=== PATIENT | male | born 1965 | race Caucasian/White ===

== ENCOUNTER 2021-03-12 08:06 | Outpatient (REF) | payer BC, SELFPAY ==
[2021-03-12 10:09] LABS: MANUAL DIFF FLAG NO
[2021-03-12 10:22] LABS: Basophils Absolute Auto 0.1 X10*3/uL (0.0-0.2); Basophils Percent Auto 0.8 % (0-2); Eosinophils Absolute Auto 0.3 X10*3/uL (0.0-0.4); Eosinophils Percent Auto 4.5 % (0-4); Hematocrit 40.7 % (42.0-52.0); Hemoglobin 13.6 g/dl (14.0-18.0); Imm Gran Abs Auto 0.01 X10*3/uL (0.00-0.03); Imm Gran Pct Auto 0.1 % (0.0-0.4); Lymphocytes Absolute Auto 4.1 X10*3/uL (1.2-4.9); Lymphocytes Percent Auto 54.8 % (20-40); Mean Corpuscular HGB Conc 33.4 g/dl (31.0-36.0); Mean Corpuscular Hemoglobin 30.8 pg (27.0-33.0); Mean Corpuscular Volume 92.1 fL (80.0-98.0); Mean Platelet Volume 11.1 fL (9.4-12.4); Monocytes Absolute Auto 0.7 X10*3/uL (0.1-1.2); Monocytes Percent Auto 9.4 % (2-11); Neutrophils Absolute Auto 2.3 x10*3/uL (2.0-8.3); Neutrophils Percent Auto 30.4 % (45-73); Platelet Count 174 X10*3/uL (160-400); Red Blood Count 4.42 X10*6/uL (4.60-5.80); Red Cell Distribution Width 12.8 % (11.0-16.0); White Blood Count 7.5 X10*3/uL (4.8-10.8)
[2021-03-12 10:44] LABS: Alanine Aminotransferase 42 U/L (0-40); Alkaline Phosphatase 50 U/L (39-117); Anion Gap 9 (12-20); Aspartate Amino Transferase 40 U/L (5-37); Bilirubin Total 0.5 mg/dL (0.0-1.0); Blood Urea Nitrogen 14 mg/dL (9-16); Calcium 8.7 mg/dL (8.4-10.2); Carbon Dioxide 29 mmol/L (22-29); Chloride 105 mmol/L (96-108); Cholesterol 206 mg/dL; Estimated Glomerular Filt Rate > 60; Glucose Fasting 95 mg/dL (60-99); HDL Cholesterol 30 mg/dL; LDL Cholesterol Calculated 115 mg/dl; Potassium 4.1 mmol/L (3.3-5.1); Sodium 139 mmol/L (135-145); Total Protein 7.7 g/dL (6.5-8.0); Triglycerides 309 mg/dL
[2021-03-12 11:06] LABS: Ferritin 134 ng/mL (20-250); PSA,Total (Free>4and<10) 1.11 ng/mL (0.00-4.00); Vitamin D 25-OH Total 40.8 ng/mL (>30)
[2021-03-12 11:14] LABS: Estimated Average Glucose 114 mg/dL; Hemoglobin A1c % 5.6 %
== END 2021-03-12 08:07 | disposition home or self-care (01) ==
LOC: HO.10HDL 08:06
PROVIDERS: Visit Provider Internal Medicine Medical Oncology
DX: Z12.5 Encounter for screening for malignant neoplasm of prostate (principal); R10.11 Right upper quadrant pain; K62.89 Other specified diseases of anus and rectum; C44.311 Basal cell carcinoma of skin of nose; K80.20 Calculus of gallbladder without cholecystitis without obstruction
CPT/HCPCS: 36415; 80053; 80061; 82306; 82378; 82728; 83036; 84153; 85025

== ENCOUNTER 2021-03-22 09:01 | Outpatient (REF) | payer BC, SELFPAY ==
--- NOTE | ~2021-03-22 | US_ITS ---
EXAMINATION: US ABDOMEN COMPLETE CLINICAL INFORMATION: Right upper quadrant pain. Calculus of gallbladder without cholecystitis. COMPARISON: None TECHNIQUE: Real-time imaging of the abdominal viscera. FINDINGS: PANCREAS: Normal. ABDOMINAL AORTA: The proximal, mid, and distal segments are normal in caliber. INFERIOR VENA CAVA: Visualized portions are normal. LIVER: The liver is normal in size. The liver contour is normal. There is diffuse liver echogenicity. No focal hepatic lesion. There is no intrahepatic biliary duct dilatation seen. GALLBLADDER: Normal. The gallbladder is physiologically distended without evidence of stones, sludge, polyps, wall thickening or pericholecystic fluid. COMMON BILE DUCT: Normal in caliber measuring 0.7 cm in diameter. RIGHT KIDNEY: Normal. No hydronephrosis. No renal calculi or focal parenchymal lesions. The kidney measures 10.4 cm in maximum dimension. LEFT KIDNEY: Normal. No hydronephrosis. No renal calculi or focal parenchymal lesions. The kidney measures 11.1 cm in maximum dimension. SPLEEN: Normal. The spleen measures 9.7 cm in maximum dimension. FREE FLUID: None. US/US abdomen complete IMPRESSION: Diffuse hepatic steatosis. No focal lesion seen. The gallbladder is unremarkable. Rest of the abdominal ultrasound is unremarkable.
== END 2021-03-22 09:02 | disposition home or self-care (01) ==
LOC: HO.HMGCX 09:01
PROVIDERS: PCP Internal Medicine Medical Oncology; Visit Provider Internal Medicine Medical Oncology
DX: R10.11 Right upper quadrant pain (principal); K80.20 Calculus of gallbladder without cholecystitis without obstruction
CPT/HCPCS: 76700

== ENCOUNTER 2021-04-05 11:32 | Outpatient (REF) | payer BC, SELFPAY ==
[2021-04-05 14:04] LABS: C Reactive Protein 0.12 mg/dL (< or = 0.50)
[2021-04-05 14:27] LABS: TSH reflex Free T4 1.34 uIU/mL (0.32-4.0)
[2021-04-08 16:06] LABS: Gliadin Deamidated IgA Ab 2.7 U/mL; Gliadin Deamidated IgG Ab <1.0 U/mL; Transglutaminase Ab IgG <1.0 U/mL; Transglutaminase IgA <1.0 U/mL
== END 2021-04-05 11:33 | disposition home or self-care (01) ==
LOC: HO.LAB 11:32
PROVIDERS: PCP Internal Medicine Medical Oncology; Visit Provider Nurse Practitioner
DX: R22.9 Localized swelling, mass and lump, unspecified (principal); R10.11 Right upper quadrant pain; K58.0 Irritable bowel syndrome with diarrhea; E66.9 Obesity, unspecified; K64.9 Unspecified hemorrhoids; Z12.11 Encounter for screening for malignant neoplasm of colon
CPT/HCPCS: 36415; 83516; 84443; 86140

== ENCOUNTER 2021-04-06 14:00 | Outpatient (REF) | payer BC, SELFPAY | END 2021-04-06 14:01 | disposition home or self-care (01) | LOC: HO.LNP 14:00 | PROVIDERS: Visit Provider Nurse Practitioner | DX: K58.0 Irritable bowel syndrome with diarrhea (principal); Z12.11 Encounter for screening for malignant neoplasm of colon; Z11.0 Encounter for screening for intestinal infectious diseases | CPT/HCPCS: 87338 ==

== ENCOUNTER → 2021-05-06 11:57 | Outpatient (BNVA) | payer BC, SELFPAY | PROVIDERS: PCP Internal Medicine Medical Oncology; Visit Provider Nurse Practitioner ==

== ENCOUNTER 2021-05-18 07:52 | Day surgery (SDC) | payer BC, SELFPAY ==
[2021-05-12 09:49] VITALS: BMI 30.4
--- NOTE | 2021-05-17 10:34 | P.CONAN_ITS ---
Documented by User: Anny Michael NP 05/17/21 10:35 HPI - Anesthesia Eval Consult details Narrative: 56yo M for Upper Endoscopy and Colonoscopy FOR[facility] Active Problems Active Problems: All Active Problems (Updated 04/13/21 @ 09:04 by TEE Malone) GERD (gastroesophageal reflux disease) (Acute) H. pylori infection (Acute) Irritable bowel syndrome with diarrhea (Acute) Hemorrhoids (Acute) High cholesterol (Acute) Chronic low back pain (Acute) Obesity (Acute) Colon cancer screening (Acute) Past Medical History Medical History History of basal cell carcinoma Social History Social History Are you a primary long term care phlebotomist to a significant other at home: Yes Do you presently have visiting nurse or other home services: No Patient Tobacco Use Status: Former Tobacco user Quit Date: 2018 Patient Interested in Nicotine Replacement: Yes (has nicotine replacement presently) Use of substances other than those prescribed or required for medical reasons: No Are you DNR?: No Advance Directives: No Advance Directives Information Provided: Yes Recently lost weight without trying: No Nutrition Risks: No Nutritional Risk Poor oral hygiene: No Meds Allergies Allergy/AdvReac Type Severity Reaction Status Date / Time No Known Allergies Allergy Verified 05/06/21 12:13 Home Medications Medication Instructions Recorded Confirmed Last Taken Type nicotine (polacrilex) 2 mg buccal 2 mg BUCCAL Q8H PRN 04/05/21 Unknown History lozenge Exam Exam Date and Time: May 17, 2021 1034 Height,Weight and Vital Signs: Height 5 ft 7 in Weight 87.997 kg Pertinent Lab Results Pertinent Lab Results: Laboratory Tests 03/12/21 03/12/21 08:14 08:14 WBC 7.5 Hgb 13.6 L Hct 40.7 L Plt Count 174 Sodium 139 Potassium 4.1 Chloride 105 Carbon Dioxide 29 BUN 14 Creatinine 0.94 Assessment and Plan Assessment Anesthesia Assessment: Chart Reviewed Documented by User: Almas Garcia MD 05/18/21 09:27 [facility] Past Medical History Medical History History of basal cell carcinoma Family History Family history of problems with anesthesia: No Surgical History History of Problems with Anesthesia: No Social History Social History Are you a primary long term care phlebotomist to a significant other at home: Yes Do you presently have visiting nurse or other home services: No Patient Tobacco Use Status: Former Tobacco user Quit Date: 2018 Patient Interested in Nicotine Replacement: Yes (has nicotine replacement prese ntly) Use of substances other than those prescribed or required for medical reasons: No Are you DNR?: No Advance Directives: No Advance Directives Information Provided: Yes Recently lost weight without trying: No Nutrition Risks: No Nutritional Risk Poor oral hygiene: No Meds Allergies Allergy/AdvReac Type Severity Reaction Status Date / Time No Known Allergies Allergy Verified 05/06/21 12:13 Home Medications Medication Instructions Recorded Confirmed Last Taken Type nicotine (polacrilex) 2 mg buccal 2 mg BUCCAL Q8H PRN 04/05/21 Unknown History lozenge Exam Airway Mallampati Class: II TM Dist: >3cm Denture: Upper and Lower Loose/Missing/Broken Teeth: Yes Heart: [id number] Lungs: cta b/l Assessment and Plan Assessment Anesthesia Assessment: Anesthesia Plan Discussed Final Anesthetic Review Family History of Problems with Anesthesia: No History of Problems with Anesthesia: No NPO: Yes ASA Class: II Final Preanesthetic Review: No Changes in Pt Med Stat, Meds/Allgs Chart Reviewed, Consent Obtained/Reviewed and Anes Risks/Benef Reviewed Patient Risk: Intermediate Procedure Risk: Low Assessment/Block/Sedation in SS: Assess/Block/Sedation-SS Anesthetic Plan Anesthetic Plan: MAC: and Agree w/ Assess. and Plan Disposition: Standard PACU
--- NOTE | 2021-05-18 08:21 | P.BOP_ITS ---
Brief Operative Note Date of Service: 05/18/21 Pre-op diagnosis: Colon cancer screening, chronic diarrhea, rectal bleeding, nausea, persistent H pylori infection Post-op diagnosis: other (Gastritis, diverticulosis, hemorrhoids, rectal polyp/mass) Procedure: FLEXIBLE TRANSORAL UPPER GASTROINTESTINAL ENDOSCOPY WITH BIOPSIES AND COLONOSCOPY TILL CECUM WITH BIOPSIES AND SNARE POLYPECTOMY UPPER ENDOSCOPY Consent: Indications for the procedure and potential complications of bleeding, perforation, reaction to medications and missed diagnosis were discussed with the patient and informed consent was obtained. Instrument: Olympus GIF H 190 mid size upper endoscope Monitoring: Vital signs and clinical assessment, continuous EKG monitoring, Pulse oximetry, Carbon Dioxide monitoring and blood pressure monitoring were done throughout the procedure. Procedure: The patient was placed in the left lateral decubitis position and pre-procedure medications were administered and a bite block was placed. The endoscope was inserted into the mouth and advanced under direct vision to the third part of duodenum. A careful inspection was made as the upper endoscope was withdrawn including a retroflexed examination of the proximal stomach; Findings and interventions are described below. Findings: Larynx: Normal Esophagus: GE junction at 40 cms. No esophagitis or Null's. Stomach: Moderate diffuse gastric erythema. Biopsies were obtained from the antrum and body of the stomach. Antral biopsies were sent for H Pylori culture & sensitivities. Grade 2 flap valve on retroflexed examination of the cardia. Duodenum: Normal bulb and descending duodenum. Biopsies were obtained from 3rd part of duodenum to check for celiac sprue. Intervention: Biopsies as noted above COLONOSCOPY PROCEDURE NOTE Consent: Indications for the procedure and potential complications of bleeding, perforation, reaction to medications and missed diagnosis were discussed with the patient and informed consent was obtained. Instrument: Olympus PCF H 190 L variable stiffness pediatric colonoscope Monitoring: Vital signs and clinical assessment, intermittent blood pressure monitoring, continuous EKG monitoring, Pulse oximetry and Carbon Dioxide monitoring were done throughout the procedure. Colon withdrawl time was 21 minutes. Procedure: The patient was placed in the left lateral decubitis position and pre-procedure medications were administered. After a digital rectal examination of the ano-rectum, the video colonoscope was inserted into the rectum and advanced through the colon to the cecum. The colonoscope was slowly withdrawn in a retrograde panoramic fashion and the colon mucosa was carefully examined including a retroflexed view of the rectum. Findings and interventions are described below. Procedure Difficulty: : Without difficulty Findings: Terminal Ileum: Not evaluated Cecum: Normal Ascending Colon: Moderate scattered diverticulosis throughout the colon. Transverse Colon: Moderate scattered diverticulosis throughout the colon. Descending Colon: Moderate scattered diverticulosis throughout the colon. Sigmoid Colon: Moderate diverticulosis Rectum: A 4-5 cms friable and ulcerated mass in the distal rectum - 1-2 cms inside the anal verge. Polypoidal component was removed with a snare (came off before cautery could be applied) and multiple biopsies obtained from the ucerated component Ano-rectum: Moderate non-bleeding internal hemorrhoids Colon preparation: Good Impression and Post Procedure Diagnosis: Endoscopy Findings: STOMACH: Moderate diffuse gastric erythema. Biopsies were obtained from the antrum and body of the stomach. Antral biopsies were sent for H Pylori culture & sensitivities. DUODENUM: Normal - biopsied to check for celiac sprue Colonoscopy Findings: A 4-5 cms friable and ulcerated mass in the distal rectum - 1-2 cms inside the anal verge. Polypoidal component was removed with a snare (came off before cautery could be applied) and multiple biopsies obtained from the ucerated component Moderate diverticulosis seen in the entire colon Moderate hemorrhoids on retroflexed exam. Plan: Await pathology results Patient has an appointment on 06/03/21 in the GI Clinic with Lashae Kohler NP. Repeat Colonoscopy interval based on path results - in 6 to 12 months if rectal mass is malignant. Above findings were reviewed with the patient and Helicobacter Pylori, colon polyps and diverticulosis handouts were given in the discharge area ADDENDUM: Pt called and colon bx results reviewed: D.? Colon, random, biopsy:? Colonic mucosa within normal limits; negative for microscopic colitis. E.? 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 Pt advised to have labs, Chest and Abd CT scan and Pelvic MRI for staging. Urgent referral sent to Oncology. Surgeon: Yogi Guzmán MD Anesthesia: MAC (Dr Prasad) Was an Associate Professor Of Automation used for this Procedure?: Yes Associate Professor Of Automation: Ayah Vieira Estimated blood loss (mL): 0 Pathology: other (a: small bowel bx's b: bx's gastric antrum c: bx's gastric body d: random colon bx's r/o microscopic colitis e: rectal mass) Condition: stable Disposition: PACU
--- NOTE | 2021-05-18 08:21 | MHC.SHP ---
Pre-Procedural Eval Section A Date of Service: 05/18/21 The patient is an INPATIENT: No Changes since office visit: Yes Patient answered all questions; No Cold of Flu in the past 2 weeks, No New Medical Problems and No Changes in Medication The History & Physical has been completed within 30 days and I have reviewed it.: Yes Section B Chief Complaint: GERD, Screening Allergies: Allergies Allergy/AdvReac Type Severity Reaction Status Date / Time No Known Allergies Allergy Verified 05/06/21 12:13 Plan I have reviewed the history and physical and performed a pertinent physical examination on my patient. No changes have occurred unless specified.
--- NOTE | 2021-05-18 08:21 | W.PM.OPN ---
Operative Note Operative Note Date of Service: 05/18/21 Narrative: Pre-op diagnosis:?Colon cancer screening, chronic diarrhea, rectal bleeding, nausea, persistent H pylori infection Post-op diagnosis:?other (Gastritis, diverticulosis, hemorrhoids, rectal polyp/mass) Procedure: FLEXIBLE TRANSORAL UPPER GASTROINTESTINAL ENDOSCOPY WITH BIOPSIES AND COLONOSCOPY TILL CECUM WITH BIOPSIES AND SNARE POLYPECTOMY UPPER ENDOSCOPY Consent:?Indications for the procedure and potential complications of bleeding, perforation, reaction to medications and missed diagnosis were discussed with the patient and informed consent was obtained. Instrument:?Olympus GIF H 190 mid size upper endoscope Monitoring: Vital signs and clinical assessment, continuous EKG monitoring, Pulse oximetry, Carbon Dioxide monitoring and blood pressure monitoring were done throughout the procedure. Procedure:?The patient was placed in the left lateral decubitis position and pre-procedure medications were administered and a bite block was placed. The endoscope was inserted into the mouth and advanced under direct vision to the third part of duodenum. A careful inspection was made as the upper endoscope was withdrawn including a retroflexed examination of the proximal stomach; Findings and interventions are described below. Findings: Larynx:? Normal Esophagus:?GE junction at 40 cms.? No esophagitis or Null's. Stomach:?Moderate diffuse gastric erythema. Biopsies were obtained from the antrum and body of the stomach. Antral biopsies were sent for H Pylori culture & sensitivities. Grade 2 flap valve on retroflexed examination of the cardia. Duodenum:?Normal bulb and descending duodenum.? Biopsies were obtained from 3rd part of duodenum to check for celiac sprue. Intervention:?Biopsies as noted above COLONOSCOPY PROCEDURE NOTE Consent:?Indications for the procedure and potential complications of bleeding, perforation, reaction to medications and missed diagnosis were discussed with the patient and informed consent was obtained. Instrument:?Olympus PCF H 190 L variable stiffness pediatric colonoscope Monitoring:?Vital signs and clinical assessment, intermittent blood pressure monitoring, continuous EKG monitoring, Pulse oximetry and Carbon Dioxide monitoring were done throughout the procedure. Colon withdrawl time was 21 minutes. Procedure:?The patient was placed in the left lateral decubitis position and pre-procedure medications were administered. After a digital rectal examination of the ano-rectum, the video colonoscope was inserted into the rectum and advanced through the colon to the cecum. The colonoscope was slowly withdrawn in a retrograde panoramic fashion and the colon mucosa was carefully examined including a retroflexed view of the rectum. Findings and interventions are described below. Procedure Difficulty:?: Without difficulty Findings: Terminal Ileum: Not evaluated Cecum:? Normal Ascending Colon:??Moderate scattered diverticulosis throughout the colon. Transverse Colon:??Moderate scattered diverticulosis throughout the colon. Descending Colon:? Moderate scattered diverticulosis throughout the colon. Sigmoid Colon:??Moderate diverticulosis Rectum:??A 4-5 cms friable and ulcerated mass in the distal rectum - 1-2 cms inside the anal verge. Polypoidal component was removed with a snare (came off before cautery could be applied) and multiple biopsies obtained from the ucerated component Ano-rectum:??Moderate non-bleeding internal hemorrhoids Colon preparation: Good? Impression and Post Procedure Diagnosis: Endoscopy Findings: STOMACH: Moderate diffuse gastric erythema. Biopsies were obtained from the antrum and body of the stomach. Antral biopsies were sent for H Pylori culture & sensitivities. DUODENUM: Normal - biopsied to check for celiac sprue Colonoscopy Findings: A 4-5 cms friable and ulcerated mass in the distal rectum - 1-2 cms inside the anal verge. Polypoidal component was removed with a snare (came off before cautery could be applied) and multiple biopsies obtained from the ucerated component Moderate diverticulosis seen in the entire colon Moderate hemorrhoids on retroflexed exam. Plan: Await pathology results Patient has an appointment on 06/03/21 in the GI Clinic with? Lashae Kohler NP. Repeat Colonoscopy interval based on path results - in 6 to 12 months if rectal mass is malignant. Above findings were reviewed with the patient and Helicobacter Pylori, colon polyps and diverticulosis handouts were given in the discharge area ADDENDUM: Pt called and colon bx results reviewed: D.? Colon, random, biopsy:? Colonic mucosa within normal limits; negative for microscopic colitis. E.? 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 Pt advised to have labs, Chest and Abd CT scan and Pelvic MRI for staging. Urgent referral sent to Oncology (Dr Pineda who is also patient's PCP). Surgeon:?Yogi Guzmán MD Anesthesia:?MAC (Dr Prasad) Was an Cleaning Validation Consultant used for this Procedure?:?Yes Cleaning Validation Consultant:?Ayah Vieira Estimated blood loss (mL):?0 Pathology:?other (a: small bowel bx's? b: bx's gastric antrum? c: bx's gastric body? d: random colon bx's r/o microscopic colitis? e: rectal mass) Condition:?stable Disposition:?PACU
[2021-05-18 08:50] VITALS: BP 129/81; PULSE 72; RESP 18; TEMP 36.8; O2SAT 97; BMI 30.4
[2021-05-18 10:31] VITALS: BP 98/58; PULSE 78; RESP 15; TEMP 36.6; O2SAT 97
[2021-05-18 10:46] VITALS: BP 136/86; PULSE 64; RESP 18; TEMP 36.6; O2SAT 98
== END 2021-05-18 11:20 ==
LOC: HO.SSS 07:52
PROVIDERS: PCP Internal Medicine Medical Oncology; Visit Provider Internal Medicine Gastroenterology
PROC: (CPT 45385; principal; 2021-05-18 09:20)
DX: Z12.11 Encounter for screening for malignant neoplasm of colon (principal); C20 Malignant neoplasm of rectum; K52.9 Noninfective gastroenteritis and colitis, unspecified; K57.30 Diverticulosis of large intestine without perforation or abscess without bleeding; K64.8 Other hemorrhoids; K21.9 Gastro-esophageal reflux disease without esophagitis; K29.50 Unspecified chronic gastritis without bleeding; A04.8 Other specified bacterial intestinal infections; Z85.828 Personal history of other malignant neoplasm of skin; Z87.891 Personal history of nicotine dependence; Z79.899 Other long term (current) drug therapy
CPT/HCPCS: 45385; 45380; 43239; 36415; 87081; 88305; 88341; 88342

== ENCOUNTER → 2021-06-03 07:08 | Outpatient (BNVA) | payer BC, SELFPAY | PROVIDERS: PCP Internal Medicine Medical Oncology; Visit Provider Nurse Practitioner | DX: C20 Malignant neoplasm of rectum (principal); A04.8 Other specified bacterial intestinal infections; K21.9 Gastro-esophageal reflux disease without esophagitis; K58.0 Irritable bowel syndrome with diarrhea | CPT/HCPCS: 46600 ==

== ENCOUNTER 2021-12-14 11:45 | Outpatient (REF) | payer BC, SELFPAY | END 2021-12-14 11:46 | disposition home or self-care (01) | LOC: HO.LNP 11:45 | PROVIDERS: Visit Provider Nurse Practitioner | DX: A04.8 Other specified bacterial intestinal infections (principal) | CPT/HCPCS: 87338 ==

== ENCOUNTER 2022-02-14 10:44 | Outpatient (REF) | payer BC, SELFPAY ==
[2022-02-14 13:46] LABS: MANUAL DIFF FLAG NO
[2022-02-14 13:52] LABS: Basophils Absolute Auto 0.1 X10*3/uL (0.0-0.2); Basophils Percent Auto 1.6 % (0-2); Eosinophils Absolute Auto 0.2 X10*3/uL (0.0-0.4); Eosinophils Percent Auto 4.5 % (0-4); Hematocrit 38.3 % (42.0-52.0); Hemoglobin 12.3 g/dl (14.0-18.0); Lymphocytes Absolute Auto 2.7 X10*3/uL (1.2-4.9); Lymphocytes Percent Auto 52.8 % (20-40); Mean Corpuscular HGB Conc 32.1 g/dl (31.0-36.0); Mean Corpuscular Hemoglobin 27.3 pg (27.0-33.0); Mean Corpuscular Volume 85.1 fL (80.0-98.0); Mean Platelet Volume 10.6 fL (9.4-12.4); Monocytes Absolute Auto 0.6 X10*3/uL (0.1-1.2); Monocytes Percent Auto 11.4 % (2-11); Neutrophils Absolute Auto 1.5 x10*3/uL (2.0-8.3); Neutrophils Percent Auto 29.7 % (45-73); Platelet Count 161 X10*3/uL (160-400); Red Cell Distribution Width 18.1 % (11.0-16.0); White Blood Count 5.1 X10*3/uL (4.8-10.8)
[2022-02-14 14:04] LABS: Alanine Aminotransferase 32 U/L (0-40); Albumin Level 3.9 g/dL (3.5-5.0); Alkaline Phosphatase 60 U/L (39-117); Anion Gap 13 (12-20); Aspartate Amino Transferase 34 U/L (5-37); Bilirubin Total 0.2 mg/dL (0.0-1.0); Blood Urea Nitrogen 15 mg/dL (9-16); Calcium 8.8 mg/dL (8.4-10.2); Carbon Dioxide 27 mmol/L (22-29); Chloride 104 mmol/L (96-108); Cholesterol 209 mg/dL; Estimated Glomerular Filt Rate > 60; Glucose Fasting 97 mg/dL (60-99); HDL Cholesterol 28 mg/dL; Potassium 4.2 mmol/L (3.3-5.1); Sodium 140 mmol/L (135-145); Total Protein 7.8 g/dL (6.5-8.0); Triglycerides 441 mg/dL
[2022-02-14 15:58] LABS: Prostate Specific Antigen 5.42 ng/mL (<0.05-4.0)
== END 2022-02-14 10:45 | disposition home or self-care (01) ==
LOC: HO.10HDL 10:44
PROVIDERS: Internal Medicine; Visit Provider Internal Medicine Medical Oncology
DX: Z12.5 Encounter for screening for malignant neoplasm of prostate (principal); E66.3 Overweight; C20 Malignant neoplasm of rectum; N40.0 Benign prostatic hyperplasia without lower urinary tract symptoms
CPT/HCPCS: 36415; 80053; 80061; 84153; 85025

== ENCOUNTER → 2022-05-31 09:04 | Outpatient (BNVA) | payer BC, SELFPAY | PROVIDERS: PCP Internal Medicine Medical Oncology; Visit Provider Nurse Practitioner | DX: Z13.89 Encounter for screening for other disorder (principal) ==

== ENCOUNTER → 2022-06-21 12:18 | Outpatient (BNVA) | payer BC, SELFPAY | PROVIDERS: PCP Internal Medicine Medical Oncology; Visit Provider Nurse Practitioner | DX: Z13.89 Encounter for screening for other disorder (principal) ==

== ENCOUNTER 2022-08-16 11:45 | Outpatient (REF) | payer BC, SELFPAY ==
[2022-08-16 13:19] LABS: MANUAL DIFF FLAG NO
[2022-08-16 13:24] LABS: Basophils Absolute Auto 0.1 X10*3/uL (0.0-0.2); Basophils Percent Auto 1.1 % (0-2); Eosinophils Absolute Auto 0.2 X10*3/uL (0.0-0.4); Eosinophils Percent Auto 3.4 % (0-4); Hematocrit 41.6 % (42.0-52.0); Hemoglobin 13.7 g/dl (14.0-18.0); Imm Gran Abs Auto 0.02 X10*3/uL (0.00-0.03); Imm Gran Pct Auto 0.3 % (0.0-0.4); Lymphocytes Absolute Auto 3.6 X10*3/uL (1.2-4.9); Lymphocytes Percent Auto 57.8 % (20-40); Mean Corpuscular HGB Conc 32.9 g/dl (31.0-36.0); Mean Corpuscular Hemoglobin 29.8 pg (27.0-33.0); Mean Corpuscular Volume 90.6 fL (80.0-98.0); Mean Platelet Volume 10.7 fL (9.4-12.4); Monocytes Absolute Auto 0.5 X10*3/uL (0.1-1.2); Monocytes Percent Auto 8.4 % (2-11); Neutrophils Absolute Auto 1.8 x10*3/uL (2.0-8.3); Platelet Count 158 X10*3/uL (160-400); Red Blood Count 4.59 X10*6/uL (4.60-5.80); Red Cell Distribution Width 13.7 % (11.0-16.0); White Blood Count 6.2 X10*3/uL (4.8-10.8)
[2022-08-16 13:40] LABS: Alanine Aminotransferase 33 U/L (0-40); Albumin Level 3.9 g/dL (3.5-5.0); Alkaline Phosphatase 69 U/L (39-117); Anion Gap 10 (12-20); Aspartate Amino Transferase 31 U/L (5-37); Bilirubin Total 0.3 mg/dL (0.0-1.0); Blood Urea Nitrogen 13 mg/dL (9-16); Calcium 8.8 mg/dL (8.4-10.2); Carbon Dioxide 26 mmol/L (22-29); Chloride 109 mmol/L (96-108); Estimated Glomerular Filt Rate > 60; Glucose Random 120 mg/dL (60-115); Potassium 4.2 mmol/L (3.3-5.1); Sodium 141 mmol/L (135-145); Total Protein 7.4 g/dL (6.5-8.0)
[2022-08-17 10:19] LABS: Free Prostate Spec Ag 0.9 ng/mL; Percent Free Prostate Spec Ag 32 % (calc) (>25); Prostate Specific Ag Total 2.8 ng/mL (< OR = 4.0)
== END 2022-08-16 11:46 | disposition home or self-care (01) ==
LOC: HO.10HDL 11:45
PROVIDERS: Visit Provider Internal Medicine Medical Oncology
DX: Z12.5 Encounter for screening for malignant neoplasm of prostate (principal); E66.3 Overweight; C20 Malignant neoplasm of rectum; N40.0 Benign prostatic hyperplasia without lower urinary tract symptoms
CPT/HCPCS: 36415; 80053; 84154; 85025

== ENCOUNTER 2023-02-14 11:35 | Outpatient (REF) | payer BC, SELFPAY ==
[2023-02-14 13:28] LABS: MANUAL DIFF FLAG NO
[2023-02-14 13:57] LABS: Basophils Absolute Auto 0.1 X10*3/uL (0.0-0.2); Basophils Percent Auto 1.3 % (0-2); Eosinophils Absolute Auto 0.3 X10*3/uL (0.0-0.4); Eosinophils Percent Auto 4.2 % (0-4); Hematocrit 43.4 % (42.0-52.0); Hemoglobin 14.5 g/dl (14.0-18.0); Imm Gran Abs Auto 0.01 X10*3/uL (0.00-0.03); Imm Gran Pct Auto 0.2 % (0.0-0.4); Lymphocytes Absolute Auto 3.2 X10*3/uL (1.2-4.9); Lymphocytes Percent Auto 51.5 % (20-40); Mean Corpuscular HGB Conc 33.4 g/dl (31.0-36.0); Mean Corpuscular Hemoglobin 30.9 pg (27.0-33.0); Mean Corpuscular Volume 92.3 fL (80.0-98.0); Mean Platelet Volume 10.8 fL (9.4-12.4); Monocytes Absolute Auto 0.6 X10*3/uL (0.1-1.2); Monocytes Percent Auto 9.2 % (2-11); Neutrophils Absolute Auto 2.1 x10*3/uL (2.0-8.3); Neutrophils Percent Auto 33.6 % (45-73); Platelet Count 166 X10*3/uL (160-400); Red Cell Distribution Width 13.3 % (11.0-16.0); White Blood Count 6.2 X10*3/uL (4.8-10.8)
[2023-02-14 14:36] LABS: Anion Gap 14 (12-20)
[2023-02-14 14:42] LABS: Alanine Aminotransferase 39 U/L (0-40); Albumin Level 4.1 g/dL (3.5-5.0); Alkaline Phosphatase 54 U/L (39-117); Aspartate Amino Transferase 35 U/L (5-37); Bilirubin Total 0.5 mg/dL (0.0-1.0); Blood Urea Nitrogen 16 mg/dL (9-16); Calcium 9.8 mg/dL (8.4-10.2); Carbon Dioxide 25 mmol/L (22-29); Chloride 107 mmol/L (96-108); Cholesterol 226 mg/dL (<200); Estimated Glomerular Filt Rate > 60; Glucose Fasting 104 mg/dL (60-99); HDL Cholesterol 34 mg/dL (>40); LDL Cholesterol Calculated 155 mg/dL (<100); Potassium 4.7 mmol/L (3.3-5.1); Sodium 141 mmol/L (135-145); Total Protein 8.3 g/dL (6.5-8.0); Triglycerides 189 mg/dL (<150)
== END 2023-02-14 11:36 | disposition home or self-care (01) ==
LOC: HO.10HDL 11:35
PROVIDERS: Visit Provider Internal Medicine Medical Oncology
DX: Z12.5 Encounter for screening for malignant neoplasm of prostate (principal); C44.311 Basal cell carcinoma of skin of nose; E66.3 Overweight; N40.0 Benign prostatic hyperplasia without lower urinary tract symptoms
CPT/HCPCS: 36415; 80053; 80061; 84153; 85025

== ENCOUNTER 2023-06-26 09:18 | Outpatient (REF) | payer BC, SELFPAY ==
[2023-06-26 09:35] LABS: MANUAL DIFF FLAG NO
[2023-06-26 09:51] LABS: Basophils Absolute Auto 0.1 X10*3/uL (0.0-0.2); Basophils Percent Auto 1.4 % (0-2); Eosinophils Absolute Auto 0.3 X10*3/uL (0.0-0.4); Eosinophils Percent Auto 5.3 % (0-4); Hematocrit 41.2 % (42.0-52.0); Hemoglobin 14.1 g/dl (14.0-18.0); Lymphocytes Absolute Auto 3.2 X10*3/uL (1.2-4.9); Lymphocytes Percent Auto 54.7 % (20-40); Mean Corpuscular HGB Conc 34.2 g/dl (31.0-36.0); Mean Corpuscular Volume 90.5 fL (80.0-98.0); Monocytes Absolute Auto 0.6 X10*3/uL (0.1-1.2); Monocytes Percent Auto 9.6 % (2-11); Neutrophils Absolute Auto 1.7 x10*3/uL (2.0-8.3); Platelet Count 159 X10*3/uL (160-400); Red Blood Count 4.55 X10*6/uL (4.60-5.80); Red Cell Distribution Width 13.4 % (11.0-16.0); White Blood Count 5.9 X10*3/uL (4.8-10.8)
[2023-06-26 10:47] LABS: Alanine Aminotransferase 244 U/L (0-40); Albumin Level 3.7 g/dL (3.5-5.0); Alkaline Phosphatase 91 U/L (39-117); Anion Gap 11 (12-20); Aspartate Amino Transferase 131 U/L (5-37); Bilirubin Total 0.4 mg/dL (0.0-1.0); Blood Urea Nitrogen 17 mg/dL (9-16); Calcium 9.1 mg/dL (8.4-10.2); Carbon Dioxide 26 mmol/L (22-29); Chloride 106 mmol/L (96-108); Estimated Glomerular Filt Rate > 60; Gamma Glutamyl Transpeptidase 135 U/L (11-51); Glucose Random 119 mg/dL (60-115); Potassium 4.1 mmol/L (3.3-5.1); Sodium 139 mmol/L (135-145)
[2023-06-26 11:28] LABS: HBS Num1 0.54 mIU/mL (0-7.99); HBc Num1 0.08 S/CO (0.00-0.79); HBsAGNum1 0.72 S/CO (0.00-0.99); Hepatitis A Antibody IgM 0.22 Index (0-0.79); Hepatitis B Core Antibody Nonreactive (Nonreactive); Hepatitis B Surface Antigen Negative (Negative); ~HepC Num1 13.68 S/CO (0.00-0.79); ~Hepatitis A Antibody IgM Nonreactive (Nonreactive); ~Hepatitis B Surface Antibody NONREACTIVE (Nonreactive); ~Hepatitis C Antibody Reactive (Nonreactive)
== END 2023-06-26 09:19 | disposition home or self-care (01) ==
LOC: HO.LAB 09:18
PROVIDERS: PCP Internal Medicine Medical Oncology; Visit Provider Internal Medicine Medical Oncology
DX: C20 Malignant neoplasm of rectum (principal); R79.89 Other specified abnormal findings of blood chemistry; K75.9 Inflammatory liver disease, unspecified
CPT/HCPCS: 36415; 80053; 82977; 85025; 86704; 86706; 86709; 86803; 87340

== ENCOUNTER 2023-08-15 12:24 | Outpatient (AMB) | payer BC, SELFPAY ==
--- NOTE | 2023-08-15 12:29 | MHC.OFFVIS ---
Intake Vital Signs 08/15/23 12:32 Height 5 ft 7 in Weight 183 lb BMI 28.7 BP 150/73 H Blood Pressure Location Lt brachial Position Sitting Pulse 69 Intake Visit Reasons: Acute hepatitis C Intake Note: Patient follow up for Acute HCV. Patient denies any GI issues. Firebreak Cutter Required: No Accompanied by: Self / Same As Patient Allergies No Known Allergies Allergy (Verified 08/15/23 12:29) HPI Acute hepatitis C HPI Details Assessment & Plan (1) Irritable bowel syndrome with diarrhea: Code(s): K58.0 - Irritable bowel syndrome with diarrhea Plan: He found that his head really cleared up with stopping the bentyl, he finds that he has a grumbly stomach at times, but isn't doing too badly with diarrhea and his bowels. I suggest he can use 1/2 a pill prn to avoid foggy headedness. He also is using Benefiber is also very helpful. Dr. Mock at [facility] the rectal surgeon is now taking over his colonoscopies and he has one upcoming in June. He continues to do well on his omeprazole bid, but now he can probably follow with his PCP for this. He is satisfied with this plan. ROV PRN. (2) GERD (gastroesophageal reflux disease): Code(s): K21.9 - Gastro-esophageal reflux disease without esophagitis (3) Adenocarcinoma of rectum: Code(s): C20 - Malignant neoplasm of rectum DTT LABS: Laboratory Tests 06/26/23 09:33 WBC 5.9 RBC 4.55 L Hgb 14.1 Hct 41.2 L Plt Count 159 L Estimated GFR > 60 Total Bilirubin 0.4 GGT 135 H AST 131 H ALT 244 H Alkaline Phosphata se 91 Hepatitis A IgM Ab Nonreactive Hep Bs Antigen Negative Hep Bs Antibody NONREACTIVE Hep B Core Total A b Nonreactive Hepatitis C Ab (EI A) Reactive H TODAY'S VISIT He has a here today for an apparent new onset hepatitis C infection. This was uncovered in June when his primary care provider did some basic lab work and he had triple digit transaminases. He feels he has been having mild subjective fevers at night, but no other liver sx except his gi issues. He did have substance abuse issues 17 years ago but has been completely clean since then, has had no sexual relationships, and no known blood exposures. This leads him to wonder if he could have ?had it all along and it just came to the front. ? Viruses can do ulcerative tricky things but usually hepatitis C does not like dormant but I have heard of strangers things. At any rate it really does not matter how he got it except that he tries not to repeat any risky behaviors as I educate him about the different genotype and how when we [facility] you still can be susceptible to lorrie a different genotype. ROV 2 weeks [facility] Medical History GERD (gastroesophageal reflux disease) High cholesterol History of basal cell carcinoma Hx of malignant neoplasm of colon Irritable bowel syndrome with diarrhea Surgical History History of esophagogastroduodenoscopy (EGD) Hx of colonoscopy No pertinent past surgical history Family History Mother Lung cancer Social History Household Members: Spouse Housing: House Are you a primary healthcare applications analyst to a significant other at home: Yes Do you presently have visiting nurse or other home services: No Patient Tobacco Use Status: Former Tobacco user Quit Date: 2018 service: No Current occupational status: employed 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 [employer] Const Denies fatigue, Denies fever(s), Denies night sweats, Denies poor appetite and Denies weight loss ENT Reports Normal hearing present, Denies dental pain, Denies dysphagia, Denies hearing loss, Denies mouth pain, Denies odynophagia, Denies throat swelling, Denies tongue swelling and Reports other (Dentition adequate) Card Reports no additional complaints Resp Reports no additional complaints GI Details: Denies abdominal pain, Denies melena, Reports bloating, Denies hematochezia, Denies constipation, Denies GI cramping, Denies dysphagia, Denies excessive flatus, Denies early satiety, Reports dyspepsia, Reports heartburn, Denies diarrhea, Denies nausea, Denies odynophagia, Denies vomiting and Denies hematemesis Skin/Breast Denies pruritus, Denies lesions, Denies rash and Denies jaundice Neuro Reports Normal hearing present and Denies Abnormal speech present Endo Denies fatigue Aller/Immun Denies throat swelling and Denies tongue swelling Physical Exam Vital Signs: Last Vital Signs Pulse 69 08/15/23 12:32 BP 150/73 H 08/15/23 12:32 BMI result Body Mass Index 28.7 Const General: cooperative, no acute distress, well developed and well groomed Nutritional Appearance: average body habitus and well nourished Orientation/consciousness: oriented to person, oriented to place and oriented to time Limitations: No language barrier HEENT Head: Yes normocephalic and Yes atraumatic Eyes General: appearance normal, both eyes and all related structures Pupils: Equal, round and reactive pupils present Neck Neck: Yes normal visual inspection and Yes no lymphadenopathy Thyroid: Thyroid normal Resp Effort & Inspection: normal respiratory effort and able to speak in complete sentences Auscultation: clear to auscultation bilaterally Cardio Rate: regular rate Rhythm: regular rhythm Heart sounds: Normal, physiologic split S2 sound present Peripheral pulses: radial pulses present and posterior tibial pulses present GI Inspection: No distended and No Abdominal panniculus present Palpation (GI): Soft to palpation, nontender, no guarding, not rigid and No hepatosplenomegaly present Percussion: Yes normal to percussion Auscultation: normal bowel sounds Rectal Exam - Male: Yes deferred Skin General skin exam: no rashes or lesions noted, turgor normal, skin not dry, no jaundice, No spider nevi and no striae Rashes: no rashes Nails: normal Neuro General: oriented to person, oriented to place and oriented to time Cranial nerves: Yes Equal, round and reactive pupils present and Yes Normal hearing present Speech: No Abnormal speech present Extrem General: Yes normal to inspection, No clubbing, No cyanosis and No edema Psych Appearance: grossly normal and well kempt Mental Status: mental status grossly normal Speech and movement: Normal speech and movement present Affect: normal affect Attitude: cooperative Thought process: Normal thought process present and not confabulating Thought content: Normal thought content present Insight: Fair insight present (Psych) and Limited insight present (Psych) Judgement: Fair judgement present (Psych) and Limited judgement present (Psych) Results Reviewed Results Reviewed: Laboratory Tests 06/26/23 09:33 WBC 5.9 RBC 4.55 L Hgb 14.1 Hct 41.2 L Plt Count 159 L Estimated GFR > 60 Total Bilirubin 0.4 GGT 135 H AST 131 H ALT 244 H Alkaline Phosphatase 91 Hepatitis A IgM Ab Nonreactive Hep Bs Antigen Negative Hep Bs Antibody NONREACTIVE Hep B Core Total Ab Nonreactive Hepatitis C Ab (EIA) Reactive H Assessment & Plan Assessment & Plan (1) Hepatitis C infection: Code(s): B19.20 - Unspecified viral hepatitis C without hepatic coma Plan He has a here today for an apparent new onset hepatitis C infection. This was uncovered in June when his primary care provider did some basic lab work and he had triple digit transaminases. He feels he has been having mild subjective fevers at night, but no other liver sx except his gi issues. He did have substance abuse issues 17 years ago but has been completely clean since then, has had no sexual relationships, and no known blood exposures. This leads him to wonder if he could have ?had it all along and it just came to the front. ? Viruses can do ulcerative tricky things but usually hepatitis C does not like dormant but I have heard of strangers things. At any rate it really does not matter how he got it except that he tries not to repeat any risky behaviors as I educate him about the different genotype and how when we [facility] you still can be susceptible to lorrie a different genotype. ROV 2 weeks Orders: Orders Liver Fibrosis Pnl 08/15/23 B19.20 - Unspecified viral hepatitis C without hepatic coma HIV Ab/Ag 08/15/23 B19.20 - Unspecified viral hepatitis C without hepatic coma Comprehensive Met. Panel 08/15/23 B19.20 - Unspecified viral hepatitis C without hepatic coma US abdomen comp w elastography 08/15/23 B19.20 - Unspecified viral hepatitis C without hepatic coma Hepatitis C Genotype 08/15/23 B19.20 - Unspecified viral hepatitis C without hepatic coma Hepatitis C Viral Load 08/15/23 B19.20 - Unspecified viral hepatitis C without hepatic coma Medications: New omeprazole 40 mg PO DAILY 30 caps 6RF 30 days Discontinued omeprazole Discontinued Reason: Doctor's Order 20 mg PO BID 180 caps 1RF A04.8 - Other specified bacterial intestinal infections, K21.9 - Gastro-esophageal reflux disease without esophagitis Resumed dicyclomine 20 mg PO QID 120 tabs 1RF K58.0 - Irritable bowel syndrome with diarrhea, Z12.11 - Encounter for screening for malignant neoplasm of colon dicyclomine 20 mg PO QID 120 tabs 1RF K58.0 - Irritable bowel syndrome with diarrhea, Z12.11 - Encounter for screening for malignant neoplasm of colon Coding Level of Care Code Est Pt Level 4 (31364) Diagnoses Hepatitis C infection B19.20
[2023-08-15 12:32] VITALS: BP 150/73; PULSE 69; BMI 28.7
== END 2023-08-15 13:03 | disposition home or self-care (01) ==
PROVIDERS: PCP Internal Medicine Medical Oncology; Visit Provider Nurse Practitioner
DX: B19.20 Unspecified viral hepatitis C without hepatic coma (principal)
CPT/HCPCS: 99214

== ENCOUNTER 2023-08-15 12:24 | Outpatient (REF) | payer BC, SELFPAY ==
[2023-08-15 15:30] LABS: Alanine Aminotransferase 79 U/L (0-40); Albumin Level 3.9 g/dL (3.5-5.0); Alkaline Phosphatase 54 U/L (39-117); Anion Gap 11 (12-20); Aspartate Amino Transferase 65 U/L (5-37); Bilirubin Total 0.5 mg/dL (0.0-1.0); Blood Urea Nitrogen 10 mg/dL (9-16); Calcium 9.5 mg/dL (8.4-10.2); Carbon Dioxide 26 mmol/L (22-29); Chloride 107 mmol/L (96-108); Estimated Glomerular Filt Rate > 60; Glucose Random 101 mg/dL (60-115); Potassium 4.8 mmol/L (3.3-5.1); Sodium 139 mmol/L (135-145); Total Protein 8.2 g/dL (6.5-8.0)
[2023-08-16 08:27] LABS: HIV AB/AG Nonreactive (Nonreactive); HIV Num 1 0.04 S/CO (0.00-0.99)
[2023-08-17 14:18] LABS: HCV Log PCR 6.06 Log IU/mL (NOT DETECTED); HepC Viral Load 1140000 IU/mL (NOT DETECTED)
[2023-08-20 13:23] LABS: Hepatitis C Genotype 2
[2023-08-24 17:58] LABS: FIB-ALT 70 U/L (9-46); FIB-Alpha-2-Macroglobulin 296 mg/dL (106-279); FIB-Apolipoprotein A1 158 mg/dL (94-176); FIB-GGT 43 U/L (3-85); FIB-Haptoglobin 92 mg/dL (43-212); FIB-Total Bilirubin 0.4 mg/dL (0.2-1.2); Liver Fibrosis Score 0.45; Liver Fibrosis Stage F1-F2; Nec Inflam Act Grade A1-A2; Nec Inflam Act Score 0.47
== END 2023-08-15 12:25 | disposition home or self-care (01) ==
LOC: HO.LAB 12:24
PROVIDERS: PCP Internal Medicine Medical Oncology; Visit Provider Nurse Practitioner
DX: Z11.4 Encounter for screening for human immunodeficiency virus [HIV] (principal); B19.20 Unspecified viral hepatitis C without hepatic coma
CPT/HCPCS: 36415; 80053; 81596; 87389; 87522; 87902

== ENCOUNTER 2023-09-04 08:08 | Outpatient (REF) | payer BC, SELFPAY ==
--- NOTE | ~2023-09-04 | US_ITS ---
EXAMINATION: US COMPLETE ABDOMEN WITH LIVER ELASTOGRAPHY CLINICAL INFORMATION: Hepatitis C. COMPARISON: Abdominal ultrasound dated 03/22/2021. TECHNIQUE: Real-time imaging of the abdominal viscera. Noninvasive ultrasound liver fibrosis assessment is performed using Divina ElastPQ point quantification shear wave elastography (2D-SWE) with a C5-2 MHz transducer. Multiple elastography samples are obtained. FINDINGS: PANCREAS: Normal. The visualized pancreatic head and body are normal in appearance. The remainder of the pancreas is obscured from visualization by the overlying bowel gas. ABDOMINAL AORTA: The proximal, middle, and distal aortic segments are normal in caliber. INFERIOR VENA CAVA: Visualized portions are normal. LIVER: The liver demonstrates normal size, contour and increased echogenicity. No focal lesion or intrahepatic biliary duct dilatation. The right lobe measures 16.0 cm in length. The left lobe measures 9.3 cm in length. Portal flow is towards the liver (hepatopetal). Shear wave liver elastography median stiffness is 1.47 m/s (reference: normal median stiffness is 1.3 m/s or less). IQR/median stiffness to assess sampling precision is 0.26 (reference: good quality data set is IQR/median stiffness of 0.15 or less). GALLBLADDER: Normal. The gallbladder is physiologically distended without evidence of stones, sludge, polyps, wall thickening or pericholecystic fluid. COMMON BILE DUCT: Normal in caliber measuring 0.4 cm in diameter. RIGHT KIDNEY: Normal. No hydronephrosis. No renal calculi or focal parenchymal lesions. The kidney measures 11.1 cm in maximum dimension. LEFT KIDNEY: Normal. No hydronephrosis. No renal calculi or focal parenchymal lesions. The kidney measures 11.3 cm in maximum dimension. SPLEEN: Normal. The spleen measures 10.2 cm in maximum dimension. FREE FLUID: None. US/US abdomen comp w elastography IMPRESSION: 1. There is generalized increase in hepatic echotexture, consistent with fatty infiltration or hepatocellular disease. Please correlate clinically. No focal hepatic mass or intrahepatic biliary dilatation is seen. 2. Liver elastography: Although measurements appear to rule out compensated advanced chronic liver disease, there is statistical variability of the sampling which decreases accuracy. REFERENCE: Society of Radiologists in Ultrasound Liver Stiffness Thresholds (2020): LIVER STIFFNESS THRESHOLDS: *Liver Stiffness equal or less than 1.3 m/s: High probability of being normal. *Liver Stiffness less than 1.7 m/s: In the absence of other known clinical signs, rules out compensated advanced chronic liver disease. *Liver Stiffness 1.7-2.1 m/s: Suggestive of compensated advanced chronic liver disease but need further test for confirmation. *Liver Stiffness over 2.1 m/s: Rules in compensated advanced chronic liver disease. *Liver Stiffness over 2.4 m/s: Suggestive of clinically significant portal hypertension. QUALITY OF DATA SET: *IQR/Median value equal or less than 0.15 implies a quality data set. *IQR/Median value over 0.15 implies a poor quality data set. SIGNIFICANT CHANGE FROM PRIOR EXAM: Significant change if liver stiffness measurement is 10% or greater from prior exam. OTHER CONSIDERATIONS: The stage of liver fibrosis may be overestimated in the setting of acute hepatitis, liver inflammation, elevated liver function tests, hepatic vascular congestion, obstructive cholestasis, non-fasting state, and infiltrative diseases such as amyloidosis and lymphoma. In some patients with NAFLD, the liver stiffness thresholds for compensated advanced chronic liver disease may be lower. In causes other than viral hepatitis and NAFLD, liver stiffness thresholds are not well established.
== END 2023-09-04 08:09 | disposition home or self-care (01) ==
LOC: HO.US 08:08
PROVIDERS: PCP Internal Medicine Medical Oncology; Visit Provider Nurse Practitioner
DX: B19.20 Unspecified viral hepatitis C without hepatic coma (principal)
CPT/HCPCS: 76700; 76981

== ENCOUNTER 2023-09-12 08:36 | Outpatient (AMB) | payer BC, SELFPAY ==
--- NOTE | 2023-09-12 08:41 | MHC.OFFVIS ---
Vital Signs 09/12/23 08:42 Height 5 ft 7 in Weight 175 lb 14.862 oz BMI 27.6 BP 137/59 L Blood Pressure Location Rt brachial Position Sitting Pulse 65 Intake Visit Reasons: 2 week follow up Intake Note: Sukhjinder returns to in office visit today in follow up Hep C. CC: Patient returns to discuss US and lab results today. He denies having any GI symptoms or concerns. 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 This was uncovered in June when his primary care provider did some basic lab work and he had triple digit transaminases. He feels he has been having mild subjective fevers at night, but no other liver sx except his gi issues. He did have substance abuse issues 17 years ago but has been completely clean since then, has had no sexual relationships, and no known blood exposures. This leads him to wonder if he could have ?had it all along and it just came to the front. ? Viruses can do ulcerative tricky things but usually hepatitis C does not like dormant but I have heard of strangers things. At any rate it really does not matter how he got it except that he tries not to repeat any risky behaviors as I educate him about the different genotype and how when we [facility] you still can be susceptible to lorrie a different genotype. ROV 2 weeks Orders: Orders Liver Fibrosis Pnl 08/15/23 B19.20 - Unspecified viral hepatitis C without hepatic coma HIV Ab/Ag 08/15/23 B19.20 - Unspecified viral hepatitis C without hepatic coma Comprehensive Met. Panel 08/15/23 B19.20 - Unspecified viral hepatitis C without hepatic coma US abdomen comp w elastography 08/15/23 B19.20 - Unspecified viral hepatitis C without hepatic coma Hepatitis C Genotype 08/15/23 B19.20 - Unspecified viral hepatitis C without hepatic coma Hepatitis C Viral Load 08/15/23 B19.20 - Unspecified viral hepatitis C without hepatic coma Medications: New omeprazole 40 mg PO DAILY 30 caps 6RF 30 days Discontinued omeprazole Discontinued Reason: Doctor's Order 20 mg PO BID 180 caps 1RF A04.8 - Other specified bacterial intestinal infections, K21.9 - Gastro-esophageal reflux disease without esophagitis Resumed dicyclomine 20 mg PO QID 120 tabs 1RF K58.0 - Irritable bowel syndrome with diarrhea, Z12.11 - Encounter for screening for malignant neoplasm of colon dicyclomine 20 mg PO QID 120 tabs 1RF K58.0 - Irritable bowel syndrome with diarrhea, Z12.11 - Encounter for screening for malignant neoplasm of colon LABS Laboratory Tests 06/26/23 08/15/23 09:33 13:34 Estimated GFR > 60 Total Bilirubin 0.5 AST 131 H 65 H ALT 244 H 79 H Alkaline Phosphatase 54 Liver GGT 43 Liver Fibrosis Stage F1-F2 Hepatitis C Ab (EIA) Reactive H Hep C Viral Load 9067843 H Hep C Viral Load Log 6.06 H Hepatitis C Genotype 2 HIV 1&2 Ab/P24 Ag 4thGn Nonreactive US ABD WITH ELASTOGRAPHY 09/07/23 (F-1) FINDINGS: PANCREAS: Normal. The visualized pancreatic head and body are normal in appearance. The remainder of the pancreas is obscured from visualization by the overlying bowel gas. ABDOMINAL AORTA: The proximal, middle, and distal aortic segments are normal in caliber. INFERIOR VENA CAVA: Visualized portions are normal. LIVER: The liver demonstrates normal size, contour and increased echogenicity. No focal lesion or intrahepatic biliary duct dilatation. The right lobe measures 16.0 cm in length. The left lobe measures 9.3 cm in length. Portal flow is towards the liver (hepatopetal). Shear wave liver elastography median stiffness is 1.47 m/s (reference: normal median stiffness is 1.3 m/s or less). IQR/median stiffness to assess sampling precision is 0.26 (reference: good quality data set is IQR/median stiffness of 0.15 or less). GALLBLADDER: Normal. The gallbladder is physiologically distended without evidence of stones, sludge, polyps, wall thickening or pericholecystic fluid. COMMON BILE DUCT: Normal in caliber measuring 0.4 cm in diameter. RIGHT KIDNEY: Normal. No hydronephrosis. No renal calculi or focal parenchymal lesions. The kidney measures 11.1 cm in maximum dimension. LEFT KIDNEY: Normal. No hydronephrosis. No renal calculi or focal parenchymal lesions. The kidney measures 11.3 cm in maximum dimension. SPLEEN: Normal. The spleen measures 10.2 cm in maximum dimension. FREE FLUID: None. US/US abdomen comp w elastography IMPRESSION: 1. There is generalized increase in hepatic echotexture, consistent with fatty infiltration or hepatocellular disease. Please correlate clinically. No focal hepatic mass or intrahepatic biliary dilatation is seen. 2. Liver elastography: Although measurements appear to rule out compensated advanced chronic liver disease, there is statistical variability of the sampling which decreases accuracy. CORRESPONDENCE He has a here today for an apparent new onset hepatitis C infection. This was uncovered in June when his primary care provider did some basic lab work and he had triple digit transaminases. On 09/06/23 @ 09:16 Cassia Koehler Wrote To Kohler,July Epclusa received. I confirmed with patient and we went over Hep C education. I advised patient to take Epclusa 4 hours before his Omeprazole. just , patient states he als ocompleted his labs On 09/06/23 @ 00:00 System Wrote To Cassia Koehler Reminder sent to recipient On 08/30/23 @ 08:09 Cassia Koehler Wrote To Cassia Koehler check on status of Epclusa x1 week - script sent on 08/30/23 TODAY'S VISIT He already started the epclusa on 09/05 as a start date. So far he is tolerating it without any side effects. We review dosing, what to do if he misses doses, and most common side effects so that he can be prepared. If he has any problems should contact our office. At this point will do a return office visit the week of 10/15 and go over his lab work at that point. [facility] Medical History Hx of malignant neoplasm of colon GERD (gastroesophageal reflux disease) Irritable bowel syndrome with diarrhea History of basal cell carcinoma High cholesterol Surgical History History of esophagogastroduodenoscopy (EGD) Hx of colonoscopy No pertinent past surgical history Family History Mother Lung cancer Social History Household Members: Spouse Housing: House Are you a primary resident care technician to a significant other at home: Yes Do you presently have visiting nurse or other home services: No Patient Tobacco Use Status: Former Tobacco user service: No Current occupational status: employed 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 Review of Systems Const Reports fatigue, Denies fever(s), Denies night sweats, Denies poor appetite and Denies weight loss Eyes Details: glasses ENT Reports Normal hearing present, Denies dental pain, Denies dysphagia, Denies hearing loss, Denies mouth pain, Denies odynophagia, Denies throat swelling, Denies tongue swelling and Reports other (Dentition adequate) Card Reports no additional complaints Resp Reports no additional complaints GI Details: Denies abdominal pain, Denies melena, Denies bloating, Denies hematochezia, Denies constipation, Denies GI cramping, Denies dysphagia, Denies excessive flatus, Denies early satiety, Denies heartburn, Denies diarrhea, Denies nausea, Denies odynophagia, Denies vomiting and Denies hematemesis Skin/Breast Denies pruritus, Denies lesions, Denies rash and Denies jaundice Neuro Reports Normal hearing present and Denies Abnormal speech present Endo Reports fatigue Aller/Immun Denies throat swelling and Denies tongue swelling Physical Exam Vital Signs: Last Vital Signs Pulse 65 09/12/23 08:42 BP 137/59 L 09/12/23 08:42 BMI result Body Mass Index 27.6 Const General: cooperative, no acute distress, well developed and well groomed Nutritional Appearance: average body habitus and well nourished Orientation/consciousness: oriented to person, oriented to place and oriented to time Limitations: No language barrier HEENT Head: Yes normocephalic and Yes atraumatic Eyes General: appearance normal, both eyes and all related structures Pupils: Equal, round and reactive pupils present Neck Neck: Yes normal visual inspection and Yes no lymphadenopathy Thyroid: Thyroid normal Resp Effort & Inspection: normal respiratory effort and able to speak in complete sentences Auscultation: clear to auscultation bilaterally Cardio Rate: regular rate Rhythm: regular rhythm Heart sounds: Normal, physiologic split S2 sound present Peripheral pulses: radial pulses present and posterior tibial pulses present GI Inspection: No distended and No Abdominal panniculus present Palpation (GI): Soft to palpation, nontender, no guarding, not rigid and No hepatosplenomegaly present Percussion: Yes normal to percussion Auscultation: normal bowel sounds Rectal Exam - Male: Yes deferred Skin General skin exam: no rashes or lesions noted, turgor normal, skin not dry, no jaundice, No spider nevi and no striae Rashes: no rashes Nails: normal Neuro General: oriented to person, oriented to place and oriented to time Cranial nerves: Yes Equal, round and reactive pupils present and Yes Normal hearing present Speech: No Abnormal speech present Extrem General: Yes normal to inspection, No clubbing, No cyanosis and No edema Psych Appearance: grossly normal and well kempt Mental Status: mental status grossly normal Speech and movement: Normal speech and movement present Affect: normal affect Attitude: cooperative Thought process: Normal thought process present and not confabulating Thought content: Normal thought content present Insight: Limited insight present (Psych) Judgement: Limited judgement present (Psych) Results Reviewed Results Reviewed: Laboratory Tests 06/26/23 08/15/23 09:33 13:34 Estimated GFR > 60 Total Bilirubin 0.5 AST 131 H 65 H ALT 244 H 79 H Alkaline Phosphatase 54 Liver GGT 43 Liver Fibrosis Stage F1-F2 Hepatitis C Ab (EIA) Reactive H Hep C Viral Load [id number] H Hep C Viral Load Log 6.06 H Hepatitis C Genotype 2 HIV 1&2 Ab/P24 Ag 4thGn Nonreactive US ABD WITH ELASTOGRAPHY 09/07/23 (F-1) FINDINGS: PANCREAS: Normal. The visualized pancreatic head and body are normal in appearance. The remainder of the pancreas is obscured from visualization by the overlying bowel gas. ABDOMINAL AORTA: The proximal, middle, and distal aortic segments are normal in caliber. INFERIOR VENA CAVA: Visualized portions are normal. LIVER: The liver demonstrates normal size, contour and increased echogenicity. No focal lesion or intrahepatic biliary duct dilatation. The right lobe measures 16.0 cm in length. The left lobe measures 9.3 cm in length. Portal flow is towards the liver (hepatopetal). Shear wave liver elastography median stiffness is 1.47 m/s (reference: normal median stiffness is 1.3 m/s or less). IQR/median stiffness to assess sampling precision is 0.26 (reference: good quality data set is IQR/median stiffness of 0.15 or less). GALLBLADDER: Normal. The gallbladder is physiologically distended without evidence of stones, sludge, polyps, wall thickening or pericholecystic fluid. COMMON BILE DUCT: Normal in caliber measuring 0.4 cm in diameter. RIGHT KIDNEY: Normal. No hydronephrosis. No renal calculi or focal parenchymal lesions. The kidney measures 11.1 cm in maximum dimension. LEFT KIDNEY: Normal. No hydronephrosis. No renal calculi or focal parenchymal lesions. The kidney measures 11.3 cm in maximum dimension. SPLEEN: Normal. The spleen measures 10.2 cm in maximum dimension. FREE FLUID: None. US/US abdomen comp w elastography IMPRESSION: 1. There is generalized increase in hepatic echotexture, consistent with fatty infiltration or hepatocellular disease. Please correlate clinically. No focal hepatic mass or intrahepatic biliary dilatation is seen. 2. Liver elastography: Although measurements appear to rule out compensated advanced chronic liver disease, there is statistical variability of the sampling which decreases accuracy. Assessment & Plan Assessment & Plan (1) Hepatitis C infection: Comment: Laboratory Tests 06/26/2403/16/24 09:3313:34 Estimated GFR > 60 Total Bilirubin 0.5 AST 131 H 65 H ALT 244 H 79 H Alkaline Phosphatase 54 Liver GGT 43 Liver Fibrosis Stage F1-F2 Hepatitis C Ab (EIA) Reactive H Hep C Viral Load [id number] H Hep C Viral Load Log 6.06 H Hepatitis C Genotype 2 HIV 1&2 Ab/P24 Ag 4thGn Nonreactive US ABD WITH ELASTOGRAPHY 09/07/23 (F-1) FINDINGS: PANCREAS: Normal. The visualized pancreatic head and body are normal in appearance. The remainder of the pancreas is obscured from visualization by the overlying bowel gas. ABDOMINAL AORTA: The proximal, middle, and distal aortic segments are normal in caliber. INFERIOR VENA CAVA: Visualized portions are normal. LIVER: The liver demonstrates normal size, contour and increased echogenicity. No focal lesion or intrahepatic biliary duct dilatation. The right lobe measures 16.0 cm in length. The left lobe measures 9.3 cm in length. Portal flow is towards the liver (hepatopetal). Shear wave liver elastography median stiffness is 1.47 m/s (reference: normal median stiffness is 1.3 m/s or less). IQR/median stiffness to assess sampling precision is 0.26 (reference: good quality data set is IQR/median stiffness of 0.15 or less). GALLBLADDER: Normal. The gallbladder is physiologically distended without evidence of stones, sludge, polyps, wall thickening or pericholecystic fluid. COMMON BILE DUCT: Normal in caliber measuring 0.4 cm in diameter. RIGHT KIDNEY: Normal. No hydronephrosis. No renal calculi or focal parenchymal lesions. The kidney measures 11.1 cm in maximum dimension. LEFT KIDNEY: Normal. No hydronephrosis. No renal calculi or focal parenchymal lesions. The kidney measures 11.3 cm in maximum dimension. SPLEEN: Normal. The spleen measures 10.2 cm in maximum dimension. FREE FLUID: None. US/US abdomen comp w elastography IMPRESSION: 1. There is generalized increase in hepatic echotexture, consistent with fatty infiltration or hepatocellular disease. Please correlate clinically. No focal hepatic mass or intrahepatic biliary dilatation is seen. 2. Liver elastography: Although measurements appear to rule out compensated advanced chronic liver disease, there is statistical variability of the sampling which decreases accuracy. Code(s): B19.20 - Unspecified viral hepatitis C without hepatic coma Category: Medical Plan He already started the epclusa on 09/05 as a start date. So far he is tolerating it without any side effects. We review dosing, what to do if he misses doses, and most common side effects so that he can be prepared. If he has any problems should contact our office. He is aware that he needs to isolate the omeprazole away from the Epclusa to promote maximum efficacy of the medication. At this point will do a return office visit the week of 10/15 and go over his lab work at that point Orders: Orders Liver Panel 10/07/23 B19.20 - Unspecified viral hepatitis C without hepatic coma Coding Level of Care Code Est Pt Level 3 (03548) Diagnoses Hepatitis C infection B19.20
[2023-09-12 08:42] VITALS: BP 137/59; PULSE 65; BMI 27.6
== END 2023-09-12 09:13 | disposition home or self-care (01) ==
PROVIDERS: PCP Internal Medicine Medical Oncology; Visit Provider Nurse Practitioner
DX: B19.20 Unspecified viral hepatitis C without hepatic coma (principal)
CPT/HCPCS: 99213

== ENCOUNTER → 2023-09-12 08:36 | Outpatient (BNVA) | payer BC, SELFPAY | PROVIDERS: PCP Internal Medicine Medical Oncology; Visit Provider Nurse Practitioner ==

== ENCOUNTER 2023-10-07 09:42 | Outpatient (REF) | payer BC, SELFPAY ==
[2023-10-07 10:47] LABS: Alanine Aminotransferase 22 U/L (0-40); Albumin Level 4.1 g/dL (3.5-5.0); Alkaline Phosphatase 42 U/L (39-117); Aspartate Amino Transferase 29 U/L (5-37); Bilirubin Direct 0.2 mg/dL (0.0-0.5); Bilirubin Total 0.6 mg/dL (0.0-1.0); Total Protein 7.6 g/dL (6.5-8.0)
== END 2023-10-07 09:43 | disposition home or self-care (01) ==
LOC: HO.LAB 09:42
PROVIDERS: PCP Internal Medicine Medical Oncology; Visit Provider Nurse Practitioner
DX: B19.20 Unspecified viral hepatitis C without hepatic coma (principal)
CPT/HCPCS: 36415; 80076

== ENCOUNTER 2023-10-17 12:17 | Outpatient (REF) | payer BC, SELFPAY ==
[2023-10-18 17:03] LABS: HCV Log PCR <1.18 NOT DETECTED Log IU/mL (NOT DETECTED); HepC Viral Load <15 NOT DETECTED IU/mL (NOT DETECTED)
== END 2023-10-17 12:18 | disposition home or self-care (01) ==
LOC: HO.LAB 12:17
PROVIDERS: PCP Internal Medicine Medical Oncology; Visit Provider Nurse Practitioner
DX: B19.20 Unspecified viral hepatitis C without hepatic coma (principal)
CPT/HCPCS: 36415; 87522

== ENCOUNTER 2023-10-17 12:17 | Outpatient (AMB) | payer BC, SELFPAY ==
--- NOTE | 2023-10-17 12:23 | A.OFFVIS_ITS ---
Vital Signs 10/17/23 12:30 Height 5 ft 7 in Weight 164 lb 0.383 oz BMI 25.7 BP 132/72 Blood Pressure Location Lt brachial Position Sitting Pulse 64 Intake Visit Reasons: 6 week f/u Hep C Intake Note: Sukhjinder returns to in office 6 weeks follow up of Hep C and labs. CC: Patient states that he is doing well and denies having any GI concerns today. Level Vial Setter Required: No Accompanied by: Self / Same As Patient Allergies No Known Allergies Allergy (Verified 10/17/23 12:33) HPI HPI 6 week f/u Hep C: Details: Assessment & Plan (1) Hepatitis C infection: Comment: Laboratory Tests 06/26/2403/16/24 09:3313:34 Estimated GFR > 60 Total Bilirubin 0.5 AST 131 H 65 H ALT 244 H 79 H Alkaline Phosphatase 54 Liver GGT 43 Liver Fibrosis Stage F1-F2 Hepatitis C Ab (EIA) Reactive H Hep C Viral Load 8599849 H Hep C Viral Load Log 6.06 H Hepatitis C Genotype 2 HIV 1&2 Ab/P24 Ag 4thGn Nonreactive US ABD WITH ELASTOGRAPHY 09/07/23 (F-1) FINDINGS: PANCREAS: Normal. The visualized pancreatic head and body are normal in appearance. The remainder of the pancreas is obscured from visualization by the overlying bowel gas. ABDOMINAL AORTA: The proximal, middle, and distal aortic segments are normal in caliber. INFERIOR VENA CAVA: Visualized portions are normal. LIVER: The liver demonstrates normal size, contour and increased echogenicity. No focal lesion or intrahepatic biliary duct dilatation. The right lobe measures 16.0 cm in length. The left lobe measures 9.3 cm in length. Portal flow is towards the liver (hepatopetal). Shear wave liver elastography median stiffness is 1.47 m/s (reference: normal median stiffness is 1.3 m/s or less). IQR/median stiffness to assess sampling precision is 0.26 (reference: good quality data set is IQR/median stiffness of 0.15 or less). GALLBLADDER: Normal. The gallbladder is physiologically distended without evidence of stones, sludge, polyps, wall thickening or pericholecystic fluid. COMMON BILE DUCT: Normal in caliber measuring 0.4 cm in diameter. RIGHT KIDNEY: Normal. No hydronephrosis. No renal calculi or focal parenchymal lesions. The kidney measures 11.1 cm in maximum dimension. LEFT KIDNEY: Normal. No hydronephrosis. No renal calculi or focal parenchymal lesions. The kidney measures 11.3 cm in maximum dimension. SPLEEN: Normal. The spleen measures 10.2 cm in maximum dimension. FREE FLUID: None. US/US abdomen comp w elastography IMPRESSION: 1. There is generalized increase in hepatic echotexture, consistent with fatty infiltration or hepatocellular disease. Please correlate clinically. No focal hepatic mass or intrahepatic biliary dilatation is seen. 2. Liver elastography: Although measurements appear to rule out compensated advanced chronic liver disease, there is statistical variability of the sampling which decreases accuracy. Code(s): B19.20 - Unspecified viral hepatitis C without hepatic coma Category: Medical Plan He already started the epclusa on 09/05 as a start date. So far he is tolerating it without any side effects. We review dosing, what to do if he misses doses, and most common side effects so that he can be prepared. If he has any problems should contact our office. He is aware that he needs to isolate the omeprazole away from the Epclusa to promote maximum efficacy of the medication. At this point will do a return office visit the week of 10/15 and go over his lab work at that point Orders: Orders Liver Panel 10/07/23 B19.20 - Unspecified viral hepatitis C without hepatic coma Laboratory Tests 06/26/23 08/15/23 10/07/23 09:33 13:34 09:51 Total Bilirubin 0.6 Direct Bilirubin 0.2 AST 131 H 65 H 29 ALT 244 H 79 H 22 Alkaline Phosphatase 42 TODAY'S VISIT He is 1/2 way through his Hep C tx. He feels well w/o s/e. Discuss drop of liver enzymes which is encouraging. He also has lost a lot of weight r/t intentional dieting which was recommended by his PCP, he is eating more fruits and veggies and less meat. He is willing to go for Hep C viral load. ROV 7 weeks. [facility] Medical History Hx of malignant neoplasm of colon GERD (gastroesophageal reflux disease) Irritable bowel syndrome with diarrhea History of basal cell carcinoma High cholesterol Surgical History History of esophagogastroduodenoscopy (EGD) Hx of colonoscopy No pertinent past surgical history Family History Mother Lung cancer Social History Household Members: Spouse Housing: House Are you a primary career services officer to a significant other at home: Yes Do you presently have visiting nurse or other home services: No Patient Tobacco Use Status: Former Tobacco user service: No Current occupational status: employed 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 Review of Systems Const Denies fatigue, Denies fever(s), Denies night sweats, Denies poor appetite and Reports weight loss Eyes Details: Glasses Reports requires corrective lenses ENT Reports Normal hearing present, Denies dental pain, Denies dysphagia, Denies hearing loss, Denies mouth pain, Denies odynophagia, Denies throat swelling, Denies tongue swelling and Reports other (Dentition adequate) Card Reports no additional complaints Resp Reports no additional complaints GI Details: Denies abdominal pain, Denies melena, Denies bloating, Denies hematochezia, Denies constipation, Denies GI cramping, Denies dysphagia, Denies excessive flatus, Denies early satiety, Reports heartburn, Denies diarrhea, Denies nausea, Denies odynophagia, Denies vomiting and Denies hematemesis Skin/Breast Denies pruritus, Denies lesions, Denies rash and Denies jaundice Neuro Reports Normal hearing present and Denies Abnormal speech present Endo Denies fatigue Aller/Immun Denies throat swelling and Denies tongue swelling Physical Exam Vital Signs: Last Vital Signs Pulse 64 10/17/23 12:30 BP 132/72 10/17/23 12:30 BMI result Body Mass Index 25.7 Const General: cooperative, no acute distress, well developed and well groomed Nutritional Appearance: average body habitus and well nourished Orientation/consciousness: oriented to person, oriented to place and oriented to time Limitations: No language barrier HEENT Head: Yes normocephalic and Yes atraumatic Eyes General: appearance normal, both eyes and all related structures Pupils: Equal, round and reactive pupils present Neck Neck: Yes normal visual inspection and Yes no lymphadenopathy Thyroid: Thyroid normal Resp Effort & Inspection: normal respiratory effort and able to speak in complete sentences Auscultation: clear to auscultation bilaterally Cardio Rate: regular rate Rhythm: regular rhythm Heart sounds: Normal, physiologic split S2 sound present Peripheral pulses: radial pulses present and posterior tibial pulses present GI Inspection: No distended and No Abdominal panniculus present Palpation (GI): Soft to palpation, nontender, no guarding, not rigid and No hepatosplenomegaly present Percussion: Yes normal to percussion Auscultation: normal bowel sounds Rectal Exam - Male: Yes deferred Skin General skin exam: no rashes or lesions noted, turgor normal, skin not dry, no jaundice, No spider nevi and no striae Rashes: no rashes Nails: normal Neuro General: oriented to person, oriented to place and oriented to time Cranial nerves: Yes Equal, round and reactive pupils present and Yes Normal hearing present Speech: No Abnormal speech present Extrem General: Yes normal to inspection, No clubbing, No cyanosis and No edema Psych Appearance: grossly normal and well kempt Mental Status: mental status grossly normal Speech and movement: Normal speech and movement present Affect: normal affect Attitude: cooperative Thought process: Normal thought process present and not confabulating Thought content: Normal thought content present Insight: Fair insight present (Psych) Judgement: Fair judgement present (Psych) Assessment & Plan Assessment & Plan (1) Hepatitis C infection: Comment: Laboratory Tests 06/26/2403/16/24 09:3313:34 Estimated GFR > 60 Total Bilirubin 0.5 AST 131 H 65 H ALT 244 H 79 H Alkaline Phosphatase 54 Liver GGT 43 Liver Fibrosis Stage F1-F2 Hepatitis C Ab (EIA) Reactive H Hep C Viral Load 4499382 H Hep C Viral Load Log 6.06 H Hepatitis C Genotype 2 HIV 1&2 Ab/P24 Ag 4thGn Nonreactive US ABD WITH ELASTOGRAPHY 09/07/23 (F-1) FINDINGS: PANCREAS: Normal. The visualized pancreatic head and body are normal in appearance. The remainder of the pancreas is obscured from visualization by the overlying bowel gas. ABDOMINAL AORTA: The proximal, middle, and distal aortic segments are normal in caliber. INFERIOR VENA CAVA: Visualized portions are normal. LIVER: The liver demonstrates normal size, contour and increased echogenicity. No focal lesion or intrahepatic biliary duct dilatation. The right lobe measures 16.0 cm in length. The left lobe measures 9.3 cm in length. Portal flow is towards the liver (hepatopetal). Shear wave liver elastography median stiffness is 1.47 m/s (reference: normal median stiffness is 1.3 m/s or less). IQR/median stiffness to assess sampling precision is 0.26 (reference: good quality data set is IQR/median stiffness of 0.15 or less). GALLBLADDER: Normal. The gallbladder is physiologically distended without evidence of stones, sludge, polyps, wall thickening or pericholecystic fluid. COMMON BILE DUCT: Normal in caliber measuring 0.4 cm in diameter. RIGHT KIDNEY: Normal. No hydronephrosis. No renal calculi or focal parenchymal lesions. The kidney measures 11.1 cm in maximum dimension. LEFT KIDNEY: Normal. No hydronephrosis. No renal calculi or focal parenchymal lesions. The kidney measures 11.3 cm in maximum dimension. SPLEEN: Normal. The spleen measures 10.2 cm in maximum dimension. FREE FLUID: None. US/US abdomen comp w elastography IMPRESSION: 1. There is generalized increase in hepatic echotexture, consistent with fatty infiltration or hepatocellular disease. Please correlate clinically. No focal hepatic mass or intrahepatic biliary dilatation is seen. 2. Liver elastography: Although measurements appear to rule out compensated advanced chronic liver disease, there is statistical variability of the sampling which decreases accuracy. Code(s): B19.20 - Unspecified viral hepatitis C without hepatic coma Category: Medical Plan He is 1/[address] through his Hep C tx. He feels well w/o s/e. Discuss drop of liver enzymes which is encouraging. He also has lost a lot of weight r/t intentional dieting which was recommended by his PCP, he is eating more fruits and veggies and less meat. He is willing to go for Hep C viral load. ROV 7 weeks. His beginning treatment date was 09/06/2023. Orders: Orders Liver Panel 11/28/23 B19.20 - Unspecified viral hepatitis C without hepatic coma Hepatitis C Viral Load 11/28/23 B19.20 - Unspecified viral hepatitis C without hepatic coma Hepatitis C Viral Load Today B19.20 - Unspecified viral hepatitis C without hepatic coma Coding Level of Care Code Est Pt Level 3 (37049) Diagnoses Hepatitis C infection B19.20
[2023-10-17 12:30] VITALS: BP 132/72; PULSE 64; BMI 25.7
== END 2023-10-17 12:59 | disposition home or self-care (01) ==
PROVIDERS: PCP Internal Medicine Medical Oncology; Visit Provider Nurse Practitioner
DX: B19.20 Unspecified viral hepatitis C without hepatic coma (principal)
CPT/HCPCS: 99213

== ENCOUNTER 2023-11-28 09:12 | Outpatient (REF) | payer BC, SELFPAY ==
[2023-11-28 10:43] LABS: Alanine Aminotransferase 18 U/L (0-40); Albumin Level 4.1 g/dL (3.5-5.0); Alkaline Phosphatase 55 U/L (39-117); Aspartate Amino Transferase 24 U/L (5-37); Bilirubin Direct 0.1 mg/dL (0.0-0.5); Bilirubin Total 0.3 mg/dL (0.0-1.0); Total Protein 7.6 g/dL (6.5-8.0)
[2023-11-30 15:18] LABS: HCV Log PCR <1.18 NOT DETECTED Log IU/mL (NOT DETECTED); HepC Viral Load <15 NOT DETECTED IU/mL (NOT DETECTED)
== END 2023-11-28 09:13 | disposition home or self-care (01) ==
LOC: HO.LAB 09:12
PROVIDERS: PCP Internal Medicine Medical Oncology; Visit Provider Nurse Practitioner
DX: B19.20 Unspecified viral hepatitis C without hepatic coma (principal)
CPT/HCPCS: 36415; 80076; 87522

== ENCOUNTER 2023-12-05 13:20 | Outpatient (AMB) | payer BC, SELFPAY ==
[2023-12-05 13:32] VITALS: BP 128/71; PULSE 54; BMI 24.9
--- NOTE | 2023-12-05 13:32 | A.OFFVIS_ITS ---
Vital Signs 12/05/23 13:32 Height 5 ft 7 in Weight 159 lb 2.78 oz BMI 24.9 BP 128/71 Blood Pressure Location Lt brachial Position Sitting Pulse 54 Intake Visit Reasons: 7 week f/u Intake Note: Sukhjinder returns to in office follow up of Hep C and labs. CC: Patient reports doing well and denies having any new GI symptoms or concerns. Pedicab Driver Required: No Accompanied by: Self / Same As Patient Allergies No Known Allergies Allergy (Verified 12/05/23 13:37) HPI HPI 7 week f/u: Details: Assessment & Plan (1) Hepatitis C infection: Comment: Laboratory Tests 06/26/2403/16/24 09:3313:34 Estimated GFR > 60 Total Bilirubin 0.5 AST 131 H 65 H ALT 244 H 79 H Alkaline Phosphatase 54 Liver GGT 43 Liver Fibrosis Stage F1-F2 Hepatitis C Ab (EIA) Reactive H Hep C Viral Load 2947445 H Hep C Viral Load Log 6.06 H Hepatitis C Genotype 2 HIV 1&2 Ab/P24 Ag 4thGn Nonreactive US ABD WITH ELASTOGRAPHY 09/07/23 (F-1) FINDINGS: PANCREAS: Normal. The visualized pancreatic head and body are normal in appearance. The remainder of the pancreas is obscured from visualization by the overlying bowel gas. ABDOMINAL AORTA: The proximal, middle, and distal aortic segments are normal in caliber. INFERIOR VENA CAVA: Visualized portions are normal. LIVER: The liver demonstrates normal size, contour and increased echogenicity. No focal lesion or intrahepatic biliary duct dilatation. The right lobe measures 16.0 cm in length. The left lobe measures 9.3 cm in length. Portal flow is towards the liver (hepatopetal). Shear wave liver elastography median stiffness is 1.47 m/s (reference: normal median stiffness is 1.3 m/s or less). IQR/median stiffness to assess sampling precision is 0.26 (reference: good quality data set is IQR/median stiffness of 0.15 or less). GALLBLADDER: Normal. The gallbladder is physiologically distended without evidence of stones, sludge, polyps, wall thickening or pericholecystic fluid. COMMON BILE DUCT: Normal in caliber measuring 0.4 cm in diameter. RIGHT KIDNEY: Normal. No hydronephrosis. No renal calculi or focal parenchymal lesions. The kidney measures 11.1 cm in maximum dimension. LEFT KIDNEY: Normal. No hydronephrosis. No renal calculi or focal parenchymal lesions. The kidney measures 11.3 cm in maximum dimension. SPLEEN: Normal. The spleen measures 10.2 cm in maximum dimension. FREE FLUID: None. US/US abdomen comp w elastography IMPRESSION: 1. There is generalized increase in hepatic echotexture, consistent with fatty infiltration or hepatocellular disease. Please correlate clinically. No focal hepatic mass or intrahepatic biliary dilatation is seen. 2. Liver elastography: Although measurements appear to rule out compensated advanced chronic liver disease, there is statistical variability of the sampling which decreases accuracy. Code(s): B19.20 - Unspecified viral hepatitis C without hepatic coma Category: Medical Plan He is 1/2 way through his Hep C tx. He feels well w/o s/e. Discuss drop of liver enzymes which is encouraging. He also has lost a lot of weight r/t intentional dieting which was recommended by his PCP, he is eating more fruits and veggies and less meat. He is willing to go for Hep C viral load. ROV 7 weeks. His beginning treatment date was 09/06/2023. Orders: Orders Liver Panel 11/28/23 B19.20 - Unspecified viral hepatitis C without hepatic coma Hepatitis C Viral Load 11/28/23 B19.20 - Unspecified viral hepatitis C without hepatic coma Hepatitis C Viral Load Today B19.20 - Unspecified viral hepatitis C without hepatic coma LABS: Laboratory Tests 11/28/23 09:19 Total Bilirubin 0.3 Direct Bilirubin 0.1 AST 24 ALT 18 Alkaline Phosphatase 55 Hep C Viral Load <15 NOT DETECTED Hep C Viral Load Log <1.18 NOT DETECTED TODAY'S VISIT HE is at [facility] and has so far sustained his viral remission. Will re check in 6 mos. [facility] Medical History Hx of malignant neoplasm of colon GERD (gastroesophageal reflux disease) Irritable bowel syndrome with diarrhea History of basal cell carcinoma High cholesterol Surgical History History of esophagogastroduodenoscopy (EGD) Hx of colonoscopy No pertinent past surgical history Family History Mother Lung cancer Social History Household Members: Spouse Housing: House Are you a primary pediatric critical care nurse to a significant other at home: Yes Do you presently have visiting nurse or other home services: No Patient Tobacco Use Status: Former Tobacco user service: No Current occupational status: employed 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 Review of Systems Const Denies fatigue, Denies fever(s), Denies night sweats, Denies poor appetite and D enies weight loss ENT Reports Normal hearing present, Denies dental pain, Denies dysphagia, Denies hearing loss, Denies mouth pain, Denies odynophagia, Denies throat swelling, Denies tongue swelling and Reports other (Dentition adequate) Card Reports no additional complaints Resp Reports no additional complaints GI Details: Denies abdominal pain, Denies melena, Denies bloating, Denies hematochezia, Denies constipation, Denies GI cramping, Denies dysphagia, Denies excessive flatus, Denies early satiety, Denies heartburn, Denies diarrhea, Denies nausea, Denies odynophagia, Denies vomiting and Denies hematemesis Skin/Breast Denies pruritus, Denies lesions, Denies rash and Denies jaundice Neuro Reports Normal hearing present and Denies Abnormal speech present Endo Denies fatigue Aller/Immun Denies throat swelling and Denies tongue swelling Physical Exam Vital Signs: Last Vital Signs Pulse 54 12/05/23 13:32 BP 128/71 12/05/23 13:32 BMI result Body Mass Index 24.9 Const General: cooperative, no acute distress, well developed and well groomed Nutritional Appearance: well nourished and thin Orientation/consciousness: oriented to person, oriented to place and oriented to time Limitations: No language barrier HEENT Head: Yes normocephalic and Yes atraumatic Eyes General: appearance normal, both eyes and all related structures Pupils: Equal, round and reactive pupils present Neck Neck: Yes normal visual inspection and Yes no lymphadenopathy Thyroid: Thyroid normal Resp Effort & Inspection: normal respiratory effort and able to speak in complete sentences Auscultation: clear to auscultation bilaterally Cardio Rate: regular rate Rhythm: regular rhythm Heart sounds: Normal, physiologic split S2 sound present Peripheral pulses: radial pulses present and posterior tibial pulses present GI Inspection: No distended and No Abdominal panniculus present Palpation (GI): Soft to palpation, nontender, no guarding, not rigid and No hepatosplenomegaly present Percussion: Yes normal to percussion Auscultation: normal bowel sounds Rectal Exam - Male: Yes deferred Skin General skin exam: no rashes or lesions noted, turgor normal, skin not dry, no jaundice, No spider nevi and no striae Rashes: no rashes Nails: normal Neuro General: oriented to person, oriented to place and oriented to time Cranial nerves: Yes Equal, round and reactive pupils present and Yes Normal hearing present Speech: No Abnormal speech present Extrem General: Yes normal to inspection, No clubbing, No cyanosis and No edema Psych Appearance: grossly normal and well kempt Mental Status: mental status grossly normal Speech and movement: Normal speech and movement present Affect: normal affect Attitude: cooperative Thought process: Normal thought process present and not confabulating Thought content: Normal thought content present Insight: Limited insight present (Psych) Judgement: Limited judgement present (Psych) Results Reviewed Results Reviewed: Laboratory Tests 11/28/23 09:19 Total Bilirubin 0.3 Direct Bilirubin 0.1 AST 24 ALT 18 Alkaline Phosphatase 55 Hep C Viral Load <15 NOT DETECTED Hep C Viral Load Log <1.18 NOT DETECTED Assessment & Plan Assessment & Plan (1) Hepatitis C infection: Comment: Laboratory Tests 06/26/2403/16/24 09:3313:34 Estimated GFR > 60 Total Bilirubin 0.5 AST 131 H 65 H ALT 244 H 79 H Alkaline Phosphatase 54 Liver GGT 43 Liver Fibrosis Stage F1-F2 Hepatitis C Ab (EIA) Reactive H Hep C Viral Load [id number] H Hep C Viral Load Log 6.06 H Hepatitis C Genotype 2 HIV 1&2 Ab/P24 Ag 4thGn Nonreactive US ABD WITH ELASTOGRAPHY 09/07/23 (F-1) FINDINGS: PANCREAS: Normal. The visualized pancreatic head and body are normal in appearance. The remainder of the pancreas is obscured from visualization by the overlying bowel gas. ABDOMINAL AORTA: The proximal, middle, and distal aortic segments are normal in caliber. INFERIOR VENA CAVA: Visualized portions are normal. LIVER: The liver demonstrates normal size, contour and increased echogenicity. No focal lesion or intrahepatic biliary duct dilatation. The right lobe measures 16.0 cm in length. The left lobe measures 9.3 cm in length. Portal flow is towards the liver (hepatopetal). Shear wave liver elastography median stiffness is 1.47 m/s (reference: normal median stiffness is 1.3 m/s or less). IQR/median stiffness to assess sampling precision is 0.26 (reference: good quality data set is IQR/median stiffness of 0.15 or less). GALLBLADDER: Normal. The gallbladder is physiologically distended without evidence of stones, sludge, polyps, wall thickening or pericholecystic fluid. COMMON BILE DUCT: Normal in caliber measuring 0.4 cm in diameter. RIGHT KIDNEY: Normal. No hydronephrosis. No renal calculi or focal parenchymal lesions. The kidney measures 11.1 cm in maximum dimension. LEFT KIDNEY: Normal. No hydronephrosis. No renal calculi or focal parenchymal lesions. The kidney measures 11.3 cm in maximum dimension. SPLEEN: Normal. The spleen measures 10.2 cm in maximum dimension. FREE FLUID: None. US/US abdomen comp w elastography IMPRESSION: 1. There is generalized increase in hepatic echotexture, consistent with fatty infiltration or hepatocellular disease. Please correlate clinically. No focal hepatic mass or intrahepatic biliary dilatation is seen. 2. Liver elastography: Although measurements appear to rule out compensated advanced chronic liver disease, there is statistical variability of the sampling which decreases accuracy. Code(s): B19.20 - Unspecified viral hepatitis C without hepatic coma Category: Medical Plan HE is at [facility] and has so far sustained his viral remission. Will re check in 6 mos. Orders: Orders Hepatitis C Viral Load 06/03/24 B19.20 - Unspecified viral hepatitis C without hepatic coma Liver Panel 06/03/24 B19.20 - Unspecified viral hepatitis C without hepatic coma Coding Level of Care Code Est Pt Level 3 (02752) Diagnoses Hepatitis C infection B19.20
== END 2023-12-05 14:09 | disposition home or self-care (01) ==
PROVIDERS: PCP Internal Medicine Medical Oncology; Visit Provider Nurse Practitioner
DX: B19.20 Unspecified viral hepatitis C without hepatic coma (principal)
CPT/HCPCS: 99213

== ENCOUNTER → 2023-12-05 13:20 | Outpatient (BNVA) | payer BC, SELFPAY | PROVIDERS: PCP Internal Medicine Medical Oncology; Visit Provider Nurse Practitioner ==

== ENCOUNTER 2024-02-19 08:44 | Outpatient (REF) | payer BC, SELFPAY ==
[2024-02-19 10:42] LABS: MANUAL DIFF FLAG NO
[2024-02-19 10:51] LABS: Basophils Absolute Auto 0.1 X10*3/uL (0.0-0.2); Eosinophils Absolute Auto 0.3 X10*3/uL (0.0-0.4); Eosinophils Percent Auto 4.3 % (0-4); Hematocrit 41.3 % (42.0-52.0); Imm Gran Abs Auto 0.01 X10*3/uL (0.00-0.03); Imm Gran Pct Auto 0.2 % (0.0-0.4); Lymphocytes Absolute Auto 3.2 X10*3/uL (1.2-4.9); Lymphocytes Percent Auto 53.4 % (20-40); Mean Corpuscular HGB Conc 33.9 g/dl (31.0-36.0); Mean Corpuscular Hemoglobin 31.4 pg (27.0-33.0); Mean Corpuscular Volume 92.6 fL (80.0-98.0); Mean Platelet Volume 10.4 fL (9.4-12.4); Monocytes Absolute Auto 0.6 X10*3/uL (0.1-1.2); Monocytes Percent Auto 9.8 % (2-11); Neutrophils Absolute Auto 1.9 x10*3/uL (2.0-8.3); Neutrophils Percent Auto 31.3 % (45-73); Platelet Count 153 X10*3/uL (160-400); Red Blood Count 4.46 X10*6/uL (4.60-5.80); Red Cell Distribution Width 12.7 % (11.0-16.0)
[2024-02-19 11:22] LABS: Alanine Aminotransferase 23 U/L (0-40); Albumin Level 4.2 g/dL (3.5-5.0); Alkaline Phosphatase 54 U/L (39-117); Anion Gap 11 (12-20); Aspartate Amino Transferase 34 U/L (5-37); Bilirubin Total 0.7 mg/dL (0.0-1.0); Blood Urea Nitrogen 17 mg/dL (9-16); Carbon Dioxide 30 mmol/L (22-29); Chloride 104 mmol/L (96-108); Cholesterol 184 mg/dL (<200); Estimated Glomerular Filt Rate > 60; Glucose Fasting 95 mg/dL (60-99); HDL Cholesterol 43 mg/dL (>40); LDL Cholesterol Calculated 124 mg/dL (<100); Potassium 4.2 mmol/L (3.3-5.1); Sodium 141 mmol/L (135-145); Total Protein 7.6 g/dL (6.5-8.0); Triglycerides 87 mg/dL (<150)
[2024-02-19 11:39] LABS: Prostate Specific Antigen 1.87 ng/mL (<0.05-4.0)
== END 2024-02-19 08:45 | disposition home or self-care (01) ==
LOC: HO.10HDL 08:44
PROVIDERS: Visit Provider Internal Medicine Medical Oncology
DX: Z12.5 Encounter for screening for malignant neoplasm of prostate (principal); E66.3 Overweight; N40.0 Benign prostatic hyperplasia without lower urinary tract symptoms; K75.9 Inflammatory liver disease, unspecified
CPT/HCPCS: 36415; 80053; 80061; 84153; 85025

== ENCOUNTER 2024-08-24 08:59 | Outpatient (REF) | payer BC, SELFPAY ==
[2024-08-24 09:10] LABS: MANUAL DIFF FLAG NO
[2024-08-24 10:21] LABS: Basophils Absolute Auto 0.1 X10*3/uL (0.0-0.2); Eosinophils Absolute Auto 0.4 X10*3/uL (0.0-0.4); Hematocrit 43.4 % (42.0-52.0); Hemoglobin 14.7 g/dl (14.0-18.0); Imm Gran Abs Auto 0.01 X10*3/uL (0.00-0.03); Imm Gran Pct Auto 0.2 % (0.0-0.4); Lymphocytes Absolute Auto 3.1 X10*3/uL (1.2-4.9); Lymphocytes Percent Auto 51.5 % (20-40); Mean Corpuscular HGB Conc 33.9 g/dl (31.0-36.0); Mean Corpuscular Hemoglobin 31.5 pg (27.0-33.0); Mean Corpuscular Volume 92.9 fL (80.0-98.0); Mean Platelet Volume 10.1 fL (9.4-12.4); Monocytes Absolute Auto 0.5 X10*3/uL (0.1-1.2); Monocytes Percent Auto 8.5 % (2-11); Neutrophils Percent Auto 32.8 % (45-73); Platelet Count 172 X10*3/uL (160-400); Red Blood Count 4.67 X10*6/uL (4.60-5.80); Red Cell Distribution Width 12.6 % (11.0-16.0)
[2024-08-24 11:03] LABS: Alanine Aminotransferase 22 U/L (0-40); Albumin Level 4.2 g/dL (3.5-5.0); Alkaline Phosphatase 44 U/L (39-117); Anion Gap 8 (12-20); Aspartate Amino Transferase 30 U/L (5-37); Bilirubin Total 0.6 mg/dL (0.0-1.0); Blood Urea Nitrogen 14 mg/dL (9-16); Calcium 9.6 mg/dL (8.4-10.2); Carbon Dioxide 31 mmol/L (22-29); Chloride 104 mmol/L (96-108); Cholesterol 200 mg/dL (<200); Estimated Glomerular Filt Rate > 60; Glucose Fasting 81 mg/dL (60-99); HDL Cholesterol 44 mg/dL (>40); LDL Cholesterol Calculated 135 mg/dL (<100); Potassium 4.4 mmol/L (3.3-5.1); Sodium 139 mmol/L (135-145); Total Protein 7.6 g/dL (6.5-8.0); Triglycerides 105 mg/dL (<150)
== END 2024-08-24 09:00 | disposition home or self-care (01) ==
LOC: HO.LAB 08:59
PROVIDERS: PCP Internal Medicine Medical Oncology; Visit Provider Internal Medicine Medical Oncology
DX: Z13.220 Encounter for screening for lipoid disorders (principal); Z13.0 Encounter for screening for diseases of the blood and blood-forming organs and certain disorders involving the immune mechanism; Z13.9 Encounter for screening, unspecified
CPT/HCPCS: 36415; 80053; 80061; 85025

== ENCOUNTER 2024-08-31 09:18 | Outpatient (REF) | payer BC, SELFPAY ==
--- OUTSIDE RECORDS SUMMARY | 2024-08-31 09:21 | XMS_ITS | Patient Health Record ---
Author Organization Jeovany Pineda III, MD Address [address] [place] [address] Care Team Providers Care Neurology Tech Name Role Phone Jeovany Pineda Primary Care Provider Allergies Allergen (clinical drug [...] 0.2 - 1.3 BLD Negative Negative - US abdomen comp w elastograp hy Reviewed date:09/10/2023 07:25:40 AM Interpretation: Performing Lab: Notes/Report: [address] [address] Ultrasound Report Signed Patient: Sukhjinder Rodríguez MR#: [id number] 1 : 1965 Acct:[id number] Age/Sex: 58 / M ADM Date: 09/04/23 Loc: HO.US Attending Dr: Lashae OLIVEIRA Ordering Physician: Lashae Kohler Date of Service: 09/04/23 Procedure(s): US abdomen comp w elastography Accession Number(s): [id number] cc: Lashae Kohler; Jeovany Pineda MD EXAMINATION: US COMPLETE ABDOMEN WITH LIVER ELASTOGRAPHY CLINICAL INFORMATION: Hepatitis C. COMPARISON: Abdominal ultrasound dated 03/22/2021. TECHNIQUE: Real-time imaging of the abdominal viscera. Noninvasive ultrasound liver fibrosis assessment is performed using Divina ElastPQ point quantification shear wave elastography (2D-SWE) with a C5-2 MHz transducer. Multiple elastography samples are obtained. FINDINGS: PANCREAS: Normal. The visualized pancreatic head and body are normal in appearance. The remainder of the pancreas is obscured from visualization by the overlying bowel gas. ABDOMINAL AORTA: The proximal, middle, and distal aortic segments are normal in caliber. INFERIOR VENA CAVA: Visualized portions are normal. LIVER: The liver demonstrates normal size, contour and increased echogenicity. No focal lesion or intrahepatic biliary duct dilatation. The right lobe measures 16.0 cm in length. The left lobe measures 9.3 cm in length. Portal flow is towards the liver (hepatopetal). Shear wave liver elastography median stiffness is 1.47 m/s (reference: normal median stiffness is 1.3 m/s or less). IQR/median stiffness to assess sampling precision is 0.26 (reference: good quality data set is IQR/median stiffness of 0.15 or less). GALLBLADDER: Normal. The gallbladder is physiologically distended without evidence of stones, sludge, polyps, wall thickening or pericholecystic fluid. COMMON BILE DUCT: Normal in caliber measuring 0.4 cm in diameter. RIGHT KIDNEY: Normal. No hydronephrosis. No renal calculi or focal parenchymal lesions. The kidney measures 11.1 cm in maximum dimension. LEFT KIDNEY: Normal. No hydronephrosis. No renal calculi or focal parenchymal lesions. The kidney measures 11.3 cm in maximum dimension. SPLEEN: Normal. The spleen measures 10.2 cm in maximum dimension. FREE FLUID: None. US/US abdomen comp w elastography IMPRESSION: 1. There is generalized increase in hepatic echotexture, consistent with fatty infiltration or hepatocellular disease. Please correlate clinically. No focal hepatic mass or intrahepatic biliary dilatation is seen. 2. Liver elastography: Although measurements appear to rule out compensated advanced chronic liver disease, there is statistical variability of the sampling which decreases accuracy. REFERENCE: Society of Radiologists in Ultrasound Liver Stiffness Thresholds (2020): LIVER STIFFNESS THRESHOLDS: *Liver Stiffness equal or less than 1.3 m/s: High probability of being normal. *Liver Stiffness less than 1.7 m/s: In the absence of other known clinical signs, rules out compensated advanced chronic liver disease. *Liver Stiffness 1.7-2.1 m/s: Suggestive of compensated advanced chronic liver disease but need further test for confirmation. *Liver Stiffness over 2.1 m/s: Rules in compensated advanced chronic liver disease. *Liver Stiffness over 2.4 m/s: Suggestive of clinically significant portal hypertension. QUALITY OF DATA SET: *IQR/Median value equal or less than 0.15 implies a quality data set. *IQR/Median value over 0.15 implies a poor quality data set. SIGNIFICANT CHANGE FROM PRIOR EXAM: Significant change if liver stiffness measurement is 10% or greater from prior exam. OTHER CONSIDERATIONS: The stage of liver fibrosis may be overestimated in the setting of acute hepatitis, liver inflammation, elevated liver function tests, hepatic vascular congestion, obstructive cholestasis, non-fasting state, and infiltrative diseases such as amyloidosis and lymphoma. In some patients with NAFLD, the liver stiffness thresholds for compensated advanced chronic liver disease may be lower. In causes other than viral hepatitis and NAFLD, liver stiffness thresholds are not well established. Dictated By: Owen Sorto MD Signed By: <Electronically signed by Owen Sorto MD in [place]> 09/07/23 1814 DD/ 0851 TD/TT: Balance Wheel Facer: [place] [address] Ultrasound Report Signed Patient: Sukhjinder Rodríguez MR#: [id number] 1 : 1965 Acct:[id number] Age/Sex: 58 / M ADM Date: 09/04/23 Loc: HO.US Attending Dr: Lashae OLIVEIRA Ordering Physician: Lashae Kohler Date of Service: 09/04/23 Procedure(s): US abdomen comp w elastography Accession Number(s): [id number] cc: Lashae Kohler; Jeovany Pineda MD EXAMINATION: US COMPLETE ABDOMEN WITH LIVER ELASTOGRAPHY CLINICAL INFORMATION: Hepatitis C. COMPARISON: Abdominal ultrasound dated 03/22/2021. TECHNIQUE: Real-time imaging of the abdominal viscera. Noninvasive ultrasound liver fibrosis assessment is performed using Divina ElastPQ point quantification shear wave elastography (2D-SWE) with a C5-2 MHz transducer. Multiple elastography samples are obtained. FINDINGS: PANCREAS: Normal. Th e visualized pancreatic head and body are normal in appearance. The remainder of the pancreas is obscured from visualization by the overlying bowel gas. ABDOMINAL AORTA: The proximal, middle, and distal aortic segments are normal in caliber. INFERIOR VENA CAVA: Visualized portions are normal. LIVER: The liver demonstrates normal size, contour and increased echogenicity. No foc al lesion or intrahepatic biliary duct dilatation. The right lobe measu res 16.0 cm in length. The left lobe measures 9.3 cm in length. Portal flow is towar ds the liver (hepatopetal). Shear wave liver elastography median stiffness is 1.47 m/s (reference: normal median stiffn ess is 1.3 m/s or less). IQR/median stiffness to assess sampling precision is 0.26 (reference: good quality data se t is IQR/median stiffness of 0.15 or less). GALLBLADDER: Normal. The gallbladder is physiologically distended without evidence of stones, sludge, polyps, wall thickening or pericholecystic fluid. COMMON BILE DUCT: Normal in caliber measuring 0.4 cm in diameter. RIGHT KIDNEY: Normal . No hydronephrosis. No renal calculi or focal parenchymal lesions. The kidney measures 11.1 cm in maximum dimension. LEFT KIDNEY: Normal. No hydronephrosis. No renal calculi or focal parenchymal lesions. The kidney measures 11.3 cm in maximum dimension. SPLEEN: Normal. The spleen measures 10.2 cm in maximum dimension. FREE FLUID: None. US/US abdomen comp w elastography IMPRESSION: 1. There is generali zed increase in hepatic echotexture, consistent with fatty infiltrat ion or hepatocellular disease. Please correlate clinically. No focal hepatic mass or intrahepatic biliary dilatation is seen. 2. Liver elastograph y: Although measurements appear to rule out compensated advanced chronic liver disease, there is statistical variability of the sampling which decreases accuracy. REFERENCE: Society of Radiologi sts in Ultrasound Liver Stiffness Thresholds (2019): LIVER STIFFNESS THRESHOLDS: *Liver Stiffness equ al or less than 1.3 m/s: High probability of being normal. *Liver Stiffness les s than 1.7 m/s: In the absence of other known clinical signs, rule s out compensated advanced chronic liver disease. *Liver Stiffness 1.7-2.1 m/s: Suggestive of compensated advanced chronic liver diseas e but need further test for confirmation. *Liver Stiffness ove r 2.1 m/s: Rules in compensated advanced chronic liver disease. *Liver Stiffness ove r 2.4 m/s: Suggestive of clinically significant portal hypertension. QUALITY OF DATA SET: *IQR/Median value eq ual or less than 0.15 implies a quality data set. *IQR/Median value ov er 0.15 implies a poor quality data set. SIGNIFICANT CHANGE F ROM PRIOR EXAM: Significant change i f liver stiffness measurement is 10% or greater from prior exam. OTHER CONSIDERATIONS: The stage of liver fibrosis may be overestimated in the setting of acute hepatitis, silvana er inflammation, elevated liver function tests, hepatic vascular congestion, obstructive cholestasis, non-fasting state, and infiltrat danica diseases such as amyloidosis and lymphoma. In some patients with NAFLD, the liver stiffness thresholds for compensated advanced chronic liver disease may be lower. In causes other than viral hepatitis and NAFLD, liver stiffness thresholds are not well established. Dictated By: Christi Sorto MD Signed By: <Electronically signed by Owen Sorto MD in OV> 09/07/234 DD/ 0851 TD/TT: Balance Wheel Facer: [facility] Liver Panel Reviewed date:10/08/2023 07:13:21 PM Interpretation: Performing Lab:[address] [address] Notes/Report: Bilirubin Total 0.6 0.0-1.0 mg/dL Bilirubin Direct 0.2 0.0-0.5 mg/dL Aspartate Amino Transferase 29 5-37 U/L Alanine Aminotransferase 22 0-40 U/L Total Protein 7.6 6.5-8.0 g/dL Albumin Level 4.1 3.5-5.0 g/dL Alkaline Phosphatase 42 39-117 U/L Hep C Viral Load Reviewed date:10/21/2023 05:54:09 PM Interpretation: Performing Lab:[address] [address] Notes/Report: HepC Viral Load <15 NOT DETECTED NOT DETECTED IU/mL HCV Log PCR <1.18 NOT DETECTED NOT DETECTED Log IU/mL For additional information, please refer to http://education.51hejia.com.IntheGlo/fa q/JQL34h7 (This link is being provided for informational/ educational purposes only.) THIS TEST WAS PERFORMED AT: [facility] [address] [place] [phone] RJ PALACIOS MD Liver Panel Reviewed date:12/03/2023 06:05:50 AM Interpretation: Performing Lab:[address] [address] Notes/Report: Bilirubin Total 0.3 0.0-1.0 mg/dL Bilirubin Direct 0.1 0.0-0.5 mg/dL Aspartate Amino Transferase 24 5-37 U/L Alanine Aminotransferase 18 0-40 U/L Total Protein 7.6 6.5-8.0 g/dL Albumin Level 4.1 3.5-5.0 g/dL Alkaline Phosphatase 55 39-117 U/L Hep C Viral Load Reviewed date:12/03/2023 06:05:50 AM Interpretation: Performing Lab:[address] [address] Notes/Report: HepC Viral Load <15 NOT DETECTED NOT DETECTED IU/mL HCV Log PCR <1.18 NOT DETECTED NOT DETECTED Log IU/mL For additional information, please refer to http://education.51hejia.com.IntheGlo/fa q/MXA68k1 (This link is being provided for informational/ educational purposes only.) THIS TEST WAS PERFORMED AT: [facility] [address] [place] [phone] RJ PALACIOS MD Complete Blood Count Auto Di ff Reviewed date:02/25/2024 06:34:28 AM Interpretation: Performing Lab:[address] [address] Notes/Report: White Blood Count 6.0 4.8-10.8 X10*3/uL Red Blood Count 4.46 4.60-5.80 X10*6/uL Hemoglobin 14.0 14.0-18.0 g/dl Hematocrit 41.3 42.0-52.0 % Mean Corpuscular Volume 92.6 80.0-98.0 fL Mean Corpuscular Hemoglobin 31.4 27.0-33.0 pg Mean Corpuscular HGB Conc 33.9 31.0-36.0 g/dl Red Cell Distribution Width 12.7 11.0-16.0 % Platelet Count 153 160-400 X10*3/uL Mean Platelet Volume 10.4 9.4-12.4 fL Neutrophils Percent Auto 31.3 45-73 % Imm Gran Pct Auto 0.2 0.0-0.4 % Lymphocytes Percent Auto 53.4 20-40 % Monocytes Percent Auto 9.8 2-11 % Eosinophils Percent Auto 4.3 0-4 % Basophils Percent Auto 1.0 0-2 % NRBC Pct Auto 0.0 0.0-0.2 /100WBC Neutrophils Absolute Auto 1.9 2.0-8.3 x10*3/u L Imm Gran Abs Auto 0.01 0.00-0.03 X10*3/uL Lymphocytes Absolute Auto 3.2 1.2-4.9 X10*3/u L Monocytes Absolute Auto 0.6 0.1-1.2 X10*3/uL Eosinophils Absolute Auto 0.3 0.0-0.4 X10*3/u L Basophils Absolute Auto 0.1 0.0-0.2 X10*3/uL NRBC Abs Auto 0.000 0.0-0.012 X10*3/uL Comprehensive [place]. Panel Fa st Reviewed date:02/25/2024 06:34:28 AM Interpretation: Performing Lab:[facility], [address] [place] [phone] Notes/Report: Sodium 141 135-145 mmol/L Potassium 4.2 3.3-5.1 mmol/L Chloride 104 96-108 mmol/L Carbon Dioxide 30 22-29 mmol/L Anion Gap 11 12-20 Blood Urea Nitrogen 17 9-16 mg/dL Creatinine 0.87 0.5-1.4 mg/dL Estimated Glomerular Filt Rate > 60 NOTE: For -[place]ij[place] individuals, multiply the result by 1.210. Chronic Kidney Disease: Estimated GFR < 60 mL/min/1.73m2 Severe Kidney Disease: Estimated GFR < 15 mL/min/1.73m2 Glucose Fasting 95 60-99 mg/dL Calcium 10.0 8.4-10.2 mg/dL Bilirubin Total 0.7 0.0-1.0 mg/dL Aspartate Amino Transferase 34 5-37 U/L Alanine Aminotransferase 23 0-40 U/L Total Protein 7.6 6.5-8.0 g/dL Albumin Level 4.2 3.5-5.0 g/dL Alkaline Phosphatase 54 39-117 U/L Lipid Panel Reviewed date:02/25/2024 06:34:28 AM Interpretation: Performing Lab:[address] [address] Notes/Report: Triglycerides 87 <150 mg/dL Desirable Triglyceride: less than 150 mg/dL Borderline High Triglyceride 150-199 mg/dL High Triglyceride: 200-499 mg/dL Very High Triglyceride: greater than or equal to 5OO mg/dL Cholesterol 184 <200 mg/dL Desirable Cholesterol: less than 200 mg/dL Borderline High Cholesterol: 200-239 mg/dL High Cholesterol: greater than 239 mg/dL LDL Cholesterol Calculated 124 <100 mg/dL Desirable LDL: less than 100 mg/dL Near Optimal/Above Optimal LDL: 110-129 mg/dL Borderline High LDL: 130-159 mg/dL High LDL: 160-189 mg/dL Very High LDL: greater than or equal to 190 mg/dL HDL Cholesterol 43 >40 mg/dL Desirable HDL: greater than 40 mg/dL Note: This HDL assay may give artificially low results in patients with liver disease. Prostate Specific Antigen Reviewed date:02/25/2024 06:34:28 AM Interpretation: Performing Lab:[address] [address] Notes/Report: Prostate Specific Antigen 1.87 <0.05-4.0 ng/mL PSA methodology: [place] Al[employer] i Chemiluminescent Microparticle Immunoassay (CMIA) Complete Blood Count Auto Di ff Reviewed date:08/26/2024 10:09:04 AM Interpretation: Performing Lab:[address] [address] Notes/Report: White Blood Count 6.0 4.8-10.8 X10*3/uL Red Blood Count 4.67 4.60-5.80 X10*6/uL Hemoglobin 14.7 14.0-18.0 g/dl Hematocrit 43.4 42.0-52.0 % Mean Corpuscular Volume 92.9 80.0-98.0 fL Mean Corpuscular Hemoglobin 31.5 27.0-33.0 pg Mean Corpuscular HGB Conc 33.9 31.0-36.0 g/dl Red Cell Distribution Width 12.6 11.0-16.0 % Platelet Count 172 160-400 X10*3/uL Mean Platelet Volume 10.1 9.4-12.4 fL Neutrophils Percent Auto 32.8 45-73 % Imm Gran Pct Auto 0.2 0.0-0.4 % Lymphocytes Percent Auto 51.5 20-40 % Monocytes Percent Auto 8.5 2-11 % Eosinophils Percent Auto 6.0 0-4 % Basophils Percent Auto 1.0 0-2 % NRBC Pct Auto 0.0 0.0-0.2 /100WBC Neutrophils Absolute Auto 2.0 2.0-8.3 x10*3/u L Imm Gran Abs Auto 0.01 0.00-0.03 X10*3/uL Lymphocytes Absolute Auto 3.1 1.2-4.9 X10*3/u L Monocytes Absolute Auto 0.5 0.1-1.2 X10*3/uL Eosinophils Absolute Auto 0.4 0.0-0.4 X10*3/u L Basophils Absolute Auto 0.1 0.0-0.2 X10*3/uL NRBC Abs Auto 0.000 0.0-0.012 X10*3/uL Comprehensive [place]. Panel Fa st Reviewed date:08/26/2024 10:09:04 AM Interpretation: Performing Lab:[facility], [address] [place] [address] Notes/Report: Sodium 139 135-145 mmol/L Potassium 4.4 3.3-5.1 mmol/L Chloride 104 96-108 mmol/L Carbon Dioxide 31 22-29 mmol/L Anion Gap 8 12-20 Blood Urea Nitrogen 14 9-16 mg/dL Creatinine 0.82 0.5-1.4 mg/dL Estimated Glomerular Filt Rate > 60 Chronic Kidney Disease: Estimated GFR < 60 mL/min/1.73m2 Severe Kidney Disease: Estimated GFR < 15 mL/min/1.73m2 Glucose Fasting 81 60-99 mg/dL Calcium 9.6 8.4-10.2 mg/dL Bilirubin Total 0.6 0.0-1.0 mg/dL Aspartate Amino Transferase 30 5-37 U/L Alanine Aminotransferase 22 0-40 U/L Total Protein 7.6 6.5-8.0 g/dL Albumin Level 4.2 3.5-5.0 g/dL Alkaline Phosphatase 44 39-117 U/L Lipid Panel Reviewed date:08/26/2024 10:09:04 AM Interpretation: Performing Lab:[facility], [address] [place] [address] Notes/Report: Triglycerides 105 <150 mg/dL Desirable Triglyceride: less than 150 mg/dL Borderline High Triglyceride 150-199 mg/dL High Triglyceride: 200-499 mg/dL Very High Triglyceride: greater than or equal to 5OO mg/dL Cholesterol 200 <200 mg/dL Desirable Cholesterol: less than 200 mg/dL Borderline High Cholesterol: 200-239 mg/dL High Cholesterol: greater than 239 mg/dL LDL Cholesterol Calculated 135 <100 mg/dL Desirable LDL: less than 100 mg/dL Near Optimal/Above Optimal LDL: 110-129 mg/dL Borderline High LDL: 130-159 mg/dL High LDL: 160-189 mg/dL Very High LDL: greater than or equal to 190 mg/dL HDL Cholesterol 44 >40 mg/dL Desirable HDL: greater than 40 mg/dL Note: This HDL assay may give artificially low results in patients with liver disease. Reason For Referral Reason Consult and Treat New lesion on tip of nose Diagnosis 1 Lesion of nose (J34. 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 Patient was made aware he does have to call and schedule his appointment, D 08/27/2024 03:53:05 PM > Patient is scheduled for 09/16/24 @ 9am in the [place] office Referral Priority Routine Referral Appointment Date 09/16/2024 Medications Medication SIG (Take, Route, Fr equency, Duration) Notes Start Date End Date Status Omeprazole 20 MG 1 capsule Orally Once a day Active Nicotine Mini 2 MG as directed Mouth/Throat Active Dicyclomine HCl 20 MG 1 tablet Orally Th ree times a day Active Immunizations Vaccine Route Administration Date Status Comme nts SHINGRIX Unknown 06/11/2021 Administered SHINGRIX Unknown 01/27/2021 Administered COVID PFIZER Unknown 03/23/2021 Administered COVID PFIZER Unknown 09/16/2021 Administered COVID PFIZER Unknown 08/19/2020 Administered COVID PFIZER Unknown 09/09/2020 Administered Tdap Unknown 01/25/2022 Administered Influenza, quad Unknown 01/27/2021 Administered Influenza, quad Unknown 01/17/2020 Administered Influenza, quad Unknown 02/23/2018 Administered Influenza, quad Unknown 01/01/2024 Administered COVID-19 Comirnaty Pfizer-BioNTech Unknown 01/01/2024 A dministered Social History Tobacco Use: Social History Observation [...] Problem Status W/U Status Risk Notes Problem 7043328 Former smoker (Z87.891) Active confirmed He has a planned to prevent relapse and times of stress and illness. Problem Overweight (820017002) Overweight (E66.3) Active confirmed His body mass index is 25.06. We discussed his weight loss strategy. We set a target BMI for 22.5. Problem 001832292318735 Obesity (BMI 30.0-34.9) (E66.9) Active confirmed His body mass index is slightly over 30. We discussed diet and nutrition. We made a plan to lose weight at a rate of one half of a pound per week through a diet restricted in fat calories and sodium combined with regular physical activity. 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 He is not sure what the diagnosis is. Neither is the ophthalmologis ts. He apparently has some edema of the retinal vessels and is being treated with intraocular injections. Problem 39210552 Calculus of gallbladder without cholecystitis without obstruction (K80.20) Active confirmed He continues to be asymptomatic. Problem Benign prostatic hyperplasia (307386919) BPH (benign prostatic hyperplasia) (N40.0) Active confirmed He rises from sleep once a night on the average. We reviewed several lifestyle modifications he could make to reduce this. Problem 971642964 Rectal cancer (C20) Active confirmed There was no sign of recurrent disease on today's examination. He was recently restaged by surgical oncology and remains in remission from the rectal cancer. Problem 359340598 Elevated total protein (R77.8) Active confirmed His total protein has returned to normal.He has remained normal and this problem will be removed from his problem list. Problem 41194842369960 History of hepatitis C (Z86.19) Active confirmed He has been treated and his viral titers are now 0. Problem 982434450 Basal cell carcinoma of nose (C44.311) Active confirmed The lesion mar s been removed without recurrence. Scarring is minimal. He has had a very good cosmetic result.There is now a scab on the tip of his nose . He was referred back to dermatology for evaluation. Problem 658326172 Family history of prostate cancer (Z80.42) Active confirmed He has a strong family history of prostate cancer. His PSA is 4.4. This will be followed carefully. Vital Signs Heart Rate 58 /min 08/26/2024 Temperature 98.6 degrees Fahrenheit 08/26/2024 Blood pressure diastolic 87 mm Hg 08/26/2024 Height 67 in 08/26/2024 Blood pressure systolic 138 mm Hg 08/26/2024 Weight 164 lbs 08/26/2024 BMI 25.68 kg/m2 08/26/2024 Encounters Encounter Location Date Provider Diagnosis Jeovany Pineda III, MD [address] [place] [address] [place] [address] 12/05/2023 Jeovany Pineda Basal cell carcinoma of nose C44.311 ; Overweight E66.3 ; BPH (benign prostatic hyperplasia) N40.0 ; Hepatitis K75.9 ; Former smoker Z87.891 and Rectal cancer C20 Jeovany Pineda III, MD [address] [place] [address] [place] [address] 02/26/2024 Jeovany Pineda Basal cell carcinoma of nose C44.311 ; Rectal cancer C20 ; Overweight E66.3 ; BPH (benign prostatic hyperplasia) N40.0 ; Calculus of gallbladder without cholecystitis without obstruction K80.20 ; Elevated total protein R77.8 ; Former smoker Z87.891 and History of hepatitis C Z86.19 Jeovany Pineda III, MD [address] [place] [address] [place] [address] 08/26/2024 Jeovany Pineda Basal cell carcinoma of nose C44.311 ; Overweight E66.3 ; Calculus of gallbladder without cholecystitis without obstruction K80.20 ; Rectal cancer C20 ; History of hepatitis C Z86.19 ; Elevated total protein R77.8 ; Former smoker Z87.891 and Retinal edema H35.81 Jeovany Pineda III, MD [address] [place] [address] [place] [address] 10/09/2023 Jeovany Pineda III, MD [address] [place] [address] [place] [address] 02/12/2024 Jeovany Pineda Basal cell carcinoma of nose C44.311 Assessments Encounter Date Diagnosis (ICD Code) Assessment Notes Treat ment Notes Treatment Clinical Notes 12/05/2023 Overweight (ICD-10 - E66.3) His body mass index is 25.06. We discussed his weight loss strategy. We set a target BMI for 22.5. 12/05/2023 Basal cell carcinoma of nose (ICD-10 - C44.311) The lesion has been removed without recurrence. Scarring is minimal. He has had a very good cosmetic result. 02/26/2024 Rectal cancer (ICD-10 - C20) There was no sign of recurrent disease on today's examination. He was recently restaged by surgical oncology and remains in remission from the rectal cancer. 02/26/2024 Basal cell carcinoma of nose (ICD-10 - C44.311) The lesion has been removed without recurrence. Scarring is minimal. He has had a very good cosmetic result. 08/26/2024 Overweight (ICD-10 - E66.3) His body mass index is 25.06. We discussed his weight loss strategy. We set a target BMI for 22.5. 08/26/2024 Basal cell carcinoma of nose (ICD-10 - C44.311) The lesion has been removed without recurrence. Scarring is minimal. He has had a very good cosmetic result.There is now a scab on the tip of his nose . He was referred back to dermatology for evaluation. 02/12/2024 Basal cell carcinoma of nose (ICD-10 - C44.311) The lesion has been removed without recurrence. Scarring is minimal. He has had a very good cosmetic result. 12/05/2023 BPH (benign prostatic hyperplasia) (ICD-10 - N40.0) He rises from sleep once a night on the average. We reviewed several lifestyle modifications he could make to reduce this. 02/26/2024 Overweight (ICD-10 - E66.3) His body mass index is 25.06. We discussed his weight loss strategy. We set a target BMI for 22.5. 08/26/2024 Calculus of gallbladder without cholecystitis without obstruction (ICD-10 - K80.20) He continues to be asymptomatic. 12/05/2023 Hepatitis (ICD-10 - K75.9) The hepatitis C is now in remission with negative titers. 02/26/2024 BPH (benign prostatic hyperplasia) (ICD-10 - N40.0) He rises from sleep once a night on the average. We reviewed several lifestyle modifications he could make to reduce this. 08/26/2024 Rectal cancer (ICD-10 - C20) There was no sign of recurrent disease on today's examination. He was recently restaged by surgical oncology and remains in remission from the rectal cancer. 12/05/2023 Former smoker (ICD-10 - Z87.891) He has a planned to prevent relapse and times of stress and illness. 02/26/2024 Calculus of gallbladder without cholecystitis without obstruction (ICD-10 - K80.20) 08/26/2024 History of hepatitis C (ICD-10 - Z86.19) He has been treated and his viral titers are now 0. 12/05/2023 Rectal cancer (ICD-10 - C20) There was no sign of recurrent disease on today's examination. He was recently restaged by surgical oncology and remains in remission from the rectal cancer. 02/26/2024 Elevated total protein (ICD-10 - R77.8) His total protein has returned to normal. 08/26/2024 Elevated total protein (ICD-10 - R77.8) His total protein has returned to normal.He has remained normal and this problem will be removed from his problem list. 02/26/2024 Former smoker (ICD-10 - Z87.891) He has a planned to prevent relapse and times of stress and illness. 08/26/2024 Former smoker (ICD-10 - Z87.891) He has a planned to prevent relapse and times of stress and illness. 02/26/2024 History of hepatitis C (ICD-10 - Z86.19) He has been treated and his viral titers are now 0. 08/26/2024 Retinal edema (ICD-10 - H35.81) . He is not sure what the diagnosis is. Neither is the ophthalmologists. He apparently has some edema of the retinal vessels and is being treated with intraocular injections. Plan Of Treatment Pending Test Test Name Order Date PROFILE, FASTING (COMPREHENSIVE METABOLI C) 03/10/2021 PROFILE, FASTING (COMPREHENSIVE METABOLI C) 02/14/2022 PROFILE, FASTING (COMPREHENSIVE METABOLI C) 02/20/2023 PROFILE, FASTING (COMPREHENSIVE METABOLI C) 10/11/2021 PROFILE, FASTING (COMPREHENSIVE METABOLI C) 11/21/2022 PROFILE, FASTING (COMPREHENSIVE METABOLI C) 04/14/2021 PROFILE, RANDOM (COMPREHENSIVE METABOLIC ) 06/12/2023 PROFILE, RANDOM (COMPREHENSIVE METABOLIC ) 05/16/2022 HEMOGLOBIN A1C (GLYCOHEMOGLOBIN) 021 LIPID PANEL 02/14/2022 LIPID PANEL 03/10/2021 LIPID PANEL 11/21/2022 GGT 06/12/2023 FERRITIN 03/10/2021 PSA, TOTAL 02/14/2022 PSA, TOTAL 10/11/2021 PSA, TOTAL 11/21/2022 PSA, TOTAL 03/10/2021 PSA, TOTAL+FREE 05/16/2022 CEA 03/10/2021 CBC w DIFF 04/14/2021 CBC w DIFF 11/21/2022 CBC w DIFF 06/12/2023 CBC w DIFF 03/10/2021 CBC w DIFF 05/16/2022 CBC w DIFF 02/14/2022 CBC w DIFF 10/11/2021 HEPATITIS A,B,C PROFILE 06/12/2023 US ABD 03/10/2021 VITAMIN D 25-OH TOTAL 03/10/2021 CBC WITH AUTO DIFF 02/20/2023 Lipid Panel 10/11/2021 Lipid Panel 04/14/2021 Lipid Panel 02/20/2023 Next Appt Details Provider Name:Jeovany Pineda, 10/28/2024 11:15:00 AM, [address] [place] [address] [address], [place], [address], Provider Name:Jeovany Pineda, 03/03/2025 09:30:00 AM, [address] [place] [address] [address], [place], [address], Insurance Providers Payer Name Payer Address Payer Phone Subscriber Number Group Number Insured Name Patient Relationship to Insured Coverage Start Date Coverage End Date [facility] [address] [place], [place] [id number] Sukhjinder Rodríguez Self - patient is the insured Medical (General) History Medical History History ICD Code Cholelithiasis Basal cell carcinoma of the nose Obesity Benign prostatic hypertrophy Stage I adenocarcinoma of the rectum, tr ansanally removed Overweight Rectal cancer in remission Hepatitis C 2023 Former smoker Ocular injections Surgical History Surgery Date(Month/Year) No history rectal surgery 06/2021 [facility] Basal cell removal 07/31 022 colon surgery [facility] 06/2021 Hospitalization History Reason Date(Month/Year) No history Resection rectal cancer 06/2021
--- OUTSIDE RECORDS SUMMARY | 2024-08-31 09:21 | XMS_ITS ---
Author Organization Jeovany Pineda III, MD Address [address] [address] Care Team Providers Care Hand Packager Name Role Phone Jeovany Pineda Primary Care Provider [phone] Allergies Allergen (clinical drug ingredient) Drug/Non Drug [...] Problem Status W/U Status Risk Notes Problem [id number] History of hepatitis C (Z86.19) Active confirmed [...] Provider Diagnosis Jeovany Pineda III, MD [address] [place] [address] [place] [address] 02/26/2024 Jeovany Pineda Basal cell carcinoma of [...] months, Reason: OV, Routine checkup Provider Name:Jeovany Pineda, 10/28/2024 11:15:00 AM, [address] [place] [address] [address], [place], [address], Provider Name:Jeovany Pineda, 03/03/2025 09:30:00 AM, [address] [place] [address] [address], [place], [phone], Progress Notes * Sukhjinder RODRÍGUEZ KDOB:1965 (59 yo M)Acc No.[id number]:02/26/2024 Progress Notes Patient:?Sukhjinder RODRÍGUEZ Glenda Provider:?Jeovany Pineda MD :1965???Age:59 Y???Sex:Male Bebeto e:02/26/2024 Address:[address] [place] [address] [id number] Subjective: * Chief Complaints: * ?[facility] * HPI: ???Depression Screening:?PHQ-9?Little interest or pleasure in doing things?Not at all ?Feeling down, depressed, or hopeless?Not at all ?Trouble falling or staying asleep, or sleeping too much?Not at all ?Feeling tired or having little energy?Not at all ?Poor appetite or overeating?Not at all ?Feeling bad about yourself or that you are a failure, or have let yourself or your family down?Not at all ?Trouble concentrating on things, such as reading the newspaper or watching television?Not at all ?Moving or speaking so slowly that other people could have noticed; or the opposite, being so fidgety or restless that you have been moving around a lot more than usual?Not at all ?Thoughts that you would be better off or of hurting yourself in some way?Not at all ?Total Score?0 ???COVID-19 Screening:?Questions?Have you experienced fever, chills, cough, sore throat, shortness of breath, difficulty breathing, muscle aches, loss of taste or smell??No ?Have you been exposed to the virus within the last 10 days??No ?Have you travelled internationally in the last 10 days??No ?Have you been exposed to COVID-19 in the past??No ???SDOH Questions:?SDOH Questions?In the past year have you been worried about losing your housing??No ?In the past year have you or any family members you live with been unable to get any of the following when it was really needed? Check all that apply:?None ???:?The patient, a 59-year-old male, has been followed [...] not macular degeneration, from Dr. Lopez at [facility]. He received Hepatitis A&B and flu shots last month. * ROS:?General/Constitutional:?pain?only normal aches and pains.?Chills?denies.?Fatigue?admits.?Fever?denies.?ENT:?Decreased hearing?denies.?Respiratory:?Cough?denies.?Cardiovascular:?Chest pain with exertion?denies.?Dyspnea on exertion?denies.?Shortness of breath?denies.?Gastrointestinal:?Constipation?denies.?Decreased appetite?denies.?Diarrhea?denies.?Heartburn?denies.?Nausea?denies.?Rectal bleeding?denies.?Vomiting?denies.?Hematology:?bruising?denies.?petechiae?denies.?Swollen glands?none have been noted.?Genitourinary:?Frequent urination?once a night.?Musculoskeletal:?Muscle aches?denies.?Painful joints?denies.?Sciatica?denies.?Weakness?denies.?Skin:?Itching?denies.?Rash?denies.?Skin lesion(s)?denies.?Neurologic:?Difficulty speaking?denies.?Dizziness?denies.?Headache?denies.?Low back pain?denies.?Psychiatric:?Depressed mood?denies.? * Medical History:? * Surgical History:?colon [facility] 06/2021[facility] Basal cell removal 2rectal surgery 06/2021No history * Hospitalization/Major Diagno stic Procedure:?Resection rectal cancer 06/2021No history * Family History:?Father: dece ased 84 yrs, January 2021, coronary artery disease, congestive heart failure. Stage IV chronic kidney disease, diagnosed with CVD.?Mother: alive 81 yrs, Diabetes mellitus rheumatoid arthritis, COPD, no history of cancer, diagnosed with DM.?Son(s): alive.?Daughter(s): alive.?Siblings: alive.?Paternal Grand Father: , diagnosed with Cancer. 4 brother(s) , 1 sister(s) - healthy. 2 son(s) , 1 daughter(s) - healthy. .? His father of coronary artery disease, congestive [...] of addiction or substance abuse. * Social History:?Tobacco Use:?Tobacco Use/Smoking?Patient is a?former smoker ?How long has it been since you last smoked??5-10 years ?Additional Findings: Tobacco Non-User?Ex-cigarette smoker ?Tobacco Control (Standard)?Tobacco use:?Former smoker ?How long has it been since you last smoked??5-10 years ?Additional Findings: Tobacco non-user?Ex-cigarette smoker ???Drugs/Alcohol:?Drugs?Have you used drugs other than those for medical reasons in the past 12 months??No ???Drug/Alcohol:?AUDIT-C (Standard)?Did you have a drink containing alcohol in the past year??No ?Points?0 ?Interpretation?Negative ???He was born and [place], [place]. He has 3 children, 2 sons and one daughter. He has no grandchildren. He is . 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 He has had no exposures to toxic materials or asbestos. * Medications:?TakingNicotine Mini 2 MG Lozenge as directed Mouth/Throat [...] reviewed and reconciled with the patient * Allergies:?No Known Drug All ergyno[Allergies Verified] Objective: * Vitals:?Ht: 67, Wt: 161, BMI :25.21, BP: 134/74, HR: 53, Temp: 99.4, Wt-k.03. * ???Past Orders: Lab:Liver Panel * Collection Date 11/28/2023 [...] NOT DETECTED (Ref Range: NOT DETECTED IU/mL) 1769994?A (Ref Range: NOT DETECTED IU/mL) HCV Log PCR <1.18 NOT DETECTED (Ref Range: NOT DETECTED Log IU/mL) <1.18 NOT DETECTED (Ref Range: NOT DETECTED Log IU/mL) 6.06?A (Ref Range: NOT DETECTED Log IU/mL) * Lab:Prostate Specific Antige n * Collection Date 02/19/2024 02/14/2023 Collection Time 08:50 AM 11:40 AM Order Date 02/19/2024 02/14/2023 Prostate Specific Antigen 1.87 (Ref Range: <0.05-4.0 ng/mL) 4.40?H (Ref Range: <0.05-4.0 ng/mL) * Lab:Lipid Panel * Collection Date 02/19/2024 02/14/2023 03/12/2021 Collection Time 08:50 AM 11:40 AM 08:14 AM Order Date 02/19/2024 02/14/2023 03/12/2021 Triglycerides 87 (Ref Range: <150 mg/dL) 189?H (Ref Range: <150 mg/dL) 309 (Ref Range: mg/dL) Cholesterol 184 (Ref Range: <200 mg/dL) 226?H (Ref Range: <200 mg/dL) 206 (Ref Range: mg/dL) LDL Cholesterol Calculated 124?H (Ref Range: <100 mg/dL) 155?H (Ref Range: <100 mg/dL) 115 (Ref Range: mg/dl) HDL Cholesterol 43 (Ref Range: >40 mg/dL) 34?L (Ref Range: >40 mg/dL) 30 (Ref Range: mg/dL) * Lab:Lurdes Devlin l Fast * Collection Date 02/19/2024 02/14/2023 [...] 5-37 U/L) 35 (Ref Range: 5-37 U/L) 40?H (Ref Range: 5-37 U/L) Alanine Aminotransferase 23 (Ref Range: 0-40 U/L) 39 (Ref Range: 0-40 U/L) 42?H (Ref Range: 0-40 U/L) Total Protein 7.6 (Ref Range: 6.5-8.0 g/dL) 8.3?H (Ref Range: 6.5-8.0 g/dL) 7.7 (Ref Range: [...] 105 (Ref Range: 96-108 mmol/L) Carbon Dioxide 30?H (Ref Range: 22-29 mmol/L) 25 (Ref Range: 22-29 mmol/L) 29 (Ref Range: 22-29 mmol/L) Anion Gap 11?L (Ref Range: 12-20) 14 (Ref Range: 12-20) 9?L (Ref Range: 12-20) Blood Urea Nitrogen 17?H (Ref Range: 9-16 mg/dL) 16 (Ref Range: 9-16 mg/dL) 14 (Ref Range: 9-16 mg/dL) Creatinine 0.87 (Ref Range: 0.5-1.4 mg/dL) 0.96 (Ref Range: 0.5-1.4 mg/dL) 0.94 (Ref Range: 0.5-1.4 mg/dL) Estimated Glomerular Filt Rate > 60 > 60 > 60 Glucose Fasting 95 (Ref Range: 60-99 mg/dL) 104?H (Ref Range: 60-99 mg/dL) 95 (Ref Range: [...] (Ref Range: 4.8-10.8 X10*3/uL) Red Blood Count 4.46?L (Ref Range: 4.60-5.80 X10*6/uL) 4.55?L (Ref Range: 4.60-5.80 X10*6/uL) 4.70 (Ref Range: 4.60-5.80 X10*6/uL) Hemoglobin 14.0 (Ref Range: 14.0-18.0 g/dl) 14.1 (Ref Range: 14.0-18.0 g/dl) 14.5 (Ref Range: 14.0-18.0 g/dl) Hematocrit 41.3?L (Ref Range: 42.0-52.0 %) 41.2?L (Ref Range: 42.0-52.0 %) 43.4 (Ref Range: [...] 13.3 (Ref Range: 11.0-16.0 %) Platelet Count 153?L (Ref Range: 160-400 X10*3/uL) 159?L (Ref Range: 160-400 X10*3/uL) 166 (Ref Range: 160-400 X10*3/uL) Mean Platelet Volume 10.4 (Ref Range: 9.4-12.4 fL) 10.0 (Ref Range: 9.4-12.4 fL) 10.8 (Ref Range: 9.4-12.4 fL) Neutrophils Percent Auto 31.3?L (Ref Range: 45-73 %) 29.0?L (Ref Range: 45-73 %) 33.6?L (Ref Range: 45-73 %) Imm Gran Pct Auto 0.2 (Ref Range: 0.0-0.4 %) 0.0 (Ref Range: 0.0-0.4 %) 0.2 (Ref Range: 0.0-0.4 %) Lymphocytes Percent Auto 53.4?H (Ref Range: 20-40 %) 54.7?H (Ref Range: 20-40 %) 51.5?H (Ref Range: 20-40 %) Monocytes Percent Auto 9.8 (Ref Range: 2-11 %) 9.6 (Ref Range: 2-11 %) 9.2 (Ref Range: 2-11 %) Eosinophils Percent Auto 4.3?H (Ref Range: 0-4 %) 5.3?H (Ref Range: 0-4 %) 4.2?H (Ref Range: 0-4 %) Basophils Percent Auto 1.0 (Ref Range: 0-2 %) 1.4 (Ref Range: 0-2 %) 1.3 (Ref Range: 0-2 %) NRBC Pct Auto 0.0 (Ref Range: 0.0-0.2 /100WBC) 0.0 (Ref Range: 0.0-0.2 /100WBC) 0.0 (Ref Range: 0.0-0.2 /100WBC) Neutrophils Absolute Auto 1.9?L (Ref Range: 2.0-8.3 x10*3/uL) 1.7?L (Ref Range: 2.0-8.3 x10*3/uL) 2.1 (Ref Range: [...] 0.000 (Ref Range: 0.0-0.012 X10*3/uL) * Examination: ???General Examination: ?GENERAL APPEARANCE:?pleasant, well nourished, well developed, in no acute distress, calm and relaxed, overweight, man.?HEAD:?atraumatic, normocephalic.?EYES:?eomi, perrla, anicteric, conjugate.?EARS:?normal.?NOSE:?septum intact.?ORAL CAVITY:?normal, unremarkable.?NECK/THYROID:?no jugular venous distention, no carotid bruit, thyroid normal.?LYMPH NODES:?no enlarged lymph nodes,spleen normal.?SKIN:?no suspicious lesions, anicteric.?HEART:?no clicks, gallops, murmurs, or rubs, regular rhythm, S1, S2 normal, no s3, or vascular bruits.?LUNGS:?clear to auscultation .?BREASTS:??no masses palpable bilaterally.?ABDOMEN:?bowel sounds normal, no ascites, no organomegaly, no mass.?RECTAL EXAM:?not examined.?MUSCULOSKELETAL:?extremities unremarkable, no clubbing, cyanosis or edema.?PERIPHERAL PULSES:?normal.?NEUROLOGIC:?alert and oriented, cranial nerves 2-12 grossly intact, deep tendon reflexes 2+ symmetrical, motor strength normal upper and lower extremities, sensory exam intact.?PSYCH:?alert, oriented.? Assessment: * Assessment: 1.?Rectal cancer - C20 (Prim lillie)???Notes :There was no sign of recurrent disease on today's examination. He was recently restaged by surgical oncology and remains in remission from the rectal cancer.???2.?Basal cell carcinoma of nose - C44.311???Notes :The lesion has been removed without recurrence. Scarring is minimal. He has had a very good cosmetic result.???3.?Overweight - E66.3???Notes :His body mass index is 25.06. We discussed his weight loss strategy. We set a target BMI for 22.5.???4.?BPH (benign prostatic hyperplasia) - N40.0???Notes :He rises from sleep once a night on the average. We reviewed several lifestyle modifications he could make to reduce this.???5.?Calculus of gallbladder without cholecystitis without obstruction - K80.20???6.?Elevated total protein - R77.8???Notes :His total protein has returned to normal.???7.?Former smoker - Z87.891???Notes :He has a planned to prevent relapse and times of stress and illness.???8.?History of hepatitis C - Z86.19???Notes :He has been treated and his viral titers are now 0.??? Plan: * Treatment: * Labs:? * ?Lab: PROFILE, FASTING ( COMPREHENSIVE METABOLIC) ?Lab: CBC WITH AUTO DIFF ?Lab: Lipid Panel ?Lab: URINE DIP STICK (C ollection Date & Time - 02/26/2024) ? Value Reference Range ?SG 1.015 1.005 - 1.025 * ?pH 6.5 5.0 - 9.0 * ?TYLOR Negative Negative - * ?NIT Negative Negative - * ?PRO 15 Negative - Trac e * ?GLU Negative Negative - * ?KET 5 Negative - * ?UBG 0.2 0.1 - 1.8 * ?BLESSING 1 0.2 - 1.3 * ?BLD Negative Negative - * Procedure Codes:?04576 URINE -NO MICRO * Preventive Medicine:? ??Counseling:?Care goal follow-up plan:?Counseling for abnormal BMI given?Yes ?Above Normal BMI Follow-up?Dietary management education, guidance, and counseling, Dietary needs education, Exercise promotion: strength training, Exercise promotion: stretching, Feeding regime, Giving encouragement to exercise, Lifestyle education regarding diet, Nutrition / feeding management, Nutrition therapy, Prescribed activity/exercise education, Prescribed diet education, Prescribed dietary intake, Special diet education, Weight monitoring , Intervention, Order not done: Medical or Other reason not done ?Smoking/Tobacco Use?Patient counseled on the dangers of tobacco use and urged to quit.?02/26/2024 * Follow Up:?6 Months, In six months (Reason: OV, Routine checkup) * Images: * Sign off status: Completed true * Provider:?Jeovany Pineda MD Date:?01/30 Generated for Printi ng/Torrie/eTransmitting on:?08/31/2024 09:20 AM EDT History and Physical Notes * [...]
--- OUTSIDE RECORDS SUMMARY | 2024-08-31 09:21 | XMS_ITS ---
Author Organization Jeovany Pineda III, MD Address [address] [place] [address] Care Team Providers Care Drawing Hand Name Role Phone Jeovany Pineda Primary Care [...] Problem Status W/U Status Risk Notes Problem [id number] Retinal edema (H35.81) Active confirmed . He is not sure what the diagnosis is. Neither is the digital imager s. He apparently has some edema of [...] Date Provider Diagnosis Jeovany Pineda III, MD [address] [place] [address] DR JONES [place], [place] [id number] 08/26/2024 Jeovany Pineda Basal cell carcinoma of [...] Up: 2 Months, Reason: ov Provider Name:Jeovany Ruizrne, 10/28/2024 11:15:00 AM, [address] [place] [address] [address], [place], [phone], Provider Name:Jeovany Edwin, 03/03/2025 09:30:00 AM, [address] [place] [address] [place], [place], [phone], Progress Notes * Sukhjinder RODRÍGUEZ KDOB:1965 (59 yo M)Acc No.[id number]:08/26/2024 Progress Notes Patient:?Sukhjinder RODRÍGUEZ Provider:?Jeovany Pineda MD :1965???Age:59 Y???Sex:Male Bebeto e:08/26/2024 Address:[address] [place], [place] [id number] Subjective: * Chief Complaints: * ???OverweightBPHGallstonesRe tinal problem * HPI: ???COVID-19 Screening:?occ noct x 1,? fluids benefiber with water before bed, ak's, avril greenberg, retinoloogist, shots in eyes left only, $800 vs 175$.? ?He has been well since his last visit.? He complains of nocturia once a night but says he drinks.? His fiber with fluid before bed.? He has a history of skin cancer on the outside of his right nose and recently has had a skin that occasionally bleeds on the tip.? He is concerned this may be a new lesion or recurrence.? He was referred to dermatology.? He has developed a problem with his left thigh.? He did not describe it very clearly but his digital imager referred him to a retina specialist, Dr. Avril Greenberg, at [facility] on [facility] in [place]. She is giving him injections in the left eye.? They are very expensive any cannot afford it and his insurance does not cover it I recommended he is a second opinion or frequent visits to the eye doctor while he is not taking the medication.? He has had no rectal bleeding or abdominal pain. ?Questions?Have you had any new onset fever, chills, cough, congestion, sore throat, shortness of breath, muscle aches??No * ROS:?General/Constitutional:?pain?only normal aches and pains.?Chills?denies.?Fatigue?admits.?Fever?denies.?ENT:?Decreased hearing?denies.?Respiratory:?Cough?denies.?Cardiovascular:?Chest pain with exertion?denies.?Dyspnea on exertion?denies.?Shortness of breath?denies.?Gastrointestinal:?Constipation?occasional.?Decreased appetite?denies.?Diarrhea?denies.?Heartburn?denies.?Nausea?denies.?Rectal bleeding?denies.?Vomiting?denies.?Hematology:?bruising?denies.?petechiae?denies.?Swollen glands?none have been noted.?Genitourinary:?Frequent urination?once a night.?Musculoskeletal:?Muscle aches?denies.?Painful joints?denies.?Sciatica?denies.?Weakness?denies.?Skin:?Itching?denies.?Rash?denies.?Skin lesion(s)?Tip of nose.?Neurologic:?Difficulty speaking?denies.?Dizziness?denies.?Headache?denies.?Low back pain?denies.?Psychiatric:?Depressed mood?denies.? * Medical History:? * Surgical History:?colon surg [facility] 06/2021[facility] Basal cell removal 04/2022rectal surgery 06/2021No history * Hospitalization/Major Diagno stic [...] or substance abuse. * Social History:?Tobacco Use:?Tobacco Control (Standard)?Tobacco use:?Former smoker ?How long has it been since you last smoked??5-10 years ?Additional Findings: Tobacco non-user?Ex-cigarette smoker ???He was born and [place], [place]. He has 3 children, 2 sons and one daughter. He has no grandchildren. He is . 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 He has had no exposures to toxic materials or asbestos. * Medications:?TakingOmeprazol e 20 MG Capsule Delayed Release 1 capsule [...] ergyno[Allergies Verified] Objective: * Vitals:?Ht: 67, Wt: 164, BMI :25.68, BP: 138/87, HR: 58, Temp: 98.6, Wt-k.39. * ???Past Orders: Lab:Complete Blood Count Aut o Diff * Collection Date 08/24/2024 02/19/2024 06/26/2023 Collection Time 09:09 AM 08:50 AM 09:33 AM Order Date 08/24/2024 02/19/2024 06/26/2023 White Blood Count 6.0 (Ref Range: 4.8-10.8 X10*3/uL) 6.0 (Ref Range: 4.8-10.8 X10*3/uL) 5.9 (Ref Range: 4.8-10.8 X10*3/uL) Red Blood Count 4.67 (Ref Range: 4.60-5.80 X10*6/uL) 4.46?L (Ref Range: 4.60-5.80 X10*6/uL) 4.55?L (Ref Range: 4.60-5.80 X10*6/uL) Hemoglobin 14.7 (Ref Range: 14.0-18.0 g/dl) 14.0 (Ref Range: 14.0-18.0 g/dl) 14.1 (Ref Range: 14.0-18.0 g/dl) Hematocrit 43.4 (Ref Range: 42.0-52.0 %) 41.3?L (Ref Range: 42.0-52.0 %) 41.2?L (Ref Range: 42.0-52.0 %) Mean Corpuscular Volume [...] Platelet Count 172 (Ref Range: 160-400 X10*3/uL) 153?L (Ref Range: 160-400 X10*3/uL) 159?L (Ref Range: 160-400 X10*3/uL) Mean Platelet Volume 10.1 (Ref Range: 9.4-12.4 fL) 10.4 (Ref Range: 9.4-12.4 fL) 10.0 (Ref Range: 9.4-12.4 fL) Neutrophils Percent Auto 32.8?L (Ref Range: 45-73 %) 31.3?L (Ref Range: 45-73 %) 29.0?L (Ref Range: 45-73 %) Imm Gran Pct Auto 0.2 (Ref Range: 0.0-0.4 %) 0.2 (Ref Range: 0.0-0.4 %) 0.0 (Ref Range: 0.0-0.4 %) Lymphocytes Percent Auto 51.5?H (Ref Range: 20-40 %) 53.4?H (Ref Range: 20-40 %) 54.7?H (Ref Range: 20-40 %) Monocytes Percent Auto 8.5 (Ref Range: 2-11 %) 9.8 (Ref Range: 2-11 %) 9.6 (Ref Range: 2-11 %) Eosinophils Percent Auto 6.0?H (Ref Range: 0-4 %) 4.3?H (Ref Range: 0-4 %) 5.3?H (Ref Range: 0-4 %) Basophils Percent Auto 1.0 (Ref Range: 0-2 %) 1.0 (Ref Range: 0-2 %) 1.4 (Ref Range: 0-2 %) NRBC Pct Auto 0.0 (Ref Range: 0.0-0.2 /100WBC) 0.0 (Ref Range: 0.0-0.2 /100WBC) 0.0 (Ref Range: 0.0-0.2 /100WBC) Neutrophils Absolute Auto 2.0 (Ref Range: 2.0-8.3 x10*3/uL) 1.9?L (Ref Range: 2.0-8.3 x10*3/uL) 1.7?L (Ref Range: 2.0-8.3 x10*3/uL) Imm Gran Abs [...] 6.5-8.0 g/dL) 7.6 (Ref Range: 6.5-8.0 g/dL) 8.3?H (Ref Range: 6.5-8.0 g/dL) Albumin Level 4.2 [...] 107 (Ref Range: 96-108 mmol/L) Carbon Dioxide 31?H (Ref Range: 22-29 mmol/L) 30?H (Ref Range: 22-29 mmol/L) 25 (Ref Range: 22-29 mmol/L) Anion Gap 8?L (Ref Range: 12-20) 11?L (Ref Range: 12-20) 14 (Ref Range: 12-20) Blood Urea Nitrogen 14 (Ref Range: 9-16 mg/dL) 17?H (Ref Range: 9-16 mg/dL) 16 (Ref Range: 9-16 mg/dL) Creatinine 0.82 (Ref Range: 0.5-1.4 mg/dL) 0.87 (Ref Range: 0.5-1.4 mg/dL) 0.96 (Ref Range: 0.5-1.4 mg/dL) Estimated Glomerular Filt Rate > 60 > 60 > 60 Glucose Fasting 81 (Ref Range: 60-99 mg/dL) 95 (Ref Range: 60-99 mg/dL) 104?H (Ref Range: 60-99 mg/dL) Calcium 9.6 (Ref Range: 8.4-10.2 mg/dL) 10.0 (Ref Range: 8.4-10.2 mg/dL) 9.8 (Ref Range: 8.4-10.2 mg/dL) * Lab:Lipid Panel * Collection Date 08/24/2024 02/19/2024 02/14/2023 Collection Time 09:09 AM 08:50 AM 11:40 AM Order Date 08/24/2024 02/19/2024 02/14/2023 Triglycerides 105 (Ref Range: <150 mg/dL) 87 (Ref Range: <150 mg/dL) 189?H (Ref Range: <150 mg/dL) Cholesterol 200?H (Ref Range: <200 mg/dL) 184 (Ref Range: <200 mg/dL) 226?H (Ref Range: <200 mg/dL) LDL Cholesterol Calculated 135?H (Ref Range: <100 mg/dL) 124?H (Ref Range: <100 mg/dL) 155?H (Ref Range: <100 mg/dL) HDL Cholesterol 44 (Ref Range: >40 mg/dL) 43 (Ref Range: >40 mg/dL) 34?L (Ref Range: >40 mg/dL) * Examination: ???General Examination: ?GENERAL APPEARANCE:?pleasant, well [...] organomegaly, no mass, overweight, Old healed surgical scar.?RECTAL EXAM:?not examined.?MUSCULOSKELETAL:?extremities unremarkable, no clubbing, cyanosis or edema.?PERIPHERAL PULSES:?normal.?NEUROLOGIC:?alert and oriented, cranial nerves 2-12 grossly intact, deep tendon reflexes 2+ symmetrical, motor strength normal upper and lower extremities, sensory exam intact.?PSYCH:?alert, oriented.? Assessment: * Assessment: 1.?Basal cell carcinoma of n ose - C44.311 (Primary)???Notes :The lesion has been removed without recurrence. Scarring is minimal. He has had a very good cosmetic result.There is now a scab on? the tip of his nose .? He was referred back to dermatology for evaluation.???2.?Overweight - E66.3???Notes :His body mass index is 25.06. We discussed his weight loss strategy. We set a target BMI for 22.5.???3.?Calculus of gallbladder without cholecystitis without obstruction - K80.20???Notes :He continues to be asymptomatic.???4.?Rectal cancer - C20???Notes :There was no sign of recurrent disease on today's examination. He was recently restaged by surgical oncology and remains in remission from the rectal cancer.???5.?History of hepatitis C - Z86.19???Notes :He has been treated and his viral titers are now 0.???6.?Elevated total protein - R77.8???Notes :His total protein has returned to normal.He has remained normal and this problem will be removed from his problem list.???7.?Former smoker - Z87.891???Notes :He has a planned to prevent relapse and times of stress and illness.???8.?Retinal edema - H35.81???Notes :.? He is not sure what the diagnosis is.? Neither is the ophthalmologists.? He apparently has some edema of the retinal vessels and is being treated with intraocular injections.??? Plan: * Treatment: * Procedure Codes:? * Preventive Medicine:? ??Counseling:?Care goal follow-up plan:?Counseling [...] dangers of tobacco use and urged to quit.?08/26/2024 * Follow Up:?2 Months (Reason: ov) * Images: * Sign off status: Completed true * Provider:?Jeovany Pineda MD Date:?07/31 Generated for Carriei rachel/Torrie/eTransmitting on:?08/31/2024 09:20 AM EDT History and Physical [...]
[2024-08-31 11:40] LABS: Alanine Aminotransferase 22 U/L (0-40); Albumin Level 4.2 g/dL (3.5-5.0); Aspartate Amino Transferase 31 U/L (5-37); Bilirubin Direct 0.2 mg/dL (0.0-0.5); Bilirubin Total 0.4 mg/dL (0.0-1.0); Total Protein 7.4 g/dL (6.5-8.0)
[2024-08-31 13:12] LABS: Alkaline Phosphatase 44 U/L (39-117)
[2024-09-03 14:18] LABS: HCV Log PCR <1.18 NOT DETECTED Log IU/mL (NOT DETECTED); HepC Viral Load <15 NOT DETECTED IU/mL (NOT DETECTED)
== END 2024-08-31 09:19 | disposition home or self-care (01) ==
LOC: HO.LAB 09:18
PROVIDERS: PCP Internal Medicine Medical Oncology; Visit Provider Nurse Practitioner
DX: B19.20 Unspecified viral hepatitis C without hepatic coma (principal)
CPT/HCPCS: 36415; 80076; 87522

== ENCOUNTER 2024-09-06 08:55 | Outpatient (AMB) | payer BC, SELFPAY ==
--- NOTE | 2024-09-06 08:57 | A.OFFVIS_ITS ---
Vital Signs 09/06/24 08:58 Height 5 ft 7 in Weight 164 lb 0.383 oz BMI 25.7 BP 143/75 H Blood Pressure Location Lt brachial Position Sitting Pulse 60 Pulse Source Pulse Oximeter Pulse Oximetry (%) 96 Oxygen Delivery Method Room Air Intake Visit Reasons: Review lab results. Hep C. AB Approved Intake Note: Pt presents to the office today for a follow up to review lab results. Pt states he is overall feeling well. Allergies No Known Allergies Allergy (Verified 09/06/24 08:58) HPI HPI Review lab results. Hep C. AB Approved: Details: Assessment & Plan (1) Hepatitis C infection: Comment: Laboratory Tests 06/26/2403/16/24 09:3313:34 Estimated GFR > 60 Total Bilirubin 0.5 AST 131 H 65 H ALT 244 H 79 H Alkaline Phosphatase 54 Liver GGT 43 Liver Fibrosis Stage F1-F2 Hepatitis C Ab (EIA) Reactive H Hep C Viral Load [id number] H Hep C Viral Load Log 6.06 H Hepatitis C Genotype 2 HIV 1&2 Ab/P24 Ag 4thGn Nonreactive US ABD WITH ELASTOGRAPHY 09/07/23 (F-1) FINDINGS: PANCREAS: Normal. The visualized pancreatic head and body are normal in appearance. The remainder of the pancreas is obscured from visualization by the overlying bowel gas. ABDOMINAL AORTA: The proximal, middle, and distal aortic segments are normal in caliber. INFERIOR VENA CAVA: Visualized portions are normal. LIVER: The liver demonstrates normal size, contour and increased echogenicity. No focal lesion or intrahepatic biliary duct dilatation. The right lobe measures 16.0 cm in length. The left lobe measures 9.3 cm in length. Portal flow is towards the liver (hepatopetal). Shear wave liver elastography median stiffness is 1.47 m/s (reference: normal median stiffness is 1.3 m/s or less). IQR/median stiffness to assess sampling precision is 0.26 (reference: good quality data set is IQR/median stiffness of 0.15 or less). GALLBLADDER: Normal. The gallbladder is physiologically distended without evidence of stones, sludge, polyps, wall thickening or pericholecystic fluid. COMMON BILE DUCT: Normal in caliber measuring 0.4 cm in diameter. RIGHT KIDNEY: Normal. No hydronephrosis. No renal calculi or focal parenchymal lesions. The kidney measures 11.1 cm in maximum dimension. LEFT KIDNEY: Normal. No hydronephrosis. No renal calculi or focal parenchymal lesions. The kidney measures 11.3 cm in maximum dimension. SPLEEN: Normal. The spleen measures 10.2 cm in maximum dimension. FREE FLUID: None. US/US abdomen comp w elastography IMPRESSION: 1. There is generalized increase in hepatic echotexture, consistent with fatty infiltration or hepatocellular disease. Please correlate clinically. No focal hepatic mass or intrahepatic biliary dilatation is seen. 2. Liver elastography: Although measurements appear to rule out compensated advanced chronic liver disease, there is statistical variability of the sampling which decreases accuracy. Code(s): B19.20 - Unspecified viral hepatitis C without hepatic coma Category: Medical Plan HE is at [facility] and has so far sustained his viral remission. Will re check in 6 mos. Orders: Orders Hepatitis C Viral Load 06/03/24 B19.20 - Unspecified viral hepatitis C without hepatic coma Liver Panel 06/03/24 B19.20 - Unspecified viral hepatitis C without hepatic coma LABS: Laboratory Tests 08/24/24 08/31/24 09:09 09:46 Estimated GFR > 60 Total Bilirubin 0.4 Direct Bilirubin 0.2 AST 31 ALT 22 Alkaline Phosphatase 44 Hep C Viral Load <15 NOT DETECTED Hep C Viral Load Log <1.18 NOT DETECTED WE REVIEW THE FACT that although he is cured from his current hepatitis-C strain he is not immune from lorrie any of the other strains. Therefore a he needs to modify and avoid risky behavior. However, should he suspect that he has been reinfected he should be tested as the treatment would be essentially the same regimen. He tolerated the treatment well and he is happy with the end result. MARQUES starks [facility] Medical History Hx of malignant neoplasm of colon GERD (gastroesophageal reflux disease) Irritable bowel syndrome with diarrhea History of basal cell carcinoma High cholesterol Surgical History History of esophagogastroduodenoscopy (EGD) Hx of colonoscopy No pertinent past surgical history Family History Mother Lung cancer Social History Household Members: Spouse Housing: House Are you a primary customer care specialist to a significant other at home: Yes Do you presently have visiting nurse or other home services: No Patient Tobacco Use Status: Former Tobacco user service: No Current occupational status: employed Current occupation: [employer] Review of Systems Const Denies fatigue, Denies fever(s), Denies night sweats, Denies poor appetite and Denies weight loss ENT Reports Normal hearing present, Denies dental pain, Denies dysphagia, Denies hearing loss, Denies mouth pain, Denies odynophagia, Denies throat swelling, Denies tongue swelling and Reports other (Dentition adequate) Card Reports no additional complaints Resp Reports no additional complaints GI Details: Denies abdominal pain, Denies melena, Denies bloating, Denies hematochezia, Denies constipation, Denies GI cramping, Denies dysphagia, Denies excessive flatus, Denies early satiety, Denies heartburn, Denies diarrhea, Denies nausea, Denies odynophagia, Denies vomiting and Denies hematemesis Skin/Breast Denies pruritus, Denies lesions, Denies rash and Denies jaundice Neuro Reports Normal hearing present and Denies Abnormal speech present Endo Denies fatigue Aller/Immun Denies throat swelling and Denies tongue swelling Physical Exam Vital Signs: Last Vital Signs Pulse 60 09/06/24 08:58 BP 143/75 H 09/06/24 08:58 Pulse Ox 96 09/06/24 08:58 Oxygen Delivery Method Room Air 09/06/24 08:58 BMI result Body Mass Index 25.7 Const General: cooperative, no acute distress, well developed and well groomed Nutritional Appearance: average body habitus and well nourished Orientation/consciousness: oriented to person, oriented to place and oriented to time Limitations: No language barrier HEENT Head: Yes normocephalic and Yes atraumatic Eyes General: appearance normal, both eyes and all related structures Pupils: Equal, round and reactive pupils present Neck Neck: Yes normal visual inspection and Yes no lymphadenopathy Thyroid: Thyroid normal Resp Effort & Inspection: normal respiratory effort and able to speak in complete sentences Auscultation: clear to auscultation bilaterally Cardio Rate: regular rate Rhythm: regular rhythm Heart sounds: Normal, physiologic split S2 sound present Peripheral pulses: radial pulses present and posterior tibial pulses present GI Inspection: No distended and No Abdominal panniculus present Palpation (GI): Soft to palpation, nontender, no guarding, not rigid and No hepatosplenomegaly present Percussion: Yes normal to percussion Auscultation: normal bowel sounds Rectal Exam - Male: Yes deferred Skin General skin exam: no rashes or lesions noted, turgor normal, skin not dry, no jaundice, No spider nevi and no striae Rashes: no rashes Nails: normal Neuro General: oriented to person, oriented to place and oriented to time Cranial nerves: Yes Equal, round and reactive pupils present and Yes Normal hearing present Speech: No Abnormal speech present Extrem General: Yes normal to inspection, No clubbing, No cyanosis and No edema Psych Appearance: grossly normal and well kempt Mental Status: mental status grossly normal Speech and movement: Normal speech and movement present Affect: normal affect Thought process: Normal thought process present and not confabulating Thought content: Normal thought content present Insight: Fair insight present (Psych) Judgement: Fair judgement present (Psych) Assessment & Plan Assessment & Plan (1) Hepatitis C infection: Comment: Laboratory Tests 06/26/2403/16/24 09:3313:34 Estimated GFR > 60 Total Bilirubin 0.5 AST 131 H 65 H ALT 244 H 79 H Alkaline Phosphatase 54 Liver GGT 43 Liver Fibrosis Stage F1-F2 Hepatitis C Ab (EIA) Reactive H Hep C Viral Load [id number] H Hep C Viral Load Log 6.06 H Hepatitis C Genotype 2 HIV 1&2 Ab/P24 Ag 4thGn Nonreactive CURRENT LABS 08/24/2504/03/25 09:0909:46 Estimated GFR > 60 Total Bilirubin 0.4 Direct Bilirubin 0.2 AST 31 ALT 22 Alkaline Phosphatase 44 Hep C Viral Load <15 NOT DETECTED Hep C Viral Load Log <1.18 NOT DETECTED US ABD WITH ELASTOGRAPHY 09/07/23 (F-1) FINDINGS: PANCREAS: Normal. The visualized pancreatic head and body are normal in appearance. The remainder of the pancreas is obscured from visualization by the overlying bowel gas. ABDOMINAL AORTA: The proximal, middle, and distal aortic segments are normal in caliber. INFERIOR VENA CAVA: Visualized portions are normal. LIVER: The liver demonstrates normal size, contour and increased echogenicity. No focal lesion or intrahepatic biliary duct dilatation. The right lobe measures 16.0 cm in length. The left lobe measures 9.3 cm in length. Portal flow is towards the liver (hepatopetal). Shear wave liver elastography median stiffness is 1.47 m/s (reference: normal median stiffness is 1.3 m/s or less). IQR/median stiffness to assess sampling precision is 0.26 (reference: good quality data set is IQR/median stiffness of 0.15 or less). GALLBLADDER: Normal. The gallbladder is physiologically distended without evidence of stones, sludge, polyps, wall thickening or pericholecystic fluid. COMMON BILE DUCT: Normal in caliber measuring 0.4 cm in diameter. RIGHT KIDNEY: Normal. No hydronephrosis. No renal calculi or focal parenchymal lesions. The kidney measures 11.1 cm in maximum dimension. LEFT KIDNEY: Normal. No hydronephrosis. No renal calculi or focal parenchymal lesions. The kidney measures 11.3 cm in maximum dimension. SPLEEN: Normal. The spleen measures 10.2 cm in maximum dimension. FREE FLUID: None. US/US abdomen comp w elastography IMPRESSION: 1. There is generalized increase in hepatic echotexture, consistent with fatty infiltration or hepatocellular disease. Please correlate clinically. No focal hepatic mass or intrahepatic biliary dilatation is seen. 2. Liver elastography: Although measurements appear to rule out compensated advanced chronic liver disease, there is statistical variability of the sampling which decreases accuracy. Code(s): B19.20 - Unspecified viral hepatitis C without hepatic coma Category: Medical Plan WE REVIEW THE FACT that although he is cured from his current hepatitis-C strain he is not immune from lorrie any of the other strains. Therefore a he needs to modify and avoid risky behavior. However, should he suspect that he has been reinfected he should be tested as the treatment would be essentially the same regimen. He tolerated the treatment well and he is happy with the end result. ROV p.r.n. Coding Level of Care Code Est Pt Level 3 (80594) Diagnoses Hepatitis C infection B19.20
[2024-09-06 08:58] VITALS: BP 143/75; PULSE 60; O2SAT 96; BMI 25.7
--- OUTSIDE RECORDS SUMMARY | 2024-09-06 09:08 | XMS_ITS | Patient Health Record ---
Author Organization Jeovany Pineda III, MD Address [address] [place] [address] Care Team Providers Care Assistant Credit Manager Name Role Phone Jeovany Pineda Primary Care Provider [phone] Allergies Allergen (clinical drug ingredient) Drug/Non Drug [...] 0.2 - 1.3 BLD Negative Negative - Liver Panel Reviewed date:10/08/2023 07:13:21 PM Interpretation: Performing Lab:[facility], [address] [place] [phone] Notes/Report: Bilirubin Total 0.6 0.0-1.0 mg/dL Bilirubin Direct 0.2 0.0-0.5 mg/dL Aspartate Amino Transferase 29 5-37 U/L Alanine Aminotransferase 22 0-40 U/L Total Protein 7.6 6.5-8.0 g/dL Albumin Level 4.1 3.5-5.0 g/dL Alkaline Phosphatase 42 39-117 U/L Hep C Viral Load Reviewed date:10/21/2023 05:54:09 PM Interpretation: Performing Lab:[facility], [address] [place] [phone] Notes/Report: HepC Viral Load <15 NOT DETECTED NOT DETECTED IU/mL HCV Log PCR <1.18 NOT DETECTED NOT DETECTED Log IU/mL For additional information, please refer to http://Synthorx.Nintu Oy/faq/FA Q22v1 (This link is being provided for informational/ educational purposes only.) THIS TEST WAS PERFORMED AT: [facility] [address] [place] [phone] RJ PALACIOS MD Liver Panel Reviewed date:12/03/2023 06:05:50 AM Interpretation: Performing Lab:[address] [address] Notes/Report: Bilirubin Total 0.3 0.0-1.0 mg/dL Bilirubin Direct 0.1 0.0-0.5 mg/dL Aspartate Amino Transferase 24 5-37 U/L Alanine Aminotransferase 18 0-40 U/L Total Protein 7.6 6.5-8.0 g/dL Albumin Level 4.1 3.5-5.0 g/dL Alkaline Phosphatase 55 39-117 U/L Hep C Viral Load Reviewed date:12/03/2023 06:05:50 AM Interpretation: Performing Lab:[address] [address] Notes/Report: HepC Viral Load <15 NOT DETECTED NOT DETECTED IU/mL HCV Log PCR <1.18 NOT DETECTED NOT DETECTED Log IU/mL For additional information, please refer to http://MANGO BCN/faq/FA Q22v1 (This link is being provided for informational/ educational purposes only.) THIS TEST WAS PERFORMED AT: [facility] [address] [place] [phone] RJ PALACIOS MD Complete Blood Count Auto Di ff Reviewed date:02/25/2024 06:34:28 AM Interpretation: Performing Lab:[address] [phone] Notes/Report: White Blood Count 6.0 4.8-10.8 X10*3/uL [...] NRBC Abs Auto 0.000 0.0-0.012 X10*3/uL Comprehensive Stigler. Panel Fa st Reviewed date:02/25/2024 06:34:28 AM Interpretation: Performing Lab:[facility], [address] [place] [phone] Notes/Report: Sodium 141 135-145 mmol/L Potassium 4.2 3.3-5.1 mmol/L Chloride 104 96-108 mmol/L Carbon Dioxide 30 22-29 mmol/L Anion Gap 11 12-20 Blood Urea Nitrogen 17 9-16 mg/dL Creatinine 0.87 0.5-1.4 mg/dL Estimated Glomerular Filt Rate > 60 NOTE: For -Bruneian individuals, multiply the result by 1.210. Chronic [...] Panel Reviewed date:02/25/2024 06:34:28 AM Interpretation: Performing Lab:[address] [address] Notes/Report: Triglycerides 87 <150 mg/dL Desirable Triglyceride: [...] Antigen Reviewed date:02/25/2024 06:34:28 AM Interpretation: Performing Lab:[address] [address] Notes/Report: Prostate Specific Antigen 1.87 <0.05-4.0 ng/mL PSA methodology: [place] Alinity i Chemiluminescent Microparticle Immunoassay (CMIA) Complete Blood Count Auto Di ff Reviewed date:08/26/2024 10:09:04 AM Interpretation: Performing Lab:[address] [address] Notes/Report: White Blood Count 6.0 4.8-10.8 X10*3/uL [...] NRBC Abs Auto 0.000 0.0-0.012 X10*3/uL Comprehensive Stigler. Panel Fa st Reviewed date:08/26/2024 10:09:04 AM Interpretation: Performing Lab:[facility], [address] [place] [phone] Notes/Report: Sodium 139 135-145 mmol/L Potassium 4.4 [...] Panel Reviewed date:08/26/2024 10:09:04 AM Interpretation: Performing Lab:[address] [address] Notes/Report: Triglycerides 105 <150 mg/dL Desirable Triglyceride: [...] low results in patients with liver disease. Liver Panel Reviewed date:09/03/2024 02:47:35 PM Interpretation: Performing Lab:[address] [address] Notes/Report: Bilirubin Total 0.4 0.0-1.0 mg/dL Bilirubin Direct 0.2 0.0-0.5 mg/dL Aspartate Amino Transferase 31 5-37 U/L Alanine Aminotransferase 22 0-40 U/L Total Protein 7.4 6.5-8.0 g/dL Albumin Level 4.2 3.5-5.0 g/dL Alkaline Phosphatase 44 39-117 U/L Hep C Viral Load Reviewed date:09/03/2024 02:47:35 PM Interpretation: Performing Lab:[address] [address] Notes/Report: HepC Viral Load <15 NOT DETECTED NOT DETECTED IU/mL HCV Log PCR <1.18 NOT DETECTED NOT DETECTED Log IU/mL For additional information, please refer to http://education.Nintu Oy/faq/FA Q22v1 (This link is being provided for informational/ educational purposes only.) THIS TEST WAS PERFORMED AT: [facility] [address] [place] [phone] RJ PALACIOS MD Reason For Referral Reason Consult and Treat New lesion on tip of nose Diagnosis 1 Lesion of nose (J34. 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 Patient was made aware he does have to call and schedule his appointment, Ana 08/27/2024 03:53:05 PM > Patient is scheduled for 09/16/24 @ 9am in the [place] office Referral Priority Routine Referral Appointment Date [...] Problem Status W/U Status Risk Notes Problem 9194599 Former smoker (Z87.891) Active confirmed He has a planned to prevent relapse and times of stress and illness. Problem Overweight (755463237) Overweight (E66.3) Active confirmed His body mass index is 25.06. We discussed his weight loss strategy. We set a target BMI for 22.5. Problem 737488936353128 Obesity (BMI 30.0-34.9) (E66.9) Active confirmed His body mass index is slightly over 30. We discussed diet and nutrition. We made a plan to lose weight at a rate of one half of a pound per week through a diet restricted in fat calories and sodium combined with regular physical activity. 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 He is not sure what the diagnosis is. Neither is the ophthalmologis ts. He apparently has some edema of the retinal vessels and is being treated with intraocular injections. Problem 35650915 Calculus of gallbladder without cholecystitis without obstruction (K80.20) Active confirmed He continues to be asymptomatic. Problem BPH (benign prostatic hyperplasia) (N40.0) Active confirmed He rises from sleep once a night on the average. We reviewed several lifestyle modifications he could make to reduce this. Problem 413188521 Rectal cancer (C20) Active confirmed There was no sign of recurrent disease on today's examination. He was recently restaged by surgical oncology and remains in remission from the rectal cancer. Problem 814659686 Elevated total protein (R77.8) Active confirmed His total protein has returned to normal.He has remained normal and this problem will be removed from his problem list. Problem 08870123246226 History of hepatitis C (Z86.19) Active confirmed He has been treated and his viral titers are now 0. Problem 240749937 Basal cell carcinoma of nose (C44.311) Active confirmed The lesion mar s been removed without recurrence. Scarring is minimal. He has had a very good cosmetic result.There is now a scab on the tip of his nose . He was referred back to dermatology for evaluation. Problem 258379994 Family history of prostate cancer (Z80.42) Active [...] Date Provider Diagnosis Jeovany Pineda III, MD [address] [place] [address] [place] [address] 12/05/2023 Jeovany Pineda Basal cell carcinoma of nose C44.311 ; Overweight E66.3 ; BPH (benign prostatic hyperplasia) N40.0 ; Hepatitis K75.9 ; Former smoker Z87.891 and Rectal cancer C20 Jeovany Pineda III, MD [address] [place] [address] [place] [address] 02/26/2024 Jeovany Pineda Basal cell carcinoma of nose C44.311 ; Rectal cancer C20 ; Overweight E66.3 ; BPH (benign prostatic hyperplasia) N40.0 ; Calculus of gallbladder without cholecystitis without obstruction K80.20 ; Elevated total protein R77.8 ; Former smoker Z87.891 and History of hepatitis C Z86.19 Jeovany Pineda III, MD [address] [place] [address] [place] [address] 08/26/2024 Jeovany Pineda Basal cell carcinoma of nose C44.311 ; Overweight E66.3 ; Calculus of gallbladder without cholecystitis without obstruction K80.20 ; Rectal cancer C20 ; History of hepatitis C Z86.19 ; Elevated total protein R77.8 ; Former smoker Z87.891 and Retinal edema H35.81 Jeovany Pineda III, MD [address] [place] [address] [place] [address] 10/09/2023 Jeovany Pineda III, MD [address] [place] [address] [place] [address] 02/12/2024 Jeovany Pineda Basal cell carcinoma of [...] Details Provider Name:Jeovany Pineda, 10/28/2024 11:15:00 AM, [address] [place] [address] [address], [place], [address], Provider Name:Jeovany Pineda, 03/03/2025 09:30:00 AM, [address] [place] [address] [address], [place], [address], Insurance Providers Payer Name Payer Address Payer Phone Subscriber Number Group Number Insured Name Patient Relationship to Insured Coverage Start Date Coverage End Date [facility] [address] [place], [place] [id number] Sukhjinder Rodríguez Self - patient is the insured Medical (General) History Medical History History ICD Code Cholelithiasis Basal cell carcinoma of the nose Obesity Benign prostatic hypertrophy Stage I adenocarcinoma of the rectum, tr ansanally removed Overweight Rectal cancer in remission Hepatitis C 2023 Former smoker Ocular injections Surgical History Surgery Date(Month/Year) No history rectal surgery 06/2021 [facility] Basal cell removal 07/31 022 colon surgery [facility] 06/2021 Hospitalization History Reason Date(Month/Year) No history Resection rectal cancer 06/2021
--- OUTSIDE RECORDS SUMMARY | 2024-09-06 09:08 | XMS_ITS ---
Author Organization Jeovany Pineda III, MD Address [address] [address] Care Team Providers Care Clothing Room Supervisor Name Role Phone Jeovany Pineda Primary Care Provider REASON FOR VISIT New Refill Request Medications Medication SIG (Take, Route, Fr equency, Duration) Notes Start Date End Date Status Omeprazole 20 MG 1 capsule Orally Onc e a day for 30 days Active Social History Sex Assigned At : Social History Observation Description Sex Assigned At Male Encounters Encounter Location Date Provider Diagnosis Jeovany Pineda III, MD [address] [place] [address] [place] [address] 02/12/2024 Jeovany Pineda Basal cell carcinoma of [...] 30 days Next Appt Details Provider Name:Jeovany Pineda, 10/28/2024 11:15:00 AM, [address] [place] [address] [place], [address], Provider Name:Jeovany Pineda, 03/03/2025 09:30:00 AM, [address] [place] [address] [place], [address], Progress Notes * Sukhjinder RODRÍGUEZ KDOB:1965 (59 yo M)Acc No.[id number]:02/12/2024 Patient:?Sukhjinder RODRÍGUEZ :1965???Age:59 Y???Sex:Male Address:[address] [place] [address], [phone] * Refills? Refill Omeprazole Capsule Delayed Release, 20 MG, Orally, 30 Capsule, 1 capsule, Once a day, 30 days, Refills=11 * true * Date:? Generated for Erickson ramos/Torrie/eTransmitting on:?09/06/2024 09:08 AM EDT
--- OUTSIDE RECORDS SUMMARY | 2024-09-06 09:08 | XMS_ITS ---
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 He is not sure what the diagnosis is. Neither is the telecommunication systems designer s. He apparently has some edema of [...] Date Provider Diagnosis Jeovany Pineda III, MD [address] [place] [address] [address], [place] [address] 08/26/2024 Jeovany Pineda Basal cell carcinoma of [...] ov Provider Name:Jeovany Ruizrne, 10/28/2024 11:15:00 AM, [address] [place] [address] [address], [place], [address], Provider Name:Jeovany Edwin, 03/03/2025 09:30:00 AM, [address] [place] [address] [address], [place], [address], Progress Notes * Sukhjinder RODRÍGUEZ KDOB:1965 (59 yo M)Acc No.[id number]:08/26/2024 Progress Notes Patient:?Sukhjinder RODRÍGUEZ Provider:?Jeovany Pineda MD :1965???Age:59 Y???Sex:Male Bebeto e:08/26/2024 Address:[address] [place], [place] [phone] Subjective: * Chief Complaints: * ???OverweightBPHGallstonesRe tinal [...] not describe it very clearly but his telecommunication systems designer referred him to a retina specialist, Dr. Avril Greenberg, at [facility] [place]. She is giving him injections in the [...] * Surgical History:?colon surg [facility] 06/2021[facility] Basal cell removal 04/2022rectal surgery 06/2021No [...] Tobacco non-user?Ex-cigarette smoker ???He was born and [place], [place]. He has 3 children, 2 sons and one daughter. He has no grandchildren. He is . 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 He has [...] Pineda MD Date:?07/31 Generated for Carriei rachel/Torrie/eTransmitting on:?09/06/2024 09:08 AM EDT History and Physical Notes * [...]
--- OUTSIDE RECORDS SUMMARY | 2024-09-06 09:08 | XMS_ITS ---
Author Organization Jeovany Pineda III, MD Address [address] [place] [address] Care Team Providers Care Senior Principal Architect Name Role Phone Jeovany Pineda Primary Care [...] Problem Status W/U Status Risk Notes Problem 30511803041457 History of hepatitis C (Z86.19) Active confirmed [...] Date Provider Diagnosis Jeovany Pineda III, MD [address] [place] [address] [place] [address] 02/26/2024 Jeovany Pineda Basal cell carcinoma of [...] checkup Provider Name:Jeovany Pineda, 10/28/2024 11:15:00 AM, [address] [place] [address] [address], [place], [address], Provider Name:Jeovany Pineda, 03/03/2025 09:30:00 AM, [address] [place] [address] [address], [place], [address], Progress Notes * Sukhjinder RODRÍGUEZ KDOB:1965 (59 yo M)Acc No.[id number]:02/26/2024 Progress Notes Patient:?Sukhjinder RODRÍGUEZ Glenda Provider:?Jeovany Pineda MD :1965???Age:59 Y???Sex:Male Bebeto e:02/26/2024 Address:[address] [place] [address] [address] [place] [id number] Subjective: * Chief Complaints: * ???[facility] * HPI: ???Depression Screening:?PHQ-9?Little [...] not macular degeneration, from Dr. Lopez at [facility]. He received Hepatitis A&B and flu shots last month. * ROS:?General/Constitutional:?pain?only normal aches and pains.?Chills?denies.?Fatigue?admits.?Fever?denies.?ENT:?Decreased hearing?denies.?Respiratory:?Cough?denies.?Cardiovascular:?Chest pain with exertion?denies.?Dyspnea on exertion?denies.?Shortness of breath?denies.?Gastrointestinal:?Constipation?denies.?Decreased appetite?denies.?Diarrhea?denies.?Heartburn?denies.?Nausea?denies.?Rectal bleeding?denies.?Vomiting?denies.?Hematology:?bruising?denies.?petechiae?denies.?Swollen glands?none have been noted.?Genitourinary:?Frequent urination?once a night.?Musculoskeletal:?Muscle aches?denies.?Painful joints?denies.?Sciatica?denies.?Weakness?denies.?Skin:?Itching?denies.?Rash?denies.?Skin lesion(s)?denies.?Neurologic:?Difficulty speaking?denies.?Dizziness?denies.?Headache?denies.?Low back pain?denies.?Psychiatric:?Depressed mood?denies.? * Medical History:? * Surgical History:?colon surg [facility] 06/2021[facility] Basal cell removal 2rectal surgery 06/2021No [...] year??No ?Points?0 ?Interpretation?Negative ???He was born and [place], [place]. He has 3 children, 2 sons and one daughter. He has no grandchildren. He is . 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 He has had [...] NOT DETECTED (Ref Range: NOT DETECTED IU/mL) [id number]?A (Ref Range: NOT DETECTED IU/mL) HCV Log [...] * ?UBG 0.2 0.1 - 1.8 * ?LBESSING 1 0.2 - 1.3 * ?BLD Negative Negative - * Procedure Codes:?20243 URINE -NO MICRO * Preventive Medicine:? ??Counseling:?Care [...] Pineda MD Date:?01/30 Generated for Printi ng/Torrie/eTransmitting on:?09/06/2024 09:08 AM EDT History and Physical [...]
== END 2024-09-06 09:25 | disposition home or self-care (01) ==
LOC: HO.HGI 08:55
PROVIDERS: PCP Internal Medicine Medical Oncology; Visit Provider Nurse Practitioner
DX: B19.20 Unspecified viral hepatitis C without hepatic coma (principal)
CPT/HCPCS: 99213

== ENCOUNTER 2025-02-24 09:03 | Outpatient (REF) | payer BC, SELFPAY ==
--- OUTSIDE RECORDS SUMMARY | 2023-10-09 05:08 | XMS_ITS ---
Author Organization Jeovany Pienda III, MD Address [address] [place] [address] [address] [place] [facility] [address] Care Team Providers Care Gristmiller Name Role Phone Dr. Jeovany Pineda III Primary Care Provider [phone] REASON FOR VISIT ? Appointment Social History Sex Assigned At : Social History Observation Description Sex Assigned At Male Encounters Encounter Location Date Provider Diagnosis Jeovany Pineda III, MD [address] [place] [address] [address] [place] [facility] [place] [address] 10/09/2023 Jeovany Pineda Plan Of Treatment Next Appt Details Provider Name:Jeovany Pineda , 03/03/2025 09:30:00 AM, [address] [place] [address] [address], [place], [address], Progress Notes * Sukhjinder RODRÍGUEZ KDOB:1965 (58 yo M)Acc No.[id number]:10/09/2023 Patient: Bhupinder hannahSukhjinder campbell :1965 A ge:58 Y S ex:Male Address:[place], [address] * true * Date: Generated for Carriei rachel/Angelag/eTransmitting on: 09:57 AM EDT
--- OUTSIDE RECORDS SUMMARY | 2023-10-10 13:30 | XMS_ITS ---
Author Organization Jeovany Pineda III, MD Address [address] [place] [address] [place] [address] Care Team Providers Care Pelt Inspector Name Role Phone Dr. Jeovany Pineda III [...] Date Provider Diagnosis Jeovany Pineda III, MD [address] [place] [address] [place] [address] 10/10/2023 Jeovany Pineda Basal cell carcinoma of [...] a day Next Appt Details Provider Name:Jeovany Beaversne , 03/03/2025 09:30:00 AM, [address] [place] [address] [address] [address], [place], [address], Progress Notes * Sukhjinder RODRÍGUEZ KDOB:1965 (60 yo M)Acc No.[id number]:10/10/2023 Progress Notes Patient: Sukhjinder GUZMÁN Provider: Brianna Pineda MD :1965 A ge:58 Y S ex:Male Date:10/10/2023 Address:[address] [place] [address], [address] Subjective: * Chief Complaints: * 1 [...] Surgical History: c olon surgery [facility] 06/2021, [facility] Basal cell removal 07/2021, rectal surgery [...] D aughter(s): alive. S iblings: alive. P aternal Grand Father: , diagnosed with Cancer. 4 [...] dditional Findings: Tobacco Non-User E x-cigarette smoker Bhupinder preciado was born and [place], [place]. He has 3 children, 2 sons and one daughter. He has no grandchildren. He is . 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 He has had [...] lert, oriented. Assessment: * Assessment: 1. B natalie cell carcinoma of nose - C44.311 N [...] MD Date: 0 10/10/2023 Generated for Erickson ramos/Torrie/Dianeitting on: 09:53 AM EDT History and Physical Notes * HPI (History of Present Illness) Category Sub-Category Detail Notes COVID-19 Screening Questions Have you had any new onset fever, chills, cough, congestion, sore throat, shortness of breath, muscle aches?: No Have you been exposed to the virus withi n the last 10 days?: No Have you travelled internationally in [facility] last 10 days?: No Have [...]
--- OUTSIDE RECORDS SUMMARY | 2023-12-05 06:30 | XMS_ITS ---
Author Organization Jeovany Pineda III, MD Address [address] [place] [address] Care Team Providers Care Sleep Technician Name Role Phone Dr. Jeovany Pineda III [...] Date Provider Diagnosis Jeovany Pineda III, MD [address] [place] [address] [place] [address] 12/05/2023 Jeovany Pineda Basal cell carcinoma of [...] son: Annual Exam Provider Name:Jeovany Pineda , 03/03/2025 09:30:00 AM, [address] [place] [address] , [place] [address], [place], [address], Progress Notes * Sukhjinder RODRÍGUEZ KDOB:1965 (58 yo M)Acc No.[id number]:12/05/2023 Progress Notes Patient: Sukhjinder Kay Provider: Brianna Pineda MD :1965 A ge:58 Y S ex:Male Date:12/05/2023 Address:[address] [place], [place] [address], [id number] Subjective: * Chief Complaints: * H epatitis CBenign prosthetic hypertrophyHistory of rectal cancerObesity * HPI: C OVID-19 Screening: He returns for management of several issues. The last day of his hepatitis C treatment was 4 days ago. He says the director geothermal operations told him his hepatitis C titers were negative. He is feeling generally healthy and well. He has been to an nitrocellulose operator who referred him to a retina specialist [...] History: * Surgical History: c olon surgery [facility] 06/2021[facility] Basal cell removal 2rectal [...] x-cigarette smoker Bhupinder preciado was born and [place], [place]. He has 3 children, 2 sons and one daughter. He has no grandchildren. He is . 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 He has had [...] NOT DETECTED (Ref Range: NOT DETECTED IU/mL) [id number] (Ref Range: NOT DETECTED IU/mL) HCV Log PCR <1.18 NOT DETECTED (Ref Range: NOT DETECTED Log IU/mL) <1.18 NOT DETECTED (Ref Range: NOT DETECTED Log IU/mL) 6.06 A (Ref Range: NOT DETECTED Log IU/mL) * Examination: G eneral Examination: GENERAL APPEARANCE: p emilie, well nourished, well developed, in no acute [...] MD Date: 0 12/05/2023 Generated for Erickson ramos/Torrie/eTransmitting on: 1 09:54 AM EDT History and Physical Notes * HPI (History of Present Illness) Category Sub-Category Detail Notes COVID-19 Screening Questions Have you had any new onset fever, chills, cough, congestion, sore throat, shortness of breath, muscle aches?: No Have you been exposed to the virus withi n the last 10 days?: No Have you travelled internationally in [facility] last 10 days?: No Have you been [...]
--- OUTSIDE RECORDS SUMMARY | 2024-02-12 09:24 | XMS_ITS ---
Author Organization Jeovany Pineda III, MD Address [address] [address] Care Team Providers Care Afternoon Babysitter Name Role Phone Dr. Jeovany Pineda III Primary Care Provider [phone] REASON FOR VISIT New Refill Request Medications Medication SIG (Take, Route, Fr equency, Duration) Notes Start Date End Date Status Omeprazole 20 MG 1 capsule Orally Onc e a day for 30 days Active Social History Sex Assigned At : Social History Observation Description Sex Assigned At Male Encounters Encounter Location Date Provider Diagnosis Jeovany Pineda III, MD [address] [place] [address] [place] [address] 02/12/2024 Jeovany Pineda Basal cell carcinoma of [...] Provider Name:Jeovany Pineda , 03/03/2025 09:30:00 AM, [address] [place] [address] [address], [place], [address], Progress Notes * MARCOSSukhjinder KDOB:1965 (59 yo M)Acc No.[id number]:02/12/2024 Patient: Sukhjinder GUZMÁN :1965 A ge:59 Y S ex:Male Address: [place], [address] * Refills Refill Omeprazole Capsule Delayed Release, 20 MG, Orally, 30 Capsule, 1 capsule, Once a day, 30 days, Refills=11 * true * Date: Generated for Erickson ramos/Torrie/Dianeitting on: 1 09:53 AM EDT
--- OUTSIDE RECORDS SUMMARY | 2024-02-26 05:30 | XMS_ITS ---
Author Organization Jeovany Pineda III, MD Address [address] [place] [address] Care Team Providers Care Sticker Hand Name Role Phone Dr. Jeovany Pineda III Primary Care Provider [phone] Allergies Allergen (clinical drug ingredient) Drug/Non Drug [...] Problem Status W/U Status Risk Notes Problem [id number] History of hepatitis C (Z86.19) Active confirmed [...] Date Provider Diagnosis Jeovany Pineda III, MD [address] [place] [address] [place] [address] 02/26/2024 Jeovany Pineda Basal cell carcinoma of [...] OV, Routine checkup Provider Name:Jeovany Pineda , 03/03/2025 09:30:00 AM, [address] [place] [address] DR [facility], [place], [address], Progress Notes * Sukhjinder RODRÍGUEZ KDOB:1965 (59 yo M)Acc No.[id number]:02/26/2024 Progress Notes Patient: Sukhjinder GUZMÁN Provider: Brianna Pineda MD :1965 A ge:59 Y S ex:Male Date:02/26/2024 Address:[address] [place] [address] [facility] [place] [id number] Subjective: * Chief Complaints: * [facility] [place] * HPI: D epression [...] not macular degeneration, from Dr. Lopez at [facility]. He received Hepatitis A&B and flu [...] History: * Surgical History: c olon surgery [facility] [place]21[facility] [place] [facility] Basal cell removal ectal surgery 06/2021No history * Hospitalization/Major Diagno stic [...] N egative Bhupinder preciado was born and [place], [place]. He has 3 children, 2 sons and one daughter. He has no grandchildren. He is . 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 He has [...] NOT DETECTED (Ref Range: NOT DETECTED IU/mL) [id number] A (Ref Range: NOT DETECTED IU/mL) HCV [...] mg/dL) 30 (Ref Range: mg/dL) * Lab:[facility] [place]. Pane l Fast * Collection Date 02/19/2024 [...] Brianna Pineda MD Date: Generated for Erickson ramos/Torrie/Audreyransmitting on: 09:54 AM EDT History and Physical Notes [...] days?: No Have you travelled internationally in last 10 days?: No Have you been [...]
--- OUTSIDE RECORDS SUMMARY | 2024-08-26 06:00 | XMS_ITS ---
Author Organization Jeovany Pineda III, MD Address [address] [place] [address] Care Team Providers Care Tankroom Tender Name Role Phone Dr. Jeovany Pineda III [...] Problem Status W/U Status Risk Notes Problem [id number] Retinal edema (H35.81) Active confirmed . He is not sure what the diagnosis is. Neither is the school counselor s. He apparently has some edema of [...] Date Provider Diagnosis Jeovany Pineda III, MD [address] [place] [address] [address] [place], [place] [id number] 08/26/2024 Jeovany Pineda Basal cell carcinoma of [...] Months, Reason: ov Provider Name:Jeovany Pineda , 03/03/2025 09:30:00 AM, [address] [place] [address] [address], [place], [address], Progress Notes * Sukhjinder RODRÍGUEZ KDOB:1965 (59 yo M)Acc No.[id number]:08/26/2024 Progress Notes Patient: Sukhjinder GUZMÁN Provider: Brianna Pineda MD :1965 A ge:59 Y S ex:Male Date:08/26/2024 Address:[address] [place] [address], [address], [place], [id number] Subjective: * Chief Complaints: * O verweightBPHGallstonesRetinal [...] not describe it very clearly but his school counselor referred him to a retina specialist, Dr. Avril Greenberg, at [facility] on [facility] in [place]. She is giving him injections in the [...] History: * Surgical History: c olon surgery [facility] [place]2021[facility] Basal cell removal ectal surgery 06/2021No [...] x-cigarette smoker Bhupinder preciado was born and [place], [place]. He has 3 children, 2 sons and one daughter. He has no grandchildren. He is . 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 He has had [...] 0.000 (Ref Range: 0.0-0.012 X10*3/uL) * Lab:[facility] * Collection Date 08/24/2024 02/19/2024 02/14/2023 Collection [...] Pineda MD Date: 0 08/26/2024 Generated for Erickson ramos/Torrie/Audreyransmitting on: 1 09:56 AM EDT History and Physical Notes * [...]
--- OUTSIDE RECORDS SUMMARY | 2024-10-28 07:15 | XMS_ITS ---
Author Organization Jeovany Pineda III, MD Address [address] [place] [address] Care Team Providers Care Derrick Boat Captain Name Role Phone Dr. Jeovany Pineda III [...] Date Provider Diagnosis Jeovany Pineda III, MD [address] [place] [address] [place] [address] 10/28/2024 Jeovany Pineda Basal cell carcinoma of [...] Provider Name:Jeovany Pineda , 03/03/2025 09:30:00 AM, [address] [place] [address], [place] [address], [place], [address], Progress Notes * Sukhjinder RODRÍGUEZ KDOB:1965 (59 yo M)Acc No.[id number]:10/28/2024 Progress Notes Patient: Sukhjinder GUZMÁN Provider: Brianna Pineda MD :1965 A ge:59 Y S ex:Male Date:10/28/2024 Address:[address] [place] [address], [address] Subjective: * Chief Complaints: * M ackey E edemaTime prostatic hypertrophyHistory of rectal cancerObesityHistory of hepatitis C * HPI: C OVID-19 Screening: Bhupinder preciado returns for medical management. He has been receiving intraocular injections from ophthalmology for macular any edema. They have beginning to get him the shots less frequently. He has been to the school photograph editor who says he has rosacea and ordered treatment. He has not had any symptoms suggestive of recurrent rectal cancer. He denies any hematochezia. He is feeling generally healthy and well, maintaining his weight.The school photograph editor did not think your red spot on [...] History: * Surgical History: c olon surgery [facility] [place] 06[place]2021[facility] [place] [facility] Basal cell removal 2rectal surgery 06/2021No [...] x-cigarette smoker Bhupinder preciado was born and [place], [place]. He has 3 children, 2 sons and one daughter. He has no grandchildren. He is . 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 He has [...] MD Date: 0 10/28/2024 Generated for Carriei rachel/Torrie/eTransmitting on: 09:55 AM EDT History and Physical Notes * [...]
--- OUTSIDE RECORDS SUMMARY | 2025-02-24 09:56 | XMS_ITS | Clinical Summary ---
Author Organization [facility] Address [address] [facility] [address] [place] [address] Phone Care Team Providers Care Music Theory Professor Name Role Phone Jeovany Pineda MD Primary Care Provider [phone] Allergies No known active allergies Medications dicyclomine (BENTYL) 10 MG capsule Take 20 mg by mouth 4 (four) times a day before meals and nightly. Active omeprazole (PRILOSEC) 20 mg TbEC Take 20 mg by mouth daily before breakfast. Active nicotine polacrilex (COMMIT) [address] 2 mg inside cheek as needed for smoking cessation. Active multivitamins with minerals- folic acid-lycopene (MEN'S ONE-A-DAY) 400-20-300 mcg Tab Take 1 tablet by mouth daily. Active Active Problems Problem Noted Date Diagnosed Date Malignant neoplasm of rectum 06/17/2021 Cancer Staging:Clinical stage from 06/10/2021:Stage I(cT1, cN0, cM0) - Signed by Owen Kwan MD on 06/17/2021 Family History Medical History Relation Comments Cancer Maternal Grandfather Cancer Mother Relation Status Comments Maternal Grandfather Mother Alive Social History Tobacco Use Types Packs/Day Years Used Date Smoking Tobacco: Former Cigarettes Q uit: 06/17/2018 Smokeless Tobacco: Never Alcohol Use Standard Drinks/Week Comments Not Currently 0 (1 standard drink = 0.6 oz pur e alcohol) Education Answer Date Recorded Are you interested in more education? Not on soila e 08/27/2022 Are you concerned about learning? Not on file 08/27/2022 No 08/27/2022 No 08/27/2022 Digital Access Answer Date Recorded No 09/25/2022 No 09/25/2022 No 09/25/2022 Reliable internet access at home? Not on file 09/25/2022 Device with a working camera? Not on file Sex and Gender Information Value Date Recorded Sex Assigned at Not on file Legal Sex Male 11:22 AM EST Gender Identity Not on file Sexual Orientation Not on file Last Filed Vital Signs Vital Sign Reading Time Taken Comments Blood Pressure 144/82 06/17/2021 9:49 AM EST Pulse 71 06/17/2021 9:49 AM EST Temperature - - Respiratory Rate - - Oxygen Saturation 97% 06/17/2021 9:49 AM EST Inhaled Oxygen Concentration - - Weight 88.4 kg (194 lb 12.8 oz) 06/17/2021 9:49 AM EST Height - - Body Mass Index - - Plan of Treatment Health Maintenance Due Date Last Done Comments Adult Td,Tdap Booster 1965 LIPID PANEL 1965 DEPRESSION SCREENING 1977 SMOKING Hx and SMOKELESS TOB ACCO SCREENING 1978 HEPATITIS C SCREENING 1983 HIV ONE-TIME SCREENING (18-6 5 YEARS) 1983 PNEUMOCOCCAL VACCINES (50+ y ears) (1 of 2 - PCV) 02/04/1984 ZOSTER VACCINES (1 of 2) 02/04/1984 COLOGUARD 2010 COLONOSCOPY 2010 COLORECTAL CANCER SCREENING 2010 FIT TEST 2010 FOBT 2010 SIGMOIDOSCOPY 2010 VIRTUAL COLONOSCOPY 2010 INFLUENZA VACCINE (#1) 2024 COVID-19 VACCINE ( - 2024-2 6 season) 2024 RSV VACCINE (1 - 1-dose 75+ series) 02/04/2040 HEPATITIS A VACCINES Aged Out No long er eligible based on patient's age to complete this topic HIB VACCINES Aged Out No longer eligi ble based on patient's age to complete this topic MENINGOCOCCAL VACCINES (ACWY) Aged Out No longer eligible based on patient's age to complete this topic MENINGOCOCCAL VACCINES (B) Aged Out N o longer eligible based on patient's age to complete this topic Medical Devices Not on file [place] [address] [place] [address] [place] [address] [facility] Care Teams Music Theory Professor Relationship Specialty Start Date End Date Jeovany Pineda MD [address] [place] [address] [place] [address] PCP - General Medical Oncology 06/11/21 Additional Source Comments The information contained in this document represents components of the legal health record. It is not the complete legal health record.[facility]
--- OUTSIDE RECORDS SUMMARY | 2025-02-24 09:56 | XMS_ITS | Encounter Summary ---
Author Organization [facility] Address [address] [facility] [address] [place] [address] Phone Care Team Providers Care Grader Meat Name Role Phone Jeovany Pineda MD Primary Care Provider [phone] Encounter Details Date Type Department Care Team (Late st Contact Info) Description 06/14/2021 Ancillary Orders [facility],Outside Imaging [address] [place] [address] System, Provider Not In, [facility] [address] [address] Social History Tobacco Use Types Packs/Day Years Used Date Smoking Tobacco: Never Assessed Sex and Gender Information Value Date Recorded Sex Assigned at Not on file Legal Sex Male 11:22 AM EST Gender Identity Not on file Sexual Orientation Not on file documented as of this encounter Plan of Treatment Not on file documented as of this encounter Results * NM PET Whole Body Outside (No Interpretation) (06/10/2021 12:00 AM EST) Narrative SYSTEMGENERATED, DOCUMENTATION - 06/14/2021 11:58 AM EST This study is for PACS storage only and not for interpretation. us Provider Not In System PhD IMG OUTSIDE IMAGING W /OUT INTERPRETATION Final Result * MRI Pelvis (Bone) Outside (No Interpretation) (05/28/2021 12:00 AM EST) Narrative SYSTEMGENERATED, DOCUMENTATION - 06/14/2021 11:59 AM EST This study is for PACS storage only and not for interpretation. us Provider Not In System PhD IMG OUTSIDE IMAGING W /OUT INTERPRETATION Final Result documented in this encounter Visit Diagnoses Not on filedocumented in this encounter Care Teams Grader Meat Relationship Specialty Start Date End Date Jeovany Pineda MD [address] [place] [address] [place] [address] PCP - General Medical Oncology 06/11/21 documented as of this encounter Additional Source Comments The information contained in this document represents components of the legal health record. It is not the complete legal health record.[facility]
--- OUTSIDE RECORDS SUMMARY | 2025-02-24 09:57 | XMS_ITS | Patient Health Record ---
Author Organization Jeovany Pineda III, MD Address [address] [place] [address] Care Team Providers Care Heat Treater Head Name Role Phone Dr. Jeovany Pineda III Primary Care Provider [phone] Allergies Allergen (clinical drug ingredient) Drug/Non Drug Allergy documented on EMR Reaction Allergy Type Onset Date Status No Known Drug Allergy Unknown Drug Allergy Active No Known Food Allergy Unknown Drug Allergy Active Results Component [...] 0.2 - 1.3 BLD Negative Negative - Complete Blood Count Auto Di ff Reviewed date:08/26/2024 10:09:04 AM Interpretation: Performing Lab:[facility], [address] [place] [id number] Notes/Report: White Blood Count 6.0 4.8-10.8 X10*3/uL [...] NRBC Abs Auto 0.000 0.0-0.012 X10*3/uL Comprehensive [place]. Panel Fa st Reviewed date:08/26/2024 10:09:04 AM Interpretation: Performing Lab:[facility], [address] [place] [phone] Notes/Report: Sodium 139 135-145 mmol/L Potassium 4.4 [...] Panel Reviewed date:08/26/2024 10:09:04 AM Interpretation: Performing Lab:[address] [id number] Notes/Report: Triglycerides 105 <150 mg/dL Desirable Triglyceride: [...] Panel Reviewed date:09/03/2024 02:47:35 PM Interpretation: Performing Lab:[address] [address] Notes/Report: Bilirubin Total 0.4 0.0-1.0 mg/dL Bilirubin Direct 0.2 0.0-0.5 mg/dL Aspartate Amino Transferase 31 5-37 U/L Alanine Aminotransferase 22 0-40 U/L Total Protein 7.4 6.5-8.0 g/dL Albumin Level 4.2 3.5-5.0 g/dL Alkaline Phosphatase 44 39-117 U/L Hep C Viral Load Reviewed date:09/03/2024 02:47:35 PM Interpretation: Performing Lab:[address] [address] Notes/Report: HepC Viral Load <15 NOT DETECTED NOT DETECTED IU/mL HCV Log PCR <1.18 NOT DETECTED NOT DETECTED Log IU/mL For additional information, please refer to http://education.[employer]/faq/FA Q22v1 (This link is being provided for informational/ educational purposes only.) THIS TEST WAS PERFORMED AT: [facility] [address] [place] [phone] RJ PALACIOS MD Reason For Referral Reason Consult and Treat New lesion on tip of nose Diagnosis 1 Lesion of nose (J34. 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 Patient was made aware he does have to call and schedule his appointment, Ani Perez 08/27/2024 03:53:05 PM > Patient is scheduled for 09/16/24 @ 9am in the [facility] Referral Priority Routine Referral Appointment Date 09/16/2024 Medications Medication SIG (Take, Route, Fr equency, Duration) Notes Start Date End Date Status Nicotine Mini 2 MG as directed Mouth/Throat Active Dicyclomine HCl 20 MG 1 tablet Orally Th ree times a day Active Omeprazole 20 MG 1 capsule Orally Once a day Active Immunizations Vaccine Route Administration [...] Problem Status W/U Status Risk Notes Problem 1227408 Former smoker (Z87.891) Active confirmed He has a planned to prevent relapse and times of stress and illness. Problem Overweight (431676709) Overweight (E66.3) Active confirmed His body mass index is 26. He has gained 4 pounds. We reviewed his diet and nutrition and made a plan to lose weight at a rate of one half of a pound per week. Problem [id number] Obesity (BMI 30.0-34.9) (E66.9) Active confirmed His body mass index is slightly over 30. We discussed diet and nutrition. We made a plan to lose weight at a rate of one half of a pound per week through a diet restricted in fat calories and sodium combined with regular physical activity. 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 He is not sure what the diagnosis is. Neither is the ophthalmologis ts. He apparently has some edema of the retinal vessels and is being treated with intraocular injections. Problem 59958200 Calculus of gallbladder without cholecystitis without obstruction (K80.20) Active confirmed He continues to be asymptomatic. Problem Benign prostatic hyperplasia (948041590) BPH (benign prostatic hyperplasia) (N40.0) Active confirmed He rises from sleep once a night on the average. We reviewed several lifestyle modifications he could make to reduce this. Problem 946308662 Rectal cancer (C20) Active confirmed There was no sign of recurrent disease on today's examination. He was recently restaged by surgical oncology and remains in remission from the rectal cancer. Problem 223463777 Elevated total protein (R77.8) Active confirmed His total protein has returned to normal.He has remained normal and this problem will be removed from his problem list. Problem 67978956101013 History of hepatitis C (Z86.19) Active confirmed He has been treated and his viral titers are now 0. Problem 403729249 Basal cell carcinoma of nose (C44.311) Active confirmed The lesion mar s been removed without recurrence. Scarring is minimal. He has had a very good cosmetic result.There is now a scab on the tip of his nose . He was referred back to dermatology for evaluation.The y did not think this was residual cancer. Problem 373963760 Family history of prostate cancer (Z80.42) Active confirmed He has a strong family history of prostate cancer. His PSA is 4.4. This will be followed carefully. Vital Signs Heart Rate 65 /min 10/28/2024 Temperature 98.2 degrees Fahrenheit 10/28/2024 Blood pressure diastolic 76 mm Hg 10/28/2024 Height 67 in 10/28/2024 Blood pressure systolic 133 mm Hg 10/28/2024 Weight 168 lbs 10/28/2024 BMI 26.31 kg/m2 10/28/2024 Encounters Encounter Location Date Provider Diagnosis Jeovany Pineda III, MD [address] [place] [address] [address] [place] [address] 02/26/2024 Jeovany Pineda Basal cell carcinoma of nose C44.311 ; Rectal cancer C20 ; Overweight E66.3 ; BPH (benign prostatic hyperplasia) N40.0 ; Calculus of gallbladder without cholecystitis without obstruction K80.20 ; Elevated total protein R77.8 ; Former smoker Z87.891 and History of hepatitis C Z86.19 Jeovany Pineda III, MD [address] [place] [address] [place] [address] 08/26/2024 Jeovany Pineda Basal cell carcinoma of nose C44.311 ; Overweight E66.3 ; Calculus of gallbladder without cholecystitis without obstruction K80.20 ; Rectal cancer C20 ; History of hepatitis C Z86.19 ; Elevated total protein R77.8 ; Former smoker Z87.891 and Retinal edema H35.81 Jeovany Pineda III, MD [address] [place] [address] [place] [phone] 10/28/2024 Jeovany Pineda Basal cell carcinoma of nose C44.311 ; Rectal cancer C20 ; Overweight E66.3 ; Calculus of gallbladder without cholecystitis without obstruction K80.20 ; BPH (benign prostatic hyperplasia) N40.0 ; History of hepatitis C Z86.19 ; Retinal edema H35.81 and Former smoker Z87.891 Assessments Encounter Date Diagnosis (ICD Code) Assessment Notes Treat ment Notes Treatment Clinical Notes 02/26/2024 Rectal cancer (ICD-10 - C20) There [...] was referred back to dermatology for evaluation. 10/28/2024 Rectal cancer (ICD-10 - C20) There was no sign of recurrent disease on today's examination. He was recently restaged by surgical oncology and remains in remission from the rectal cancer. 10/28/2024 Basal cell carcinoma of nose (ICD-10 - C44.311) The lesion has been removed without recurrence. Scarring is minimal. He has had a very good cosmetic result.There is now a scab on the tip of his nose . He was referred back to dermatology for evaluation.They did not think this was residual cancer. 02/26/2024 Overweight (ICD-10 - E66.3) His body mass index is 25.06. We discussed his weight loss strategy. We set a target BMI for 22.5. 08/26/2024 Calculus of gallbladder without cholecystitis without obstruction (ICD-10 - K80.20) He continues to be asymptomatic. 10/28/2024 Overweight (ICD-10 - E66.3) His body mass index is 26. He has gained 4 pounds. We reviewed his diet and nutrition and made a plan to lose weight at a rate of one half of a pound per week. 02/26/2024 BPH (benign prostatic hyperplasia) (ICD-10 - N40.0) He rises from sleep once a night on the average. We reviewed several lifestyle modifications he could make to reduce this. 08/26/2024 Rectal cancer (ICD-10 - C20) There was no sign of recurrent disease on today's examination. He was recently restaged by surgical oncology and remains in remission from the rectal cancer. 10/28/2024 Calculus of gallbladder without cholecystitis without obstruction (ICD-10 - K80.20) He continues to be asymptomatic. 02/26/2024 Calculus of gallbladder without cholecystitis without obstruction (ICD-10 - K80.20) 08/26/2024 History of hepatitis C (ICD-10 - Z86.19) He has been treated and his viral titers are now 0. 10/28/2024 BPH (benign prostatic hyperplasia) (ICD-10 - N40.0) He rises from sleep once a night on the average. We reviewed several lifestyle modifications he could make to reduce this. 02/26/2024 Elevated total protein (ICD-10 - R77.8) His total protein has returned to normal. 08/26/2024 Elevated total protein (ICD-10 - R77.8) His total protein has returned to normal.He has remained normal and this problem will be removed from his problem list. 10/28/2024 History of hepatitis C (ICD-10 - Z86.19) He has been treated and his viral titers are now 0. 02/26/2024 Former smoker (ICD-10 - Z87.891) He has a planned to prevent relapse and times of stress and illness. 08/26/2024 Former smoker (ICD-10 - Z87.891) He has a planned to prevent relapse and times of stress and illness. 10/28/2024 Retinal edema (ICD-10 - H35.81) . He is not sure what the diagnosis is. Neither is the ophthalmologists. He apparently has some edema of the retinal vessels and is being treated with intraocular injections. 02/26/2024 History of hepatitis C (ICD-10 - [...] of stress and illness. Plan Of Treatment Pending Test Test Name Order Date PROFILE, FASTING (COMPREHENSIVE METABOLI C) 03/10/2021 PROFILE, FASTING (COMPREHENSIVE METABOLI C) 02/14/2022 PROFILE, FASTING (COMPREHENSIVE METABOLI C) 02/20/2023 PROFILE, FASTING (COMPREHENSIVE METABOLI C) 10/11/2021 PROFILE, FASTING (COMPREHENSIVE METABOLI C) 11/21/2022 PROFILE, FASTING (COMPREHENSIVE METABOLI C) 10/28/2024 PROFILE, FASTING (COMPREHENSIVE METABOLI C) 04/14/2021 PROFILE, RANDOM (COMPREHENSIVE METABOLIC ) 06/12/2023 PROFILE, RANDOM (COMPREHENSIVE METABOLIC ) 05/16/2022 HEMOGLOBIN A1C (GLYCOHEMOGLOBIN) 021 LIPID PANEL 02/14/2022 LIPID PANEL 03/10/2021 LIPID PANEL 11/21/2022 GGT 06/12/2023 FERRITIN 03/10/2021 PSA, TOTAL 02/14/2022 PSA, TOTAL 10/11/2021 PSA, TOTAL 10/28/2024 PSA, TOTAL 11/21/2022 PSA, TOTAL 03/10/2021 PSA, TOTAL+FREE 05/16/2022 CEA 03/10/2021 CBC w DIFF 04/14/2021 CBC w DIFF 11/21/2022 CBC w DIFF 06/12/2023 CBC w DIFF 03/10/2021 CBC w DIFF 05/16/2022 CBC w DIFF 02/14/2022 CBC w DIFF 10/11/2021 CBC w DIFF 10/28/2024 HEPATITIS A,B,C PROFILE 06/12/2023 US ABD 03/10/2021 VITAMIN D 25-OH TOTAL 03/10/2021 CBC WITH AUTO DIFF 02/20/2023 Lipid Panel 10/11/2021 Lipid Panel 10/28/2024 Lipid Panel 04/14/2021 Lipid Panel 02/20/2023 Next Appt Details Provider Name:Jeovany Pineda , 03/03/2025 09:30:00 AM, [address] [place] [address] [address], [place], [address], Insurance Providers Payer Name Payer Address Payer Phone Subscriber Number Group Number Insured Name Patient Relationship to Insured Coverage Start Date Coverage End Date [facility] [address] [place], [place] [id number] [phone] [id number] Sukhjinder Rodríguez Self - patient is the insured Medical (General) History Medical History History ICD Code Cholelithiasis Basal cell carcinoma of the nose Obesity Benign prostatic hypertrophy Stage I adenocarcinoma of the rectum, tr ansanally removed Overweight Rectal cancer in remission Hepatitis C 2023 Former smoker Ocular injections Surgical History Surgery Date(Month/Year) No history rectal surgery 06/2021 [facility] Basal cell removal 07/31 022 colon surgery [facility] 06/2021 Hospitalization History Reason Date(Month/Year) No history Resection rectal cancer 06/2021
[2025-02-24 10:38] LABS: MANUAL DIFF FLAG NO
[2025-02-24 10:46] LABS: Hematocrit 41.8 % (42.0-52.0); Hemoglobin 13.9 g/dl (14.0-18.0); Imm Gran Abs Auto 0.02 X10*3/uL (0.00-0.03); Imm Gran Pct Auto 0.3 % (0.0-0.4); Lymphocytes Absolute Auto 3.0 X10*3/uL (1.2-4.9); Mean Corpuscular HGB Conc 33.3 g/dl (31.0-36.0); Mean Corpuscular Hemoglobin 31.0 pg (27.0-33.0); Mean Corpuscular Volume 93.3 fL (80.0-98.0); NRBC Abs Auto 0.000 X10*3/uL (0.0-0.012); NRBC Pct Auto 0.0 /100WBC (0.0-0.2); Platelet Count 183 X10*3/uL (160-400); Red Blood Count 4.48 X10*6/uL (4.60-5.80); White Blood Count 7.7 X10*3/uL (4.8-10.8)
[2025-02-24 11:17] LABS: Alanine Aminotransferase 25 U/L (0-40); Albumin Level 4.5 g/dL (3.5-5.0); Alkaline Phosphatase 47 U/L (39-117); Anion Gap 10 (12-20); Aspartate Amino Transferase 42 U/L (5-37); Blood Urea Nitrogen 14 mg/dL (9-16); Calcium 9.4 mg/dL (8.4-10.2); Carbon Dioxide 29 mmol/L (22-29); Chloride 106 mmol/L (96-108); Cholesterol 204 mg/dL (<200); Estimated Glomerular Filt Rate > 60; HDL Cholesterol 37 mg/dL (>40); Potassium 4.3 mmol/L (3.3-5.1); Sodium 141 mmol/L (135-145); Total Protein 7.9 g/dL (6.5-8.0); Triglycerides 158 mg/dL (<150)
[2025-02-24 11:26] LABS: Prostate Specific Antigen 2.14 ng/mL (<0.05-4.0)
== END 2025-02-24 09:04 | disposition home or self-care (01) ==
LOC: HO.10HDL 09:03
PROVIDERS: Visit Provider Internal Medicine Medical Oncology
DX: N40.0 Benign prostatic hyperplasia without lower urinary tract symptoms (principal); R77.8 Other specified abnormalities of plasma proteins; E66.3 Overweight; R79.89 Other specified abnormal findings of blood chemistry; Z12.5 Encounter for screening for malignant neoplasm of prostate
CPT/HCPCS: 36415; 80053; 80061; 84153; 85025

== ENCOUNTER 2025-03-04 07:35 | Outpatient (REF) | payer BC, SELFPAY ==
--- OUTSIDE RECORDS SUMMARY | 2023-10-09 04:08 | XMS_ITS ---
Author Organization Jeovany Pineda III, MD Address [address] [place] [address] [place] [address] Care Team Providers Care Credit Review Officer Name Role Phone Dr. Jeovany Pineda III Primary Care Provider REASON FOR VISIT ? Appointment Social History Sex Assigned At : Social History Observation Description Sex Assigned At Male Encounters Encounter Location Date Provider Diagnosis Jeovany Pineda III, MD [address] [place] [address] [place] [address] 10/09/2023 Jeovany Pineda Plan Of Treatment Next Appt Details Provider Name:Jeovany Pineda , 03/11/2025 09:30:00 AM, [address] [place] [address] [place], [address], Provider Name:Joevany Pineda , 03/05/2026 09:30:00 AM, [address] [place] [address] [place], [address], Progress Notes * Sukhjinder RODRÍGUEZ KDOB:1965 (58 yo M)Acc No.[id number]:10/09/2023 Patient: Bhupinder black Sukhjinder Doshi :1965 A ge:58 Y S ex:Male Address:[place], [address] * true * Date: Generated for Printi ng/Faxing/eTransmitting on: 05/04/2024 07:40 AM EST
--- OUTSIDE RECORDS SUMMARY | 2023-10-10 12:30 | XMS_ITS ---
Author Organization Jeovany Pineda III, MD Address [address] [place] [address] [place] [address] Care Team Providers Care [employer] Product Consultant Name Role Phone Dr. Jeovany Pineda III Primary Care Provider Allergies Allergen (clinical drug ingredient) Drug/Non Drug Allergy documented on EMR Reaction Allergy Type Onset Date Status No Known Drug Allergy Unknown Drug Allergy Active REASON FOR VISIT follow up Medications Medication SIG (Take, Route, Fr equency, Duration) Notes Start Date End Date Status Nicotine Mini 2 MG as directed Mouth/Throat Active Omeprazole 20 MG as directed Oral Once a day Active Dicyclomine HCl 20 MG 1 tablet Orally Th ree times a day Active Social History Tobacco Use: Social History Observation Description Date Details (start date - stop date) Former Smoker NA - NA Sex Assigned At : Social History Observation Description Sex Assigned At Male Tobacco Use/Smoking Question Answer Notes Patient is a former smoker How long has it been since you last smoked? 5-10 years Additional Findings: Tobacco Non-User Ex-cigaret te smoker Encounters Encounter Location Date Provider Diagnosis Jeovany Pineda III, MD [address] [place] [address] [place] [address] 10/10/2023 Jeovany Pineda Basal cell carcinoma of nose C44.311 Assessments Encounter Date Diagnosis (ICD Code) Assessment Notes Treatment Notes Treatment Clinical Notes 10/10/2023 Basal cell carcinoma of nose (ICD-10 - C44.311) The lesion has been removed without recurrence. Scarring is minimal. He has had a very good cosmetic result. Plan Of Treatment Medication Medication Name Sig Start Date Stop Date Notes Nicotine Mini 2 MG as directed Mouth/Throat Omeprazole 20 MG as directed Oral Once a day Dicyclomine HCl 20 MG 1 tablet Orally Three times a day Next Appt Details Provider Name:Jeovany Pineda , 03/11/2025 09:30:00 AM, [address] [place] [address] [address], [place], [address], Provider Name:Jeovany Pineda , 03/05/2026 09:30:00 AM, [address] [place] [address] [address], [place], [phone], Progress Notes * Sukhjinder RODRÍGUEZ KDOB:1965 (60 yo M)Acc No.[id number]:10/10/2023 Progress Notes Patient: Sukhjinder GUZMÁN Provider: Brianna Pineda MD :1965 A ge:58 Y S ex:Male Date:10/10/2023 Address:[address] [place] [address], [address] Subjective: * Chief Complaints: * 1 . Follow up. * HPI: C OVID-19 Screening: Questions H ave you had any new onset fever, chills, cough, congestion, sore throat, shortness of breath, muscle aches? N o H ave you been exposed to the virus within the last 10 days? N o H ave you travelled internationally in the last 10 days? N o H ave you been exposed to COVID-19 in the past? N o * ROS: G eneral/Constitutional: pain o nly normal aches and pains. C hills d enies.?Fatigue a dmits. F ever d enies. E NT: Decreased hearing d enies. R espiratory: Cough d enies. C ardiovascular: Chest pain with exertion d enies. D yspnea on exertion?denies. S hortness of breath d enies. G astrointestinal: Constipation d enies. D ecreased appetite d enies.?Diarrhea d enies. H eartburn d enies. N ausea d enies. R ectal bleeding?denies. V omiting d enies. H ematology: bruising d enies. p etechiae d enies. S wollen glands n one have been noted. G enitourinary: Frequent urination d enies. M usculoskeletal: Muscle aches d enies. P ainful joints d enies. S ciatica d enies. W eakness d enies. S kin: Itching d enies. R criss d enies. S kin lesion(s)?denies. N eurologic: Difficulty speaking d enies. D izziness d enies.?Headache d enies. L ow back pain d enies. P sychiatric: Depressed mood d enies. * Medical History: C holelithiasis, Basal cell carcinoma of the nose, Obesity, Benign prostatic hypertrophy, Stage I adenocarcinoma of the rectum, transanally removed, Overweight. * Surgical History: c olon surgery [facility] 06/2021, [facility] Basal cell removal 07/2021, rectal surgery 06/2021. * Hospitalization/Major Diagno stic Procedure: R esection rectal cancer 06/2021. * Family History: F ather: 84 yrs, January 2021, coronary artery disease, congestive heart failure. Stage IV chronic kidney disease, diagnosed with CVD. M other: alive 81 yrs, Diabetes mellitus rheumatoid arthritis, COPD, no history of cancer, diagnosed with DM. S on(s): alive. D aughter(s): alive. S iblings: alive. P ital Grand Father: , diagnosed with Cancer. 4 brother(s) , 1 sister(s) - healthy. 2 son(s) , 1 daughter(s) - healthy. . His father of coronary artery disease, congestive heart failure and renal failure. His mother was diabetic with rheumatoid arthritis and COPD. There is no family history of breast or ovarian cancer. There is no family history of pancreatic cancer colon cancer. His father had prostate cancer as does his brothers Raúl and Scott. One of his 4 brothers is diabetic. His sister has COPD. His children are healthy and well. He is not aware of any family history of mental illness. He is not aware of any family history of addiction or substance abuse. * Social History: T obacco Use: T obacco Use/Smoking P atient is a f ormer smoker H ow long has it been since you last smoked??5-10 years A dditional Findings: Tobacco Non-User E x-cigarette smoker H e was born and [place], [place]. He has 3 children, 2 sons and one daughter. He has no grandchildren. He is . 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 He has had no exposures to toxic materials or asbestos. * Medications: T aking Nicotine Mini 2 MG Lozenge as directed Mouth/Throat , Taking Dicyclomine HCl 20 MG Tablet 1 tablet Orally Three times a day , Taking Omeprazole 20 MG Capsule Delayed Release as directed Oral Once a day , Medication List reviewed and reconciled with the patient * Allergies: N o Known Drug Allergy. Objective: * Vitals: * Examination: G eneral Examination: GENERAL APPEARANCE: p leasant, well nourished, well developed, in no acute distress, calm and relaxed. HEAD: a traumatic, normocephalic. EYES: e louis, perrla, anicteric, conjugate. EARS: n ormal. NOSE: s eptum intact. ORAL CAVITY: n ormal, unremarkable. NECK/THYROID: n o jugular venous distention, no carotid bruit, thyroid normal. LYMPH NODES: n o enlarged lymph nodes,spleen normal. SKIN: n o suspicious lesions, anicteric. HEART: n o clicks, gallops, murmurs, or rubs, regular rhythm, S1, S2 normal, no s3, or vascular bruits. LUNGS: c lear to auscultation . BREASTS: no masses palpable bilaterally. ABDOMEN: b owel sounds normal, no ascites, no organomegaly, no mass. RECTAL EXAM: n ot examined. MUSCULOSKELETAL: e xtremities unremarkable, no clubbing, cyanosis or edema. PERIPHERAL PULSES: n ormal. NEUROLOGIC: a lert and oriented, cranial nerves 2-12 grossly intact, deep tendon reflexes 2+ symmetrical, motor strength normal upper and lower extremities, sensory exam intact. PSYCH: a lert, oriented. Assessment: * Assessment: 1. B antalie cell carcinoma of nose - C44.311 N otes :The lesion has been removed without recurrence. Scarring is minimal. He has had a very good cosmetic result. Plan: * Treatment: * Images: * The named appointment provid er may or may not be the originator of this progress note, and it is not deemed complete until electronically signed by the appointment provider. Sign off status: Pending * Provider: Brianna Pineda MD Date: 0 10/10/2023 Generated for Erickson ramos/Torrie/Zenia on: 05/04/2024 07:39 AM EST History and Physical Notes * HPI (History of Present Illness) Category Sub-Category Detail Notes COVID-19 Screening Questions Have you had any new onset fever, chills, cough, congestion, sore throat, shortness of breath, muscle aches?: No Have you been exposed to the virus withi n the last 10 days?: No Have you travelled internationally in [facility] last 10 days?: No Have you been exposed to COVID-19 in the past?: No Examination Category Sub-Category Detail Notes General Examination GENERAL APPEARANCE: pleasant , well nourished, well developed, in no acute distress, calm and relaxed HEAD: atraumatic, normocep halic EYES: eomi, perrla, anicte sarah, conjugate EARS: normal NOSE: septum intact NECK/THYROID: no jugular venous di stention, no carotid bruit, thyroid normal HEART: no clicks, gallops, murmurs, or rubs, regular rhythm, S1, S2 normal, no s3, or vascular bruits LUNGS: clear to auscultatio n ABDOMEN: bowel sounds normal, no ascites, no organomegaly, no mass NEUROLOGIC: alert and oriented, cranial nerves 2-12 grossly intact, deep tendon reflexes 2+ symmetrical, motor strength normal upper and lower extremities, sensory exam intact SKIN: no suspicious lesion s, anicteric PERIPHERAL PULSES: normal BREASTS: no masses palpable b ilaterally MUSCULOSKELETAL: extremities unremark able, no clubbing, cyanosis or edema LYMPH NODES: no enlarged lymph no samuel,spleen normal RECTAL EXAM: not examined PSYCH: alert, oriented ORAL CAVITY: normal, unremarkable
--- OUTSIDE RECORDS SUMMARY | 2023-12-05 05:30 | XMS_ITS ---
Author Organization Jeovany Pineda III, MD Address [address] [place] [address] Care Team Providers Care Center Sales And Service Associate Name Role Phone Dr. Jeovany Pineda III Primary Care Provider [phone] Allergies Allergen (clinical drug ingredient) Drug/Non Drug Allergy documented on EMR Reaction Allergy Type Onset Date Status No Known Drug Allergy Unknown Drug Allergy Active REASON FOR VISIT Hepatitis C, Benign prosthetic hypertrophy, History of rectal cancer, Obesity Medications Medication SIG (Take, Route, Fr equency, Duration) Notes Start Date End Date Status Omeprazole 20 MG as directed Oral Once a day Active Dicyclomine HCl 20 MG 1 tablet Orally Th ree times a day Active Nicotine Mini 2 MG as directed Mouth/Throat Active Social History Tobacco Use: Social History Observation Description Date Details (start date - stop date) Former Smoker NA - NA Sex Assigned At : Social History Observation Description Sex Assigned At Male Tobacco Use/Smoking Question Answer Notes Patient is a former smoker How long has it been since you last smoked? 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 Scarring is minimal. He has had a very good cosmetic result. 12/05/2023 Overweight (ICD-10 - E66.3) His body mass index is 25.06. We discussed his weight loss strategy. We set a target BMI for 22.5. 12/05/2023 BPH (benign prostatic hyperplasia) (ICD-10 - N40.0) He rises from sleep once a night on the average. We reviewed several lifestyle modifications he could make to reduce this. 12/05/2023 Hepatitis (ICD-10 - K75.9) The hepatitis C is now in remission with negative titers. 12/05/2023 Former smoker (ICD-10 - Z87.891) He has a planned to prevent relapse and times of stress and illness. 12/05/2023 Rectal cancer (ICD-10 - C20) There was no sign of recurrent disease on today's examination. He was recently restaged by surgical oncology and remains in remission from the rectal cancer. Plan Of Treatment Medication Medication Name Sig Start Date Stop Date Notes Omeprazole 20 MG as directed Oral Once a day Dicyclomine HCl 20 MG 1 tablet Orally Three times a day Nicotine Mini 2 MG as directed Mouth/Throat Next Appt Details Follow Up: As Scheduled, Zaida son: Annual Exam Provider Name:Jeovany Pineda , 03/11/2025 09:30:00 AM, [address] [place] [address] [address], [place], [address], Provider Name:Jeovany Pineda , 03/05/2026 09:30:00 AM, [address] [place] [address] [address], [place], [address], Progress Notes * Sukhjinder RODRÍGUEZ KDOB:1965 (58 yo M)Acc No.[id number]:12/05/2023 Progress Notes Patient: Sukhjinder Kay Provider: Brianna Pineda MD :1965 A ge:58 Y S ex:Male Date:12/05/2023 Address:[address], [id number] Subjective: * Chief Complaints: * H epatitis CBenign prosthetic hypertrophyHistory of rectal cancerObesity * HPI: C OVID-19 Screening: He returns for management of several issues. The last day of his hepatitis C treatment was 4 days ago. He says the office machine installer told him his hepatitis C titers were negative. He is feeling generally healthy and well. He has been to an plastic sewer who referred him to a retina specialist because of swelling in the left retina.There was no other information. There is no sign today of recurrent rectal cancer of a new colorectal primary. He seems to be healthy and well at this time. No new skin cancers were seen. His abdomen was unremarkable. He is not smoking. He is compliant with his therapies and working to lose weight. Questions H ave you experienced fever, chills, cough, sore throat, shortness of breath, difficulty breathing, muscle aches, loss of taste or smell? N o H ave you been exposed to the virus within the last 10 days? N o H ave you travelled internationally in the last 10 days? N o H ave you been exposed to COVID-19 in the past? Y es * ROS: G eneral/Constitutional: pain o nly normal aches and pains. C hills d enies.?Fatigue a dmits. F ever d enies. E NT: Decreased hearing d enies. R espiratory: Cough d enies. C ardiovascular: Chest pain with exertion d enies. D yspnea on exertion?denies. S hortness of breath d enies. G astrointestinal: Constipation o ccasional. D ecreased appetite d enies. D iarrhea d enies. H eartburn d enies. N ausea d enies. R ectal bleeding d enies. V omiting d enies. H ematology: bruising d enies. p etechiae d enies. S wollen glands n one have been noted. G enitourinary: Frequent urination o nce a night. M usculoskeletal: Muscle aches d enies. P ainful joints d enies. S ciatica d enies. W eakness d enies. S kin: Itching d enies. R criss d enies. S kin lesion(s)?No new lesions. N eurologic: Difficulty speaking d enies. D izziness d enies.?Headache d enies. L ow back pain d enies. P sychiatric: Depressed mood d enies. * Medical History: * Surgical History: c olon surgery [facility] [place] Basal cell removal 2rectal surgery 06/2021 * Hospitalization/Major Diagno stic Procedure: R esection rectal cancer 06/2021 * Family History: F ather: 84 yrs, [...] x-cigarette smoker Bhupinder preciado was born and [place], [place]. He has 3 children, 2 sons and one daughter. He has no grandchildren. He is . 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 He has had no exposures to toxic materials or asbestos. * Medications: T akingNicotine Mini 2 MG Lozenge as directed Mouth/Throat Dicyclomine HCl 20 MG Tablet 1 tablet Orally Three times a dayOmeprazole 20 MG Capsule Delayed Release as directed Oral Once a dayMedication List reviewed and reconciled with the patientTaking Nicotine Mini 2 MG Lozenge as directed Mouth/Throat Taking Dicyclomine HCl 20 MG Tablet 1 tablet Orally Three times a dayTaking Omeprazole 20 MG Capsule Delayed Release as directed Oral Once a dayMedication List reviewed and reconciled with the patient * Allergies: N o Known Drug Allergyno[Allergies Verified] Objective: * Vitals: H t: 67, Wt: 160, BMI:25.06, BP: 137/73, HR: 49, Temp: 97.2, Wt-k.57. * P ast Orders: I maging:US abdomen comp w elastography (Order Date - 09/04/2023) (Collection Date - 09/04/2023) Lab:Liver Panel * Order Date 11/28/2023 10/07/2023 Bilirubin Total 0.3 (Ref Range: 0.0-1.0 mg/dL) 0.6 (Ref Range: 0.0-1.0 mg/dL) Bilirubin Direct 0.1 (Ref Range: 0.0-0.5 mg/dL) 0.2 (Ref Range: 0.0-0.5 mg/dL) Aspartate Amino Transferase 24 (Ref Range: 5-37 U/L) 29 (Ref Range: 5-37 U/L) Alanine Aminotransferase 18 (Ref Range: 0-40 U/L) 22 (Ref Range: 0-40 U/L) Total Protein 7.6 (Ref Range: 6.5-8.0 g/dL) 7.6 (Ref Range: 6.5-8.0 g/dL) Albumin Level 4.1 (Ref Range: 3.5-5.0 g/dL) 4.1 (Ref Range: 3.5-5.0 g/dL) Alkaline Phosphatase 55 (Ref Range: 39-117 U/L) 42 (Ref Range: 39-117 U/L) * Lab:Hep C Viral Load * Order Date 11/28/2023 10/17/2023 08/15/2023 Hepatitis C Viral Load <15 NOT DETECTED (Ref Range: NOT DETECTED IU/mL) <15 NOT DETECTED (Ref Range: NOT DETECTED IU/mL) [id number] A (Ref Range: NOT DETECTED IU/mL) HCV Log PCR <1.18 NOT DETECTED (Ref Range: NOT DETECTED Log IU/mL) <1.18 NOT DETECTED (Ref Range: NOT DETECTED Log IU/mL) 6.06 A (Ref Range: NOT DETECTED Log IU/mL) * Examination: G eneral Examination: GENERAL APPEARANCE: p leasant, well nourished, well developed, in no acute distress, calm and relaxed , overweight , man. HEAD: a traumatic, normocephalic. EYES: e louis, [...] normal, no ascites, no organomegaly, no mass , overweight. RECTAL EXAM: n ot examined. MUSCULOSKELETAL: e xtremities unremarkable, no clubbing, cyanosis or edema. PERIPHERAL PULSES: n ormal. NEUROLOGIC: a lert and oriented, cranial nerves 2-12 grossly intact, deep tendon reflexes 2+ symmetrical, motor strength normal upper and lower extremities, sensory exam intact. PSYCH: a lert, oriented. Assessment: * Assessment: 1. B natalie cell carcinoma of nose - C44.311 (Primary), The lesion has been removed without recurrence. Scarring is minimal. He has had a very good cosmetic result. 2 . O verweight - E66.3, His body mass index is 25.06. We discussed his weight loss strategy. We set a target BMI for 22.5.?3. B PH (benign prostatic hyperplasia) - N40.0, He rises from sleep once a night on the average. We reviewed several lifestyle modifications he could make to reduce this. 4 . H epatitis - K75.9, The hepatitis C is now in remission with negative titers. 5 . F ormer smoker - Z87.891, He has a planned to prevent relapse and times of stress and illness. 6 . R ectal cancer - C20, There was no sign of recurrent disease on today's examination. He was recently restaged by surgical oncology and remains in remission from the rectal cancer. Plan: * Treatment: 2. O verweight L AB: PROFILE, FASTING (COMPREHENSIVE METABOLIC) L AB: PSA, TOTAL L AB: CBC WITH AUTO DIFF L AB: Lipid Panel 3. B PH (benign prostatic hyperplasia) L AB: PROFILE, FASTING (COMPREHENSIVE METABOLIC) L AB: PSA, TOTAL L AB: CBC WITH AUTO DIFF L AB: Lipid Panel 4. H epatitis L AB: PROFILE, FASTING (COMPREHENSIVE METABOLIC) L AB: PSA, TOTAL L AB: CBC WITH AUTO DIFF L AB: Lipid Panel * Procedure Codes: * Preventive Medicine: Counseling: C are goal follow-up plan: Counseling for abnormal BMI given Y es Above Normal BMI Follow-up D ietary management education, guidance, and counseling, Dietary needs education, Exercise promotion: strength training, Exercise promotion: stretching, Feeding regime, Giving encouragement to exercise, Lifestyle education regarding diet, Nutrition / feeding management, Nutrition therapy, Prescribed activity/exercise education, Prescribed diet education, Prescribed dietary intake, Special diet education, Weight monitoring , Intervention, Order not done: Medical or Other reason not done S moking/Tobacco Use Patient counseled on the dangers of tobacco use and urged to quit. 0 12/05/2023 * Follow Up: A s Scheduled (Reason: Annual Exam) * Images: * Sign off status: Completed true * Provider: Brianna Pineda MD Date: 0 12/05/2023 Generated for Erickson ramos/Torrie/Zenia on: 05/04/2024 07:38 AM EST History and Physical Notes * HPI (History of Present Illness) Category Sub-Category Detail Notes COVID-19 Screening Questions Have you had any new onset fever, chills, cough, congestion, sore throat, shortness of breath, muscle aches?: No Have you been exposed to the virus withi n the last 10 days?: No Have you travelled internationally in e last 10 days?: No Have you been exposed to COVID-19 in the past?: Yes Examination Category Sub-Category Detail Notes General Examination GENERAL APPEARANCE: pleasant , well nourished, well developed, in no acute distress, calm and relaxed , overweight , man HEAD: atraumatic, normocep halic EYES: eomi, perrla, anicte sarah, conjugate EARS: normal NOSE: septum intact NECK/THYROID: no jugular venous di stention, no carotid bruit, thyroid normal HEART: no clicks, gallops, murmurs, or rubs, regular rhythm, S1, S2 normal, no s3, or vascular bruits LUNGS: clear to auscultatio n ABDOMEN: bowel sounds normal, no ascites, no organomegaly, no mass , overweight NEUROLOGIC: alert and oriented, cranial nerves 2-12 [...]
--- OUTSIDE RECORDS SUMMARY | 2024-02-12 08:24 | XMS_ITS ---
Author Organization Jeovany Pineda III, MD Address [address] [place] [address] Care Team Providers Care Log Rafter Name Role Phone Dr. Jeovany Pineda III Primary Care Provider REASON FOR VISIT New Refill Request Medications Medication SIG (Take, Route, Fr equency, Duration) Notes Start Date End Date Status Omeprazole 20 MG 1 capsule Orally Onc e a day for 30 days Active Social History Sex Assigned At : Social History Observation Description Sex Assigned At Male Encounters Encounter Location Date Provider Diagnosis Jeovany Pineda III, MD [address] [place] [address] [place] [address] 02/12/2024 Jeovany Pineda Basal cell carcinoma of nose C44.311 Assessments Encounter Date Diagnosis (ICD Code) Assessment Notes Treatment Notes Treatment Clinical Notes 02/12/2024 Basal cell carcinoma of nose (ICD-10 - C44.311) The lesion has been removed without recurrence. Scarring is minimal. He has had a very good cosmetic result. Plan Of Treatment Medication Medication Name Sig Start Date Stop Date Notes Omeprazole 20 MG 1 capsule Orally Once a day for 30 days Next Appt Details Provider Name:Jeovany Pineda , 03/11/2025 09:30:00 AM, [address] [place] [address] [place], [address], Provider Name:Jeovany Pineda , 03/05/2026 09:30:00 AM, [address] [place] [address] [place], [address], Progress Notes * Sukhjinder RODRÍGUEZ KDOB:1965 (59 yo M)Acc No.[id number]:02/12/2024 Patient: Sukhjinder GUZMÁN :1965 A ge:59 Y S ex:Male Address:[address] [place] [address], [address] * Refills Refill Omeprazole Capsule Delayed Release, 20 MG, Orally, 30 Capsule, 1 capsule, Once a day, 30 days, Refills=11 * true * Date: Generated for Erickson ramos/Torrie/Katismitting on: 05/04/2024 07:38 AM EST
--- OUTSIDE RECORDS SUMMARY | 2024-02-26 04:30 | XMS_ITS ---
Author Organization Jeovany Pineda III, MD Address [address] [place] [address] Care Team Providers Care Pharmacist Apprentice Name Role Phone Dr. Jeovany Pineda III Primary Care Provider [phone] Allergies Allergen (clinical drug ingredient) Drug/Non Drug Allergy documented on EMR Reaction Allergy Type Onset Date Status No Known Drug Allergy Unknown Drug Allergy Active Results Component Value Reference Range Notes URINE DIP STICK Reviewed date:02/26/2024 09:58:08 AM Interpretation: Performing Lab: Notes/Report: SG 1.015 1.005 - 1.025 pH 6.5 5.0 - 9.0 TYLOR Negative Negative - NIT Negative Negative - PRO 15 Negative - Trace GLU Negative Negative - KET 5 Negative - UBG 0.2 0.1 - 1.8 BLESSING 1 0.2 - 1.3 BLD Negative Negative - REASON FOR VISIT Annual exam, [facility] Medications Medication SIG (Take, Route, Fr equency, Duration) Notes Start Date End Date Status Nicotine Mini 2 MG as directed Mouth/Throat Active Dicyclomine HCl 20 MG 1 tablet Orally Th ree times a day Active Omeprazole 20 MG 1 capsule Orally Once a day Active Social History Tobacco Use: Social History Observation Description Date Details (start date - stop date) Former Smoker NA - NA Sex Assigned At : Social History Observation Description Sex Assigned At Male Tobacco Use/Smoking Question Answer Notes Patient is a former smoker How long has it been since you last smoked? 5-10 years Additional Findings: Tobacco Non-User Ex-cigaret te smoker Tobacco Control (Standard) Question Answer Notes Tobacco use: Former smoker How long has it been since you last smoked? 5-10 years Additional Findings: Tobacco non-user Ex-cigaret te smoker AUDIT-C (Standard) Question Answer Notes Did you have a drink containing alcohol in the p ast year? No Points 0 Interpretation Negative Problems Problem Type SNOMED Code ICD Code Onset Dates Problem Status W/U Status Risk Notes Problem [id number] History of hepatitis C (Z86.19) Active confirmed He has been treated and his viral titers are now 0. 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 Scarring is minimal. He has had a very good cosmetic result. 02/26/2024 Rectal cancer (ICD-10 - C20) There was no sign of recurrent disease on today's examination. He was recently restaged by surgical oncology and remains in remission from the rectal cancer. 02/26/2024 Overweight (ICD-10 - E66.3) His body mass index is 25.06. We discussed his weight loss strategy. We set a target BMI for 22.5. 02/26/2024 BPH (benign prostatic hyperplasia) (ICD-10 - N40.0) He rises from sleep once a night on the average. We reviewed several lifestyle modifications he could make to reduce this. 02/26/2024 Calculus of gallbladder without cholecystitis without obstruction (ICD-10 - K80.20) 02/26/2024 Elevated total protein (ICD-10 - R77.8) His total protein has returned to normal. 02/26/2024 Former smoker (ICD-10 - Z87.891) He has a planned to prevent relapse and times of stress and illness. 02/26/2024 History of hepatitis C (ICD-10 - Z86.19) He has been treated and his viral titers are now 0. Plan Of Treatment Medication Medication Name Sig Start Date Stop Date Notes Nicotine Mini 2 MG as directed Mouth/Throat Dicyclomine HCl 20 MG 1 tablet Orally Three times a day Omeprazole 20 MG 1 capsule Orally Once a day Next Appt Details Follow Up: 6 Months, In six months, Reason: OV, Routine checkup Provider Name:Jeovany Pineda , 03/11/2025 09:30:00 AM, [address] [place] [address] [address], [place], [address], Provider Name:Jeovany Pineda , 03/05/2026 09:30:00 AM, [address] [place] [address] [address], [place], [address], Progress Notes * AGUSTÍN Sukhjinder KDOB:1965 (59 yo M)Acc No.[id number]:02/26/2024 Progress Notes Patient: Sukhjinder GUZMÁN Provider: Brianna Pineda MD :1965 A ge:59 Y S ex:Male Date:02/26/2024 Address:[address] [place] [address] [place] [id number] Subjective: * Chief Complaints: * [facility] [place] [facility] * HPI: D epression Screening: PHQ-9 L ittle interest or pleasure in doing things?Not at all F eeling down, depressed, or hopeless N ot at all T rouble falling or staying asleep, or sleeping too much N ot at all F eeling tired or having little energy N ot at all P oor appetite or overeating N ot at all F eeling bad about yourself or that you are a failure, or have let yourself or your family down N ot at all T rouble concentrating on things, such as reading the newspaper or watching television N ot at all M oving or speaking so slowly that other people could have noticed; or the opposite, being so fidgety or restless that you have been moving around a lot more than usual N ot at all T houghts that you would be better off or of hurting yourself in some way N ot at all T otal Score 0 C OVID-19 Screening: Questions H ave you experienced fever, chills, cough, sore throat, shortness of breath, difficulty breathing, muscle aches, loss of taste or smell? N o H ave you been exposed to the virus within the last 10 days? N o H ave you travelled internationally in the last 10 days? N o H ave you been exposed to COVID-19 in the past? N o S ELOINA Questions: SDOH Questions I n the past year have you been worried about losing your housing? N o I n the past year have you or any family members you live with been unable to get any of the following when it was really needed? Check all that apply: N one * : The patient, a 59-year-old male, has been followed up for being overweight in the past. He had a skin cancer on his nose, which is now healed and not visible. He also had gallstones but is not currently experiencing any problems related to it. He does not have any issues with nocturia. He had a history of rectal bleeding but is currently cancer-free. He is scheduled for a colonoscopy in June. He had elevated liver tests in the past, which are now normal. He was treated for Hepatitis C, with the last recorded count in July being 114,000. He has no new problems. His PSA was 4.4, which is now back to normal. His cholesterol has decreased from 226 to 184. His kidney function is normal. He is receiving monthly shots for an eye condition, which is not macular degeneration, from Dr. Lopez at [facility]. He received Hepatitis A&B and flu shots last month. * ROS: G eneral/Constitutional: pain o nly [...] History: * Surgical History[place] [facility] [place] Basal cell removal 2rectal surgery 06/2021No history * Hospitalization/Major Diagno stic Procedure: R esection rectal cancer 06/2021No history * Family History: F ather: 84 yrs, [...] dditional Findings: Tobacco Non-User E x-cigarette smoker Tobacco Control (Standard) T obacco use: F ormer smoker H ow long has it been since you last smoked??5-10 years A dditional Findings: Tobacco non-user E x-cigarette smoker D rugs/Alcohol: D rugs H ave you used drugs other than those for medical reasons in the past 12 months? N o D rug/Alcohol: A LILLY-C (Standard) D id you have a drink containing alcohol in the past year? N o P oints 0 I nterpretation N egative Bhupinder preciado was born and [place], [place]. He has 3 children, 2 sons and one daughter. He has no grandchildren. He is . 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 He has had no exposures to toxic materials or asbestos. * Medications: T akingNicotine Mini 2 MG Lozenge as directed Mouth/Throat Dicyclomine HCl 20 MG Tablet 1 tablet Orally Three times a day Omeprazole 20 MG Capsule Delayed Release 1 capsule Orally Once a day Medication List reviewed and reconciled with the patientTaking Nicotine Mini 2 MG Lozenge as directed Mouth/Throat Taking Dicyclomine HCl 20 MG Tablet 1 tablet Orally Three times a day Taking Omeprazole 20 MG Capsule Delayed Release 1 capsule Orally Once a day Medication List reviewed and reconciled with the patient * Allergies: N o Known Drug Allergyno[Allergies Verified] Objective: * Vitals: H t: 67, Wt: 161, BMI:25.21, BP: 134/74, HR: 53, Temp: 99.4, Wt-k.03. * P ast Orders: Lab:Liver Panel * Collection Date 11/28/2023 10/07/2023 Collection Time 09:19 AM 09:51 AM Order Date 11/28/2023 10/07/2023 Bilirubin Total 0.3 [...] U/L) * Lab:Hep C Viral Load * Collection Date 11/28/2023 10/17/2023 08/15/2023 Collection Time 09:19 AM 01:09 PM 01:34 PM Order Date 11/28/2023 10/17/2023 08/15/2023 Hepatitis C Viral Load <15 NOT DETECTED (Ref Range: NOT DETECTED IU/mL) <15 NOT DETECTED (Ref Range: NOT DETECTED IU/mL) [id number] A (Ref Range: NOT DETECTED IU/mL) HCV Log PCR <1.18 NOT DETECTED (Ref Range: NOT DETECTED Log IU/mL) <1.18 NOT DETECTED (Ref Range: NOT DETECTED Log IU/mL) 6.06 A (Ref Range: NOT DETECTED Log IU/mL) * Lab:Prostate Specific Antige n * Collection Date 02/19/2024 02/14/2023 Collection Time 08:50 AM 11:40 AM Order Date 02/19/2024 02/14/2023 Prostate Specific Antigen 1.87 (Ref Range: <0.05-4.0 ng/mL) 4.40 H (Ref Range: <0.05-4.0 ng/mL) * Lab:Lipid Panel * Collection Date 02/19/2024 02/14/2023 03/12/2021 Collection Time 08:50 AM 11:40 AM 08:14 AM Order Date 02/19/2024 02/14/2023 03/12/2021 Triglycerides 87 (Ref Range: <150 mg/dL) 189 H (Ref Range: <150 mg/dL) 309 (Ref Range: mg/dL) Cholesterol 184 (Ref Range: <200 mg/dL) 226 H (Ref Range: <200 mg/dL) 206 (Ref Range: mg/dL) LDL Cholesterol Calculated 124 H (Ref Range: <100 mg/dL) 155 H (Ref Range: <100 mg/dL) 115 (Ref Range: mg/dl) HDL Cholesterol 43 (Ref Range: >40 mg/dL) 34 L (Ref Range: >40 mg/dL) 30 (Ref Range: mg/dL) * Lab:Comprehensive [place]. Pane l Fast * Collection Date 02/19/2024 02/14/2023 03/12/2021 Collection Time 08:50 AM 11:40 AM 08:14 AM Order Date 02/19/2024 02/14/2023 03/12/2021 Sodium 141 (Ref Range: 135-145 mmol/L) 141 (Ref Range: 135-145 mmol/L) 139 (Ref Range: 135-145 mmol/L) Bilirubin Total 0.7 (Ref Range: 0.0-1.0 mg/dL) 0.5 (Ref Range: 0.0-1.0 mg/dL) 0.5 (Ref Range: 0.0-1.0 mg/dL) Aspartate Amino Transferase 34 (Ref Range: 5-37 U/L) 35 (Ref Range: 5-37 U/L) 40 H (Ref Range: 5-37 U/L) Alanine Aminotransferase 23 (Ref Range: 0-40 U/L) 39 (Ref Range: 0-40 U/L) 42 H (Ref Range: 0-40 U/L) Total Protein 7.6 (Ref Range: 6.5-8.0 g/dL) 8.3 H (Ref Range: 6.5-8.0 g/dL) 7.7 (Ref Range: 6.5-8.0 g/dL) Albumin Level 4.2 (Ref Range: 3.5-5.0 g/dL) 4.1 (Ref Range: 3.5-5.0 g/dL) 4.0 (Ref Range: 3.5-5.0 g/dL) Alkaline Phosphatase 54 (Ref Range: 39-117 U/L) 54 (Ref Range: 39-117 U/L) 50 (Ref Range: 39-117 U/L) Potassium 4.2 (Ref Range: 3.3-5.1 mmol/L) 4.7 (Ref Range: 3.3-5.1 mmol/L) 4.1 (Ref Range: 3.3-5.1 mmol/L) Chloride 104 (Ref Range: 96-108 mmol/L) 107 (Ref Range: 96-108 mmol/L) 105 (Ref Range: 96-108 mmol/L) Carbon Dioxide 30 H (Ref Range: 22-29 mmol/L) 25 (Ref Range: 22-29 mmol/L) 29 (Ref Range: 22-29 mmol/L) Anion Gap 11 L (Ref Range: 12-20) 14 (Ref Range: 12-20) 9 L (Ref Range: 12-20) Blood Urea Nitrogen 17 H (Ref Range: 9-16 mg/dL) 16 (Ref Range: 9-16 mg/dL) 14 (Ref Range: 9-16 mg/dL) Creatinine 0.87 (Ref Range: 0.5-1.4 mg/dL) 0.96 (Ref Range: 0.5-1.4 mg/dL) 0.94 (Ref Range: 0.5-1.4 mg/dL) Estimated Glomerular Filt Rate > 60 > 60 > 60 Glucose Fasting 95 (Ref Range: 60-99 mg/dL) 104 H (Ref Range: 60-99 mg/dL) 95 (Ref Range: 60-99 mg/dL) Calcium 10.0 (Ref Range: 8.4-10.2 mg/dL) 9.8 (Ref Range: 8.4-10.2 mg/dL) 8.7 (Ref Range: 8.4-10.2 mg/dL) * Lab:Complete Blood Count Aut o Diff * Collection Date 02/19/2024 06/26/2023 02/14/2023 Collection Time 08:50 AM 09:33 AM 11:40 AM Order Date 02/19/2024 06/26/2023 02/14/2023 White Blood Count 6.0 (Ref Range: 4.8-10.8 X10*3/uL) 5.9 (Ref Range: 4.8-10.8 X10*3/uL) 6.2 (Ref Range: 4.8-10.8 X10*3/uL) Red Blood Count 4.46 L (Ref Range: 4.60-5.80 X10*6/uL) 4.55 L (Ref Range: 4.60-5.80 X10*6/uL) 4.70 (Ref Range: 4.60-5.80 X10*6/uL) Hemoglobin 14.0 (Ref Range: 14.0-18.0 g/dl) 14.1 (Ref Range: 14.0-18.0 g/dl) 14.5 (Ref Range: 14.0-18.0 g/dl) Hematocrit 41.3 L (Ref Range: 42.0-52.0 %) 41.2 L (Ref Range: 42.0-52.0 %) 43.4 (Ref Range: 42.0-52.0 %) Mean Corpuscular Volume 92.6 (Ref Range: 80.0-98.0 fL) 90.5 (Ref Range: 80.0-98.0 fL) 92.3 (Ref Range: 80.0-98.0 fL) Mean Corpuscular Hemoglobin 31.4 (Ref Range: 27.0-33.0 pg) 31.0 (Ref Range: 27.0-33.0 pg) 30.9 (Ref Range: 27.0-33.0 pg) Mean Corpuscular HGB Conc 33.9 (Ref Range: 31.0-36.0 g/dl) 34.2 (Ref Range: 31.0-36.0 g/dl) 33.4 (Ref Range: 31.0-36.0 g/dl) Red Cell Distribution Width 12.7 (Ref Range: 11.0-16.0 %) 13.4 (Ref Range: 11.0-16.0 %) 13.3 (Ref Range: 11.0-16.0 %) Platelet Count 153 L (Ref Range: 160-400 X10*3/uL) 159 L (Ref Range: 160-400 X10*3/uL) 166 (Ref Range: 160-400 X10*3/uL) Mean Platelet Volume 10.4 (Ref Range: 9.4-12.4 fL) 10.0 (Ref Range: 9.4-12.4 fL) 10.8 (Ref Range: 9.4-12.4 fL) Neutrophils Percent Auto 31.3 L (Ref Range: 45-73 %) 29.0 L (Ref Range: 45-73 %) 33.6 L (Ref Range: 45-73 %) Imm Gran Pct Auto 0.2 (Ref Range: 0.0-0.4 %) 0.0 (Ref Range: 0.0-0.4 %) 0.2 (Ref Range: 0.0-0.4 %) Lymphocytes Percent Auto 53.4 H (Ref Range: 20-40 %) 54.7 H (Ref Range: 20-40 %) 51.5 H (Ref Range: 20-40 %) Monocytes Percent Auto 9.8 (Ref Range: 2-11 %) 9.6 (Ref Range: 2-11 %) 9.2 (Ref Range: 2-11 %) Eosinophils Percent Auto 4.3 H (Ref Range: 0-4 %) 5.3 H (Ref Range: 0-4 %) 4.2 H (Ref Range: 0-4 %) Basophils Percent Auto 1.0 (Ref Range: 0-2 %) 1.4 (Ref Range: 0-2 %) 1.3 (Ref Range: 0-2 %) NRBC Pct Auto 0.0 (Ref Range: 0.0-0.2 /100WBC) 0.0 (Ref Range: 0.0-0.2 /100WBC) 0.0 (Ref Range: 0.0-0.2 /100WBC) Neutrophils Absolute Auto 1.9 L (Ref Range: 2.0-8.3 x10*3/uL) 1.7 L (Ref Range: 2.0-8.3 x10*3/uL) 2.1 (Ref Range: 2.0-8.3 x10*3/uL) Imm Gran Abs Auto 0.01 (Ref Range: 0.00-0.03 X10*3/uL) 0.00 (Ref Range: 0.00-0.03 X10*3/uL) 0.01 (Ref Range: 0.00-0.03 X10*3/uL) Lymphocytes Absolute Auto 3.2 (Ref Range: 1.2-4.9 X10*3/uL) 3.2 (Ref Range: 1.2-4.9 X10*3/uL) 3.2 (Ref Range: 1.2-4.9 X10*3/uL) Monocytes Absolute Auto 0.6 (Ref Range: 0.1-1.2 X10*3/uL) 0.6 (Ref Range: 0.1-1.2 X10*3/uL) 0.6 (Ref Range: 0.1-1.2 X10*3/uL) Eosinophils Absolute Auto 0.3 (Ref Range: 0.0-0.4 X10*3/uL) 0.3 (Ref Range: 0.0-0.4 X10*3/uL) 0.3 (Ref Range: 0.0-0.4 X10*3/uL) Basophils Absolute Auto 0.1 (Ref Range: 0.0-0.2 X10*3/uL) 0.1 (Ref Range: 0.0-0.2 X10*3/uL) 0.1 (Ref Range: 0.0-0.2 X10*3/uL) NRBC Abs Auto 0.000 (Ref Range: 0.0-0.012 X10*3/uL) 0.000 (Ref Range: 0.0-0.012 X10*3/uL) 0.000 (Ref Range: 0.0-0.012 X10*3/uL) * Examination: G eneral Examination: GENERAL APPEARANCE: p leasant, well nourished, well developed, in no acute distress, calm and relaxed, overweight, man. HEAD: a traumatic, normocephalic. EYES: e [...] a lert, oriented. Assessment: * Assessment: 1. R ectal cancer - C20 (Primary) N otes :There was no sign of recurrent disease on today's examination. He was recently restaged by surgical oncology and remains in remission from the rectal cancer. 2 . B natalie cell carcinoma of nose - C44.311 N otes :The lesion has been removed without recurrence. Scarring is minimal. He has had a very good cosmetic result. 3 . O verweight - E66.3 N otes :His body mass index is 25.06. We discussed his weight loss strategy. We set a target BMI for 22.5. 4 . B PH (benign prostatic hyperplasia) - N40.0 N otes :He rises from sleep once a night on the average. We reviewed several lifestyle modifications he could make to reduce this. 5 . C alculus of gallbladder without cholecystitis without obstruction - K80.20 6 . E levated total protein - R77.8 N otes :His total protein has returned to normal. 7 . F ormer smoker - Z87.891 N otes :He has a planned to prevent relapse and times of stress and illness. 8 . H istory of hepatitis C - Z86.19 N otes :He has been treated and his viral titers are now 0. Plan: * Treatment: * Labs: * L ab: PROFILE, FASTING (COMPREHENSIVE METABOLIC) L ab: CBC WITH AUTO DIFF L ab: Lipid Panel L ab: URINE DIP STICK (Collection Date & Time - 02/26/2024) Value Reference Range S G 1.015 1.005 - 1.025 * p H 6.5 5.0 - 9.0 * L EU Negative Negative - * N IT Negative Negative - * P RO 15 Negative - Trace * G ALEXANDREA Negative Negative - * K ET 5 Negative - * U BG 0.2 0.1 - 1.8 * B IL 1 0.2 - 1.3 * B LD Negative Negative - * Procedure Codes: 8 1002 URINE-NO MICRO * Preventive Medicine: Counseling: C are goal [...] of tobacco use and urged to quit. 1 * Follow Up: 6 Months, In six months (Reason: OV, Routine checkup) * Images: * Sign off status: Completed true * Provider: Brianna Pineda MD Date: Generated for Erickson ramos/Torrie/eTransmitting on: 05/04/2024 07:39 AM EST History and Physical Notes * HPI (History of Present Illness) Category Sub-Category Detail Notes Depression Screening PHQ-9 Little inte rest or pleasure in doing things: Not at all Feeling down, depressed, or hopeless: No t at all Trouble falling or staying asleep, or sl eeping too much: Not at all Feeling tired or having little energy: N ot at all Poor appetite or overeating: Not at all Feeling bad about yourself o r that you are a failure, or have let yourself or your family down: Not at all Trouble concentrating on thi ngs, such as reading the newspaper or watching television: Not at all Moving or speaking so slowly that other people could have noticed; or the opposite, being so fidgety or restless that you have been moving around a lot more than usual: Not at all Thoughts that you would be b jason off or of hurting yourself in some way: Not at all Total Score: 0 COVID-19 Screening Questions Have you had any new onset fever, chills, cough, congestion, sore throat, shortness of breath, muscle aches?: No Have you been exposed to the virus withi n the last 10 days?: No Have you travelled internationally in e last 10 days?: No Have you been exposed to COVID-19 in the past?: No SDOH Questions SDOH Questions In the past year have you been worried about losing your housing?: No In the past year have you or any family members you live with been unable to get any of the following when it was really needed? Check all that apply:: None Examination Category Sub-Category Detail Notes General Examination GENERAL APPEARANCE: pleasant , well nourished, well developed, in no acute distress, calm and relaxed, overweight, man HEAD: atraumatic, normocep halic EYES: eomi, [...]
--- OUTSIDE RECORDS SUMMARY | 2024-08-26 05:00 | XMS_ITS ---
Author Organization Jeovany Pineda III, MD Address [address] [place] [address] Care Team Providers Care Placing Judge Name Role Phone Dr. Jeovany Pineda III Primary Care Provider Allergies Allergen (clinical drug ingredient) Drug/Non Drug Allergy documented on EMR Reaction Allergy Type Onset Date Status No Known Drug Allergy Unknown Drug Allergy Active REASON FOR VISIT overweight, BPH, gallstones, retinal problem Medications Medication SIG (Take, Route, Fr equency, Duration) Notes Start Date End Date Status Omeprazole 20 MG 1 capsule Orally Once a day Active Nicotine Mini 2 MG as directed Mouth/Throat Active Dicyclomine HCl 20 MG 1 tablet Orally Th ree times a day Active Social History Tobacco Use: Social History Observation Description Date Details (start date - stop date) Former Smoker NA - NA Sex Assigned At : Social History Observation Description Sex Assigned At Male Tobacco Control (Standard) Question Answer Notes Tobacco use: Former smoker How long has it been since you last smoked? 5-10 years Additional Findings: Tobacco non-user Ex-cigaret te smoker Problems Problem Type SNOMED Code ICD Code Onset Dates Problem Status W/U Status Risk Notes Problem 7978783 Retinal edema (H35.81) Active confirmed . He is not sure what the diagnosis is. Neither is the senior electronics design engineer s. He apparently has some edema of the retinal vessels and is being treated with intraocular injections. Vital Signs Temperature 98.6 degrees Fahrenheit 08/27/19 25 Blood pressure systolic 138 mm Hg 08/27/19 25 Blood pressure diastolic 87 mm Hg 025 Heart Rate 58 /min 08/26/2024 Height 67 in 08/26/2024 Weight 164 lbs 08/26/2024 BMI 25.68 kg/m2 08/26/2024 Encounters Encounter Location Date Provider Diagnosis Jeovany Pineda III, MD [address] [place] [address] DR [place], [place] [id number] 08/26/2024 Jeovany Pineda Basal cell carcinoma of nose C44.311 ; Overweight E66.3 ; Calculus of gallbladder without cholecystitis without obstruction K80.20 ; Rectal cancer C20 ; History of hepatitis C Z86.19 ; Elevated total protein R77.8 ; Former smoker Z87.891 and Retinal edema H35.81 Assessments Encounter Date Diagnosis (ICD Code) Assessment Notes Treat ment Notes Treatment Clinical Notes 08/26/2024 Basal cell carcinoma of nose (ICD-10 - C44.311) The lesion has been removed without recurrence. Scarring is minimal. He has had a very good cosmetic result.There is now a scab on the tip of his nose . He was referred back to dermatology for evaluation. 08/26/2024 Overweight (ICD-10 - E66.3) His body mass index is 25.06. We discussed his weight loss strategy. We set a target BMI for 22.5. 08/26/2024 Calculus of gallbladder without cholecystitis without obstruction (ICD-10 - K80.20) He continues to be asymptomatic. 08/26/2024 Rectal cancer (ICD-10 - C20) There was no sign of recurrent disease on today's examination. He was recently restaged by surgical oncology and remains in remission from the rectal cancer. 08/26/2024 History of hepatitis C (ICD-10 - Z86.19) He has been treated and his viral titers are now 0. 08/26/2024 Elevated total protein (ICD-10 - R77.8) His total protein has returned to normal.He has remained normal and this problem will be removed from his problem list. 08/26/2024 Former smoker (ICD-10 - Z87.891) He has a planned to prevent relapse and times of stress and illness. 08/26/2024 Retinal edema (ICD-10 - H35.81) . He is not sure what the diagnosis is. Neither is the ophthalmologists. He apparently has some edema of the retinal vessels and is being treated with intraocular injections. Plan Of Treatment Medication Medication Name Sig Start Date Stop Date Notes Omeprazole 20 MG 1 capsule Orally Once a day Nicotine Mini 2 MG as directed Mouth/Throat Dicyclomine HCl 20 MG 1 tablet Orally Three times a day Next Appt Details Follow Up: 2 Months, Reason: ov Provider Name:Jeovany Pineda , 03/11/2025 09:30:00 AM, [address] [place] [address] [address], [place], [address], Provider Name:Jeovany Pineda , 03/05/2026 09:30:00 AM, [address] [place] [address] [address], [place], [address], Progress Notes * Sukhjinder RODRÍGUEZ KDOB:1965 (59 yo M)Acc No.[id number]:08/26/2024 Progress Notes Patient: Sukhjinder GUZMÁN Provider: Brianna Pineda MD :1965 A ge:59 Y S ex:Male Date:08/26/2024 Address:[address] [place] [address], [address] Subjective: * Chief Complaints: * O verweightBPHGallstonesRetinal problem * HPI: C OVID-19 Screening: occ noct x 1, fluids benefiber with water before bed, ak's, avril greenberg, retinoloogist, shots in eyes left only, $800 vs 175$. Bhupinder preciado has been well since his last visit. He complains of nocturia once a night but says he drinks. His fiber with fluid before bed. He has a history of skin cancer on the outside of his right nose and recently has had a skin that occasionally bleeds on the tip. He is concerned this may be a new lesion or recurrence. He was referred to dermatology. He has developed a problem with his left thigh. He did not describe it very clearly but his senior electronics design engineer referred him to a retina specialist, Dr. Avril Greenberg, at [facility] on [facility] in [place]. She is giving him injections in the left eye. They are very expensive any cannot afford it and his insurance does not cover it I recommended he is a second opinion or frequent visits to the eye doctor while he is not taking the medication. He has had no rectal bleeding or abdominal pain. Questions H ave you had any new onset fever, chills, cough, congestion, sore throat, shortness of breath, muscle aches? N o * ROS: G eneral/Constitutional: pain [...] enies. R criss d enies. S kin lesion(s)?Tip of nose. N eurologic: Difficulty speaking d enies. D izziness d enies.?Headache d enies. L ow back pain d enies. P sychiatric: Depressed mood d enies. * Medical History: * Surgical History: c olon surgery [facility] [place] 06/2021[facility] Basal cell removal 2rectal surgery 06/2021No [...] Social History: T obacco Use: T obacco Control (Standard) T obacco use: F ormer smoker H ow long has it been since you last smoked??5-10 years A dditional Findings: Tobacco non-user E x-cigarette smoker Bhupinder preciado was born and [place], [place]. He has 3 children, 2 sons and one daughter. He has no grandchildren. He is . 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 He has had no exposures to toxic materials or asbestos. * Medications: T akingOmeprazole 20 MG Capsule Delayed Release 1 capsule Orally Once a day Nicotine Mini 2 MG Lozenge as directed Mouth/Throat Dicyclomine HCl 20 MG Tablet 1 tablet Orally Three times a day Medication List reviewed and reconciled with the patientTaking Omeprazole 20 MG Capsule Delayed Release 1 capsule Orally Once a day Taking Nicotine Mini 2 MG Lozenge as directed Mouth/Throat Taking Dicyclomine HCl 20 MG Tablet 1 tablet Orally Three times a day Medication List reviewed and reconciled with the patient * Allergies: N o Known Drug Allergyno[Allergies Verified] Objective: * Vitals: H t: 67, Wt: 164, BMI:25.68, BP: 138/87, HR: 58, Temp: 98.6, Wt-k.39. * P ast Orders: Lab:Complete Blood Count Aut o Diff * Collection Date 08/24/2024 02/19/2024 06/26/2023 Collection Time 09:09 AM 08:50 AM 09:33 AM Order Date 08/24/2024 02/19/2024 06/26/2023 White Blood Count 6.0 (Ref Range: 4.8-10.8 X10*3/uL) 6.0 (Ref Range: 4.8-10.8 X10*3/uL) 5.9 (Ref Range: 4.8-10.8 X10*3/uL) Red Blood Count 4.67 (Ref Range: 4.60-5.80 X10*6/uL) 4.46 L (Ref Range: 4.60-5.80 X10*6/uL) 4.55 L (Ref Range: 4.60-5.80 X10*6/uL) Hemoglobin 14.7 (Ref Range: 14.0-18.0 g/dl) 14.0 (Ref Range: 14.0-18.0 g/dl) 14.1 (Ref Range: 14.0-18.0 g/dl) Hematocrit 43.4 (Ref Range: 42.0-52.0 %) 41.3 L (Ref Range: 42.0-52.0 %) 41.2 L (Ref Range: 42.0-52.0 %) Mean Corpuscular Volume 92.9 (Ref Range: 80.0-98.0 fL) 92.6 (Ref Range: 80.0-98.0 fL) 90.5 (Ref Range: 80.0-98.0 fL) Mean Corpuscular Hemoglobin 31.5 (Ref Range: 27.0-33.0 pg) 31.4 (Ref Range: 27.0-33.0 pg) 31.0 (Ref Range: 27.0-33.0 pg) Mean Corpuscular HGB Conc 33.9 (Ref Range: 31.0-36.0 g/dl) 33.9 (Ref Range: 31.0-36.0 g/dl) 34.2 (Ref Range: 31.0-36.0 g/dl) Red Cell Distribution Width 12.6 (Ref Range: 11.0-16.0 %) 12.7 (Ref Range: 11.0-16.0 %) 13.4 (Ref Range: 11.0-16.0 %) Platelet Count 172 (Ref Range: 160-400 X10*3/uL) 153 L (Ref Range: 160-400 X10*3/uL) 159 L (Ref Range: 160-400 X10*3/uL) Mean Platelet Volume 10.1 (Ref Range: 9.4-12.4 fL) 10.4 (Ref Range: 9.4-12.4 fL) 10.0 (Ref Range: 9.4-12.4 fL) Neutrophils Percent Auto 32.8 L (Ref Range: 45-73 %) 31.3 L (Ref Range: 45-73 %) 29.0 L (Ref Range: 45-73 %) Imm Gran Pct Auto 0.2 (Ref Range: 0.0-0.4 %) 0.2 (Ref Range: 0.0-0.4 %) 0.0 (Ref Range: 0.0-0.4 %) Lymphocytes Percent Auto 51.5 H (Ref Range: 20-40 %) 53.4 H (Ref Range: 20-40 %) 54.7 H (Ref Range: 20-40 %) Monocytes Percent Auto 8.5 (Ref Range: 2-11 %) 9.8 (Ref Range: 2-11 %) 9.6 (Ref Range: 2-11 %) Eosinophils Percent Auto 6.0 H (Ref Range: 0-4 %) 4.3 H (Ref Range: 0-4 %) 5.3 H (Ref Range: 0-4 %) Basophils Percent Auto 1.0 (Ref Range: 0-2 %) 1.0 (Ref Range: 0-2 %) 1.4 (Ref Range: 0-2 %) NRBC Pct Auto 0.0 (Ref Range: 0.0-0.2 /100WBC) 0.0 (Ref Range: 0.0-0.2 /100WBC) 0.0 (Ref Range: 0.0-0.2 /100WBC) Neutrophils Absolute Auto 2.0 (Ref Range: 2.0-8.3 x10*3/uL) 1.9 L (Ref Range: 2.0-8.3 x10*3/uL) 1.7 L (Ref Range: 2.0-8.3 x10*3/uL) Imm Gran Abs Auto 0.01 (Ref Range: 0.00-0.03 X10*3/uL) 0.01 (Ref Range: 0.00-0.03 X10*3/uL) 0.00 (Ref Range: 0.00-0.03 X10*3/uL) Lymphocytes Absolute Auto 3.1 (Ref Range: 1.2-4.9 X10*3/uL) 3.2 (Ref Range: 1.2-4.9 X10*3/uL) 3.2 (Ref Range: 1.2-4.9 X10*3/uL) Monocytes Absolute Auto 0.5 (Ref Range: 0.1-1.2 X10*3/uL) 0.6 (Ref Range: 0.1-1.2 X10*3/uL) 0.6 (Ref Range: 0.1-1.2 X10*3/uL) Eosinophils Absolute Auto 0.4 (Ref Range: 0.0-0.4 X10*3/uL) 0.3 (Ref Range: 0.0-0.4 X10*3/uL) 0.3 (Ref Range: 0.0-0.4 X10*3/uL) Basophils Absolute Auto 0.1 (Ref Range: 0.0-0.2 X10*3/uL) 0.1 (Ref Range: 0.0-0.2 X10*3/uL) 0.1 (Ref Range: 0.0-0.2 X10*3/uL) NRBC Abs Auto 0.000 (Ref Range: 0.0-0.012 X10*3/uL) 0.000 (Ref Range: 0.0-0.012 X10*3/uL) 0.000 (Ref Range: 0.0-0.012 X10*3/uL) * Lab:[facility]. Claus l Fast * Collection Date 08/24/2024 02/19/2024 02/14/2023 Collection Time 09:09 AM 08:50 AM 11:40 AM Order Date 08/24/2024 02/19/2024 02/14/2023 Sodium 139 (Ref Range: 135-145 mmol/L) 141 (Ref Range: 135-145 mmol/L) 141 (Ref Range: 135-145 mmol/L) Bilirubin Total 0.6 (Ref Range: 0.0-1.0 mg/dL) 0.7 (Ref Range: 0.0-1.0 mg/dL) 0.5 (Ref Range: 0.0-1.0 mg/dL) Aspartate Amino Transferase 30 (Ref Range: 5-37 U/L) 34 (Ref Range: 5-37 U/L) 35 (Ref Range: 5-37 U/L) Alanine Aminotransferase 22 (Ref Range: 0-40 U/L) 23 (Ref Range: 0-40 U/L) 39 (Ref Range: 0-40 U/L) Total Protein 7.6 (Ref Range: 6.5-8.0 g/dL) 7.6 (Ref Range: 6.5-8.0 g/dL) 8.3 H (Ref Range: 6.5-8.0 g/dL) Albumin Level 4.2 (Ref Range: 3.5-5.0 g/dL) 4.2 (Ref Range: 3.5-5.0 g/dL) 4.1 (Ref Range: 3.5-5.0 g/dL) Alkaline Phosphatase 44 (Ref Range: 39-117 U/L) 54 (Ref Range: 39-117 U/L) 54 (Ref Range: 39-117 U/L) Potassium 4.4 (Ref Range: 3.3-5.1 mmol/L) 4.2 (Ref Range: 3.3-5.1 mmol/L) 4.7 (Ref Range: 3.3-5.1 mmol/L) Chloride 104 (Ref Range: 96-108 mmol/L) 104 (Ref Range: 96-108 mmol/L) 107 (Ref Range: 96-108 mmol/L) Carbon Dioxide 31 H (Ref Range: 22-29 mmol/L) 30 H (Ref Range: 22-29 mmol/L) 25 (Ref Range: 22-29 mmol/L) Anion Gap 8 L (Ref Range: 12-20) 11 L (Ref Range: 12-20) 14 (Ref Range: 12-20) Blood Urea Nitrogen 14 (Ref Range: 9-16 mg/dL) 17 H (Ref Range: 9-16 mg/dL) 16 (Ref Range: 9-16 mg/dL) Creatinine 0.82 (Ref Range: 0.5-1.4 mg/dL) 0.87 (Ref Range: 0.5-1.4 mg/dL) 0.96 (Ref Range: 0.5-1.4 mg/dL) Estimated Glomerular Filt Rate > 60 > 60 > 60 Glucose Fasting 81 (Ref Range: 60-99 mg/dL) 95 (Ref Range: 60-99 mg/dL) 104 H (Ref Range: 60-99 mg/dL) Calcium 9.6 (Ref Range: 8.4-10.2 mg/dL) 10.0 (Ref Range: 8.4-10.2 mg/dL) 9.8 (Ref Range: 8.4-10.2 mg/dL) * Lab:Lipid Panel * Collection Date 08/24/2024 02/19/2024 02/14/2023 Collection Time 09:09 AM 08:50 AM 11:40 AM Order Date 08/24/2024 02/19/2024 02/14/2023 Triglycerides 105 (Ref Range: <150 mg/dL) 87 (Ref Range: <150 mg/dL) 189 H (Ref Range: <150 mg/dL) Cholesterol 200 H (Ref Range: <200 mg/dL) 184 (Ref Range: <200 mg/dL) 226 H (Ref Range: <200 mg/dL) LDL Cholesterol Calculated 135 H (Ref Range: <100 mg/dL) 124 H (Ref Range: <100 mg/dL) 155 H (Ref Range: <100 mg/dL) HDL Cholesterol 44 (Ref Range: >40 mg/dL) 43 (Ref Range: >40 mg/dL) 34 L (Ref Range: >40 mg/dL) * Examination: G eneral Examination: GENERAL APPEARANCE: [...] sounds normal, no ascites, no organomegaly, no mass, overweight, Old healed surgical scar. RECTAL EXAM: n ot examined. MUSCULOSKELETAL: e xtremities unremarkable, no clubbing, cyanosis or edema. PERIPHERAL PULSES: n ormal. NEUROLOGIC: a lert and oriented, cranial nerves 2-12 grossly intact, deep tendon reflexes 2+ symmetrical, motor strength normal upper and lower extremities, sensory exam intact. PSYCH: a lert, oriented. Assessment: * Assessment: 1. B natalie cell carcinoma of nose - C44.311 (Primary) N otes :The lesion has been removed without recurrence. Scarring is minimal. He has had a very good cosmetic result.There is now a scab on the tip of his nose . He was referred back to dermatology for evaluation. 2 . O verweight - E66.3 N otes :His body mass index is 25.06. We discussed his weight loss strategy. We set a target BMI for 22.5. 3 . C alculus of gallbladder without cholecystitis without obstruction - K80.20 N otes :He continues to be asymptomatic. 4 . R ectal cancer - C20 N otes :There was no sign of recurrent disease on today's examination. He was recently restaged by surgical oncology and remains in remission from the rectal cancer. 5 . H istory of hepatitis C - Z86.19 N otes :He has been treated and his viral titers are now 0. 6 . E levated total protein - R77.8 N otes :His total protein has returned to normal.He has remained normal and this problem will be removed from his problem list. 7 . F ormer smoker - Z87.891 N otes :He has a planned to prevent relapse and times of stress and illness. 8 . R etinal edema - H35.81 N otes :. He is not sure what the diagnosis is. Neither is the ophthalmologists. He apparently has some edema of the retinal vessels and is being treated with intraocular injections. Plan: * Treatment: * Procedure Codes: * Preventive Medicine: Counseling: [...] tobacco use and urged to quit. 0 08/26/2024 * Follow Up: 2 Months (Reason: ov) * Images: * Sign off status: Completed true * Provider: Brianna Pineda MD Date: 0 08/26/2024 Generated for Carriei rachel/Torrie/eTransmitting on: 05/04/2024 07:39 AM EST History and Physical Notes * HPI (History of Present Illness) Category Sub-Category Detail Notes COVID-19 Screening Questions Have you had any new onset fever, chills, cough, congestion, sore throat, shortness of breath, muscle aches?: No Examination Category Sub-Category Detail Notes General [...] sounds normal, no ascites, no organomegaly, no mass, overweight, Old healed surgical scar NEUROLOGIC: alert and oriented, cranial nerves 2-12 [...]
--- OUTSIDE RECORDS SUMMARY | 2024-10-28 06:15 | XMS_ITS ---
Author Organization Jeovany Pineda III, MD Address [address] [place] [address] Care Team Providers Care Health Care Technician Name Role Phone Dr. Jeovany Pineda III Primary Care Provider [phone] Allergies Allergen (clinical drug ingredient) Drug/Non Drug Allergy documented on EMR Reaction Allergy Type Onset Date Status No Known Drug Allergy Unknown Drug Allergy Active No Known Food Allergy Unknown Drug Allergy Active REASON FOR VISIT Bunch E edema, Time prostatic hypertrophy, History of rectal cancer, Obesity, History of hepatitisC Medications Medication SIG (Take, Route, Fr equency, [...] Additional Findings: Tobacco non-user Ex-cigaret te smoker Vital Signs Temperature 98.2 degrees Fahrenheit 10/29/19 25 Blood pressure systolic 133 mm Hg 10/29/19 25 Blood pressure diastolic 76 mm Hg 025 Heart Rate 65 /min 10/28/2024 Height 67 in 10/28/2024 Weight 168 lbs 10/28/2024 BMI 26.31 kg/m2 10/28/2024 Encounters Encounter Location Date Provider Diagnosis Jeovany Pineda III, MD [address] [place] [address] [place] [address] 10/28/2024 Jeovany Pineda Basal cell carcinoma of nose C44.311 ; Rectal cancer C20 ; Overweight E66.3 ; Calculus of gallbladder without cholecystitis without obstruction K80.20 ; BPH (benign prostatic hyperplasia) N40.0 ; History of hepatitis C Z86.19 ; Retinal edema H35.81 and Former smoker Z87.891 Assessments Encounter Date Diagnosis (ICD Code) Assessment Notes Treat ment Notes Treatment Clinical Notes 10/28/2024 Basal cell carcinoma of nose (ICD-10 - C44.311) The lesion has been removed without recurrence. Scarring is minimal. He has had a very good cosmetic result.There is now a scab on the tip of his nose . He was referred back to dermatology for evaluation.They did not think this was residual cancer. 10/28/2024 Rectal cancer (ICD-10 - C20) There was no sign of recurrent disease on today's examination. He was recently restaged by surgical oncology and remains in remission from the rectal cancer. 10/28/2024 Overweight (ICD-10 - E66.3) His body mass index is 26. He has gained 4 pounds. We reviewed his diet and nutrition and made a plan to lose weight at a rate of one half of a pound per week. 10/28/2024 Calculus of gallbladder without cholecystitis without obstruction (ICD-10 - K80.20) He continues to be asymptomatic. 10/28/2024 BPH (benign prostatic hyperplasia) (ICD-10 - N40.0) He rises from sleep once a night on the average. We reviewed several lifestyle modifications he could make to reduce this. 10/28/2024 History of hepatitis C (ICD-10 - Z86.19) He has been treated and his viral titers are now 0. 10/28/2024 Retinal edema (ICD-10 - H35.81) . He is not sure what the diagnosis is. Neither is the ophthalmologists. He apparently has some edema of the retinal vessels and is being treated with intraocular injections. 10/28/2024 Former smoker (ICD-10 - Z87.891) He has a planned to prevent relapse and times of stress and illness. Plan Of Treatment Medication Medication Name Sig Start Date Stop Date Notes Nicotine Mini 2 MG as directed Mouth/Throat Dicyclomine HCl 20 MG 1 tablet Orally Three times a day Omeprazole 20 MG 1 capsule Orally Once a day Pending Test Test Name Order Date PROFILE, FASTING (COMPREHENSIVE METABOLI C) 10/28/2024 PSA, TOTAL 10/28/2024 CBC w DIFF 10/28/2024 Lipid Panel 10/28/2024 Next Appt Details Follow Up: 4 Months, Reason: ov Provider Name:Jeovany Pineda , 03/11/2025 09:30:00 AM, [address] [place] [address] [address], [place], [address], Provider Name:Jeovany Pineda , 03/05/2026 09:30:00 AM, [address] [place] [address] [address], [place], [address], Progress Notes * Sukhjinder RODRÍGUEZ KDOB:1965 (59 yo M)Acc No.[id number]:10/28/2024 Progress Notes Patient: Sukhjinder GUZMÁN Provider: Brianna Pineda MD :1965 A ge:59 Y S ex:Male Date:10/28/2024 Address:[address] [place] [address], [place] [address], [facility] Subjective: * Chief Complaints: * M ackey E edemaTime prostatic hypertrophyHistory of rectal cancerObesityHistory of hepatitis C * HPI: C OVID-19 Screening: Bhupinder preciado returns for medical management. He has been receiving intraocular injections from ophthalmology for macular any edema. They have beginning to get him the shots less frequently. He has been to the health facilities surveyor who says he has rosacea and ordered treatment. He has not had any symptoms suggestive of recurrent rectal cancer. He denies any hematochezia. He is feeling generally healthy and well, maintaining his weight.The health facilities surveyor did not think your red spot on the bridge of his nose was a skin cancer. Questions H ave you had any new [...] History: * Surgical History: c olon surgery [facility] [place] Basal cell removal ectal surgery 06/2021No [...] x-cigarette smoker Bhupinder preciado was born and [place], [place]. He has 3 children, 2 sons and one daughter. He has no grandchildren. He is . 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 He has had [...] patient * Allergies: N o Known Drug AllergyNo Known Food Allergyno[Allergies Verified] Objective: * Vitals: H t: 67, Wt: 168, BMI:26.31, BP: 133/76, HR: 65, Temp: 98.2, Wt-k.2. * P ast Orders: Lab:Complete Blood Count [...] X10*3/uL) 0.000 (Ref Range: 0.0-0.012 X10*3/uL) * Lab:Comprehensive [place]. [place] l Fast * Collection Date 08/24/2024 02/19/2024 [...] 34 L (Ref Range: >40 mg/dL) * Lab:Hep C Viral Load * Collection Date 08/31/2024 11/28/2023 10/17/2023 Collection Time 09:46 AM 09:19 AM 01:09 PM Order Date 08/31/2024 11/28/2023 10/17/2023 Hepatitis C Viral Load <15 NOT DETECTED (Ref Range: NOT DETECTED IU/mL) <15 NOT DETECTED (Ref Range: NOT DETECTED IU/mL) <15 NOT DETECTED (Ref Range: NOT DETECTED IU/mL) HCV Log PCR <1.18 NOT DETECTED (Ref Range: NOT DETECTED Log IU/mL) <1.18 NOT DETECTED (Ref Range: NOT DETECTED Log IU/mL) <1.18 NOT DETECTED (Ref Range: NOT DETECTED Log IU/mL) * Lab:Liver Panel * Collection Date 08/31/2024 11/28/2023 10/07/2023 Collection Time 09:46 AM 09:19 AM 09:51 AM Order Date 08/31/2024 11/28/2023 10/07/2023 Bilirubin Total 0.4 (Ref Range: 0.0-1.0 mg/dL) 0.3 (Ref Range: 0.0-1.0 mg/dL) 0.6 (Ref Range: 0.0-1.0 mg/dL) Bilirubin Direct 0.2 (Ref Range: 0.0-0.5 mg/dL) 0.1 (Ref Range: 0.0-0.5 mg/dL) 0.2 (Ref Range: 0.0-0.5 mg/dL) Aspartate Amino Transferase 31 (Ref Range: 5-37 U/L) 24 (Ref Range: 5-37 U/L) 29 (Ref Range: 5-37 U/L) Alanine Aminotransferase 22 (Ref Range: 0-40 U/L) 18 (Ref Range: 0-40 U/L) 22 (Ref Range: 0-40 U/L) Total Protein 7.4 (Ref Range: 6.5-8.0 g/dL) 7.6 (Ref Range: 6.5-8.0 g/dL) 7.6 (Ref Range: 6.5-8.0 g/dL) Albumin Level 4.2 (Ref Range: 3.5-5.0 g/dL) 4.1 (Ref Range: 3.5-5.0 g/dL) 4.1 (Ref Range: 3.5-5.0 g/dL) Alkaline Phosphatase 44 (Ref Range: 39-117 U/L) 55 (Ref Range: 39-117 U/L) 42 (Ref Range: 39-117 U/L) * Examination: G eneral Examination: GENERAL APPEARANCE: p leasant, well nourished, well developed, in no acute distress, calm and relaxed, overweight, man. HEAD: a traumatic, normocephalic. EYES: e louis, perrla, anicteric, conjugate. EARS: n ormal. NOSE: s eptum intact, Small red spot bridge of nose without change. ORAL CAVITY: n ormal, unremarkable. NECK/THYROID: n [...] He was referred back to dermatology for evaluation.They did not think this was residual cancer. 3 . O verweight - E66.3 N otes :His body mass index is 26. He has gained 4 pounds. We reviewed his diet and nutrition and made a plan to lose weight at a rate of one half of a pound per week. 4 . C alculus of gallbladder without cholecystitis without obstruction - K80.20 N otes :He continues to be asymptomatic. 5 . B PH (benign prostatic hyperplasia) - N40.0 N otes :He rises from sleep once a night on the average. We reviewed several lifestyle modifications he could make to reduce this. 6 . H istory of hepatitis C - Z86.19 N otes :He has been treated and his viral titers are now 0. 7 . R etinal edema - H35.81 N otes :. He is not sure what the diagnosis is. Neither is the ophthalmologists. He apparently has some edema of the retinal vessels and is being treated with intraocular injections. 8 . F ormer smoker - Z87.891 N otes :He has a planned to prevent relapse and times of stress and illness. Plan: * Treatment: 2. O verweight L AB: PROFILE, FASTING (COMPREHENSIVE METABOLIC) L AB: PSA, TOTAL L AB: CBC w DIFF L AB: Lipid Panel * Procedure [...] tobacco use and urged to quit. 0 10/28/2024 * Follow Up: 4 Months (Reason: ov) * Images: * Sign off status: Completed true * Provider: Brianna Pineda MD Date: 0 10/28/2024 Generated for Carriei rachel/Torrie/Dianeitting on: 05/04/2024 07:39 AM EST History and [...] anicte sarah, conjugate EARS: normal NOSE: septum intact, Small red spot bridge of nose without change NECK/THYROID: no jugular venous di stention, no [...]
--- OUTSIDE RECORDS SUMMARY | 2025-03-03 04:30 | XMS_ITS ---
Author Organization Jeovany Pineda III, MD Address [address] [place] [address] Care Team Providers Care Public Health Specialist Name Role Phone Dr. Jeovany Pineda III Primary Care Provider Allergies Allergen (clinical drug ingredient) Drug/Non Drug Allergy documented on EMR Reaction Allergy Type Onset Date Status No Known Drug Allergy Unknown Drug Allergy Active No Known Food Allergy Unknown Drug Allergy Active REASON FOR VISIT Annual exam Medications Medication SIG (Take, Route, Fr equency, [...] Problem Status W/U Status Risk Notes Problem [id number] Excessive sweating (R61) Active confirmed He complains of mild elevations of temperature and occasional night sweats combined with feelings of warmth in his extremities. He has a decreased sex drive, but is able to get erections. He is going to have a sedimentation rate, testosterone level, thyroid function tests. We will discuss the results. There was no sign of a new malignancy today. 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 Scarring is minimal. He has had a very good cosmetic result.There is now a scab on the tip of his nose . He was referred back to dermatology for evaluation.They did not think this was residual cancer. 03/03/2025 Rectal cancer (ICD-10 - C20) There was no sign of recurrent disease on today's examination. He was recently restaged by surgical oncology and remains in remission from the rectal cancer. 03/03/2025 BPH (benign prostatic hyperplasia) (ICD-10 - N40.0) He experiences nocturia at most once a night. We have discussed lifestyle modifications he could make to reduce this. 03/03/2025 Overweight (ICD-10 - E66.3) His body mass index is 27. He has gained 8 pounds. We reviewed his diet and nutrition and made a plan to lose weight at a rate of one half of a pound per week. 03/03/2025 Former smoker (ICD-10 - Z87.891) He has a planned to prevent relapse and times of stress and illness. 03/03/2025 Elevated total protein (ICD-10 - R77.8) His total protein has returned to normal.He has remained normal and this problem will be removed from his problem list. 03/03/2025 Excessive sweating (ICD-10 - R61) He complains of mild elevations of temperature and occasional night sweats combined with feelings of warmth in his extremities. He has a decreased sex drive, but is able to get erections. He is going to have a sedimentation rate, testosterone level, thyroid function tests. We will discuss the results. There was no sign of a new malignancy today. Plan Of Treatment Medication Medication Name Sig Start Date Stop Date Notes Omeprazole 20 MG 1 capsule Orally Once a day Nicotine Mini 2 MG as directed Mouth/Throat Dicyclomine HCl 20 MG 1 tablet Orally Three times a day Pending Test Test Name Order Date TSH (THYROID STIMULATING HORMONE) 2024 CBC w DIFF 03/03/2025 SED RATE (ESR) 03/03/2025 Free T4 (Free Thyroxine) 03/03/2025 Testosterone, Total 03/03/2025 Next Appt Details Follow Up: 1 Week, Reason: T [facility] Provider Name:Jeovany Pineda , 03/11/2025 09:30:00 AM, [address] [place] [address] [address], [place], [address], Provider Name:Jeovany Pineda , 03/05/2026 09:30:00 AM, [address] [place] [address] [address], [place], [address], Progress Notes * Sukhjinder RODRÍGUEZ KDOB:1965 (60 yo M)Acc No.[id number]:03/03/2025 Progress Notes Patient: Sukhjinder GUZMÁN Provider: Brianna Pineda MD :1965 A ge:60 Y S ex:Male Date:03/03/2025 Address:[address] [place] [address], [facility], [id number] Subjective: * Chief Complaints: * A nnual exam * HPI: D epression Screening: He comes to the office at the age of 60 for his annual visit. He remains in remission from the rectal cancer. He is given a colonoscopy every 3 years and will be due later this year. He has had no rectal pain or bleeding. He has begun regaining the weight he lost over the last 2 years. His chief complaint is that he feels hot at night. His legs become red at night and after walking and feels warm. He has had some night sweats. The redness and swelling and feelings of warmth may also be experiences elsewhere but are primarily in his legs according to his history. He saw dermatology this summer and received an antibiotic for some red spots which have now completely resolved. I have told him he may stop the nicotine.I told him to take the dicyclomine every other day. PHQ-9 L ittle interest or pleasure in [...] ot at all T otal Score 0 Interpretation and Intervention D epression Screening Findings N egative C OVID-19 Screening: Questions H ave you had any new onset fever, chills, cough, congestion, sore throat, shortness of breath, muscle aches? N o S ELOINA Questions: SDOH Questions I n the past year have you been worried about losing your housing? N o I n the past year have you or any family members you live with been unable to get any of the following when it was really needed? Check all that apply: N one * ROS: G eneral/Constitutional: pain o nly [...] enies. R criss d enies. S kin lesion(s)?Red spots have resolved. N eurologic: Difficulty speaking d enies. D izziness d enies.?Headache d enies. L ow back pain d enies. P sychiatric: Depressed mood d enies. * Medical History: * Surgical History: c olon surgery [facility] 06/2021[facility] [place] [facility] Basal cell removal ectal surgery 06/2021 * Hospitalization/Major Diagno stic Procedure: [...] N egative Bhupinder preciado was born and [place], [place]. He has 3 children, 2 sons and one daughter. He has no grandchildren. He is . He worked for [employer] at one time and now works as [...] Objective: * Vitals: H t: 67, Wt: 176, BMI:27.56, BP: 147/81, HR: 67, Temp: 99.0, Wt-k.83. * P ast Orders: Lab:Prostate Specific Antige n * Collection Date 02/24/2025 02/19/2024 02/14/2023 Collection Time 09:12 AM 08:50 AM 11:40 AM Order Date 02/24/2025 02/19/2024 02/14/2023 Prostate Specific Antigen 2.14 (Ref Range: <0.05-4.0 ng/mL) 1.87 (Ref Range: <0.05-4.0 ng/mL) 4.40 H (Ref Range: <0.05-4.0 ng/mL) * Lab:Lipid Panel * Collection Date 02/24/2025 08/24/2024 02/19/2024 Collection Time 09:12 AM 09:09 AM 08:50 AM Order Date 02/24/2025 08/24/2024 02/19/2024 Triglycerides 158 H (Ref Range: <150 mg/dL) 105 (Ref Range: <150 mg/dL) 87 (Ref Range: <150 mg/dL) Cholesterol 204 H (Ref Range: <200 mg/dL) 200 H (Ref Range: <200 mg/dL) 184 (Ref Range: <200 mg/dL) LDL Cholesterol Calculated 136 H (Ref Range: <100 mg/dL) 135 H (Ref Range: <100 mg/dL) 124 H (Ref Range: <100 mg/dL) HDL Cholesterol 37 L (Ref Range: >40 mg/dL) 44 (Ref Range: >40 mg/dL) 43 (Ref Range: >40 mg/dL) * Lab:Comprehensive [place]. Claus l Fast * Collection Date 02/24/2025 08/24/2024 02/19/2024 Collection Time 09:12 AM 09:09 AM 08:50 AM Order Date 02/24/2025 08/24/2024 02/19/2024 Sodium 141 (Ref Range: 135-145 mmol/L) 139 (Ref Range: 135-145 mmol/L) 141 (Ref Range: 135-145 mmol/L) Bilirubin Total 0.4 (Ref Range: 0.0-1.0 mg/dL) 0.6 (Ref Range: 0.0-1.0 mg/dL) 0.7 (Ref Range: 0.0-1.0 mg/dL) Aspartate Amino Transferase 42 H (Ref Range: 5-37 U/L) 30 (Ref Range: 5-37 U/L) 34 (Ref Range: 5-37 U/L) Alanine Aminotransferase 25 (Ref Range: 0-40 U/L) 22 (Ref Range: 0-40 U/L) 23 (Ref Range: 0-40 U/L) Total Protein 7.9 (Ref Range: 6.5-8.0 g/dL) 7.6 (Ref Range: 6.5-8.0 g/dL) 7.6 (Ref Range: 6.5-8.0 g/dL) Albumin Level 4.5 (Ref Range: 3.5-5.0 g/dL) 4.2 (Ref Range: 3.5-5.0 g/dL) 4.2 (Ref Range: 3.5-5.0 g/dL) Alkaline Phosphatase 47 (Ref Range: 39-117 U/L) 44 (Ref Range: 39-117 U/L) 54 (Ref Range: 39-117 U/L) Potassium 4.3 (Ref Range: 3.3-5.1 mmol/L) 4.4 (Ref Range: 3.3-5.1 mmol/L) 4.2 (Ref Range: 3.3-5.1 mmol/L) Chloride 106 (Ref Range: 96-108 mmol/L) 104 (Ref Range: 96-108 mmol/L) 104 (Ref Range: 96-108 mmol/L) Carbon Dioxide 29 (Ref Range: 22-29 mmol/L) 31 H (Ref Range: 22-29 mmol/L) 30 H (Ref Range: 22-29 mmol/L) Anion Gap 10 L (Ref Range: 12-20) 8 L (Ref Range: 12-20) 11 L (Ref Range: 12-20) Blood Urea Nitrogen 14 (Ref Range: 9-16 mg/dL) 14 (Ref Range: 9-16 mg/dL) 17 H (Ref Range: 9-16 mg/dL) Creatinine 0.84 (Ref Range: 0.5-1.4 mg/dL) 0.82 (Ref Range: 0.5-1.4 mg/dL) 0.87 (Ref Range: 0.5-1.4 mg/dL) Estimated Glomerular Filt Rate > 60 > 60 > 60 Glucose Fasting 98 (Ref Range: 60-99 mg/dL) 81 (Ref Range: 60-99 mg/dL) 95 (Ref Range: 60-99 mg/dL) Calcium 9.4 (Ref Range: 8.4-10.2 mg/dL) 9.6 (Ref Range: 8.4-10.2 mg/dL) 10.0 (Ref Range: 8.4-10.2 mg/dL) * Lab:Complete Blood Count Aut o Diff * Collection Date 02/24/2025 08/24/2024 02/19/2024 Collection Time 09:12 AM 09:09 AM 08:50 AM Order Date 02/24/2025 08/24/2024 02/19/2024 White Blood Count 7.7 (Ref Range: 4.8-10.8 X10*3/uL) 6.0 (Ref Range: 4.8-10.8 X10*3/uL) 6.0 (Ref Range: 4.8-10.8 X10*3/uL) Red Blood Count 4.48 L (Ref Range: 4.60-5.80 X10*6/uL) 4.67 (Ref Range: 4.60-5.80 X10*6/uL) 4.46 L (Ref Range: 4.60-5.80 X10*6/uL) Hemoglobin 13.9 L (Ref Range: 14.0-18.0 g/dl) 14.7 (Ref Range: 14.0-18.0 g/dl) 14.0 (Ref Range: 14.0-18.0 g/dl) Hematocrit 41.8 L (Ref Range: 42.0-52.0 %) 43.4 (Ref Range: 42.0-52.0 %) 41.3 L (Ref Range: 42.0-52.0 %) Mean Corpuscular Volume 93.3 (Ref Range: 80.0-98.0 fL) 92.9 (Ref Range: 80.0-98.0 fL) 92.6 (Ref Range: 80.0-98.0 fL) Mean Corpuscular Hemoglobin 31.0 (Ref Range: 27.0-33.0 pg) 31.5 (Ref Range: 27.0-33.0 pg) 31.4 (Ref Range: 27.0-33.0 pg) Mean Corpuscular HGB Conc 33.3 (Ref Range: 31.0-36.0 g/dl) 33.9 (Ref Range: 31.0-36.0 g/dl) 33.9 (Ref Range: 31.0-36.0 g/dl) Red Cell Distribution Width 12.6 (Ref Range: 11.0-16.0 %) 12.6 (Ref Range: 11.0-16.0 %) 12.7 (Ref Range: 11.0-16.0 %) Platelet Count 183 (Ref Range: 160-400 X10*3/uL) 172 (Ref Range: 160-400 X10*3/uL) 153 L (Ref Range: 160-400 X10*3/uL) Mean Platelet Volume 10.2 (Ref Range: 9.4-12.4 fL) 10.1 (Ref Range: 9.4-12.4 fL) 10.4 (Ref Range: 9.4-12.4 fL) Neutrophils Percent Auto 45.2 (Ref Range: 45-73 %) 32.8 L (Ref Range: 45-73 %) 31.3 L (Ref Range: 45-73 %) Imm Gran Pct Auto 0.3 (Ref Range: 0.0-0.4 %) 0.2 (Ref Range: 0.0-0.4 %) 0.2 (Ref Range: 0.0-0.4 %) Lymphocytes Percent Auto 39.5 (Ref Range: 20-40 %) 51.5 H (Ref Range: 20-40 %) 53.4 H (Ref Range: 20-40 %) Monocytes Percent Auto 8.3 (Ref Range: 2-11 %) 8.5 (Ref Range: 2-11 %) 9.8 (Ref Range: 2-11 %) Eosinophils Percent Auto 6.1 H (Ref Range: 0-4 %) 6.0 H (Ref Range: 0-4 %) 4.3 H (Ref Range: 0-4 %) Basophils Percent Auto 0.6 (Ref Range: 0-2 %) 1.0 (Ref Range: 0-2 %) 1.0 (Ref Range: 0-2 %) NRBC Pct Auto 0.0 (Ref Range: 0.0-0.2 /100WBC) 0.0 (Ref Range: 0.0-0.2 /100WBC) 0.0 (Ref Range: 0.0-0.2 /100WBC) Neutrophils Absolute Auto 3.5 (Ref Range: 2.0-8.3 x10*3/uL) 2.0 (Ref Range: 2.0-8.3 x10*3/uL) 1.9 L (Ref Range: 2.0-8.3 x10*3/uL) Imm Gran Abs Auto 0.02 (Ref Range: 0.00-0.03 X10*3/uL) 0.01 (Ref Range: 0.00-0.03 X10*3/uL) 0.01 (Ref Range: 0.00-0.03 X10*3/uL) Lymphocytes Absolute Auto 3.0 (Ref Range: 1.2-4.9 X10*3/uL) 3.1 (Ref Range: 1.2-4.9 X10*3/uL) 3.2 (Ref Range: 1.2-4.9 X10*3/uL) Monocytes Absolute Auto 0.6 (Ref Range: 0.1-1.2 X10*3/uL) 0.5 (Ref Range: 0.1-1.2 X10*3/uL) 0.6 (Ref Range: 0.1-1.2 X10*3/uL) Eosinophils Absolute Auto 0.5 H (Ref Range: 0.0-0.4 X10*3/uL) 0.4 (Ref Range: 0.0-0.4 X10*3/uL) 0.3 (Ref [...] developed, in no acute distress, calm and relaxed: overweight: man. HEAD: a traumatic, normocephalic. EYES: e [...] sounds normal, no ascites, no organomegaly, no mass: overweight. RECTAL EXAM: n ot examined. MUSCULOSKELETAL: [...] think this was residual cancer. 3 . B PH (benign prostatic hyperplasia) - N40.0 N otes :He experiences nocturia at most once a night. We have discussed lifestyle modifications he could make to reduce this. 4 . O verweight - E66.3 N otes :His body mass index is 27. He has gained 8 pounds. We reviewed his diet and nutrition and made a plan to lose weight at a rate of one half of a pound per week. 5 . F ormer smoker - Z87.891 N otes :He has a planned to prevent relapse and times of stress and illness. 6 . E levated total protein - R77.8 N otes :His total protein has returned to normal.He has remained normal and this problem will be removed from his problem list. 7 . E xcessive sweating - R61 N otes :He complains of mild elevations of temperature and occasional night sweats combined with feelings of warmth in his extremities. He has a decreased sex drive, but is able to get erections. He is going to have a sedimentation rate, testosterone level, thyroid function tests. We will discuss the results. There was no sign of a new malignancy today. Plan: * Treatment: 2. B PH (benign prostatic hyperplasia) L AB: TSH (THYROID STIMULATING HORMONE) L AB: SED RATE (ESR) L AB: Free T4 (Free Thyroxine) L AB: Testosterone, Total * Labs: * L ab: CBC w DIFF * Procedure Codes: * Preventive Medicine: Counseling: [...] tobacco use and urged to quit. 1 05/03/2024 * Follow Up: 1 Week (Reason: Telehealth) * Images: * Sign off status: Completed true * Provider: Brianna Pineda MD Date: 05/03/2024 Generated for Carriei rachel/Torrie/eTransmitting on: 05/04/2024 07:39 [...] way: Not at all Total Score: 0 Interpretation and Intervention Depression Scree makeda Findings: Negative COVID-19 Screening Questions Have you had any new onset fever, chills, cough, congestion, sore throat, shortness of breath, muscle aches?: No SDOH Questions SDOH Questions In the [...] developed, in no acute distress, calm and relaxed: overweight: man HEAD: atraumatic, normocep halic EYES: eomi, perrla, anicte sarah, conjugate EARS: normal NOSE: septum intact NECK/THYROID: no jugular venous di stention, no carotid bruit, thyroid normal HEART: no clicks, gallops, murmurs, or rubs, regular rhythm, S1, S2 normal, no s3, or vascular bruits LUNGS: clear to auscultatio n ABDOMEN: bowel sounds normal, no ascites, no organomegaly, no mass: overweight NEUROLOGIC: alert and oriented, cranial nerves [...]
--- OUTSIDE RECORDS SUMMARY | 2025-03-04 07:39 | XMS_ITS | Clinical Summary ---
Author Organization [facility] Address [address] [place] [address] Phone Care Team Providers Care Leadite Man Name Role Phone Jeovany Pineda MD Primary Care Provider [phone] Allergies No known active allergies Medications dicyclomine [...] topic Medical Devices Not on file [place] [address] [place] [address] [place] [address] [facility] Care Teams Leadite Man Relationship Specialty Start Date End Date Jeovany Pineda MD [address] [place] [address] [place] [address] PCP - General Medical Oncology 06/11/21 Additional Source Comments The information contained in this document represents components of the legal health record. It is not the complete legal health record.[facility]
--- OUTSIDE RECORDS SUMMARY | 2025-03-04 07:39 | XMS_ITS | Patient Health Record ---
Author Organization Jeovany Pineda III, MD Address [address] [address] Care Team Providers Care Ecmo Specialist Name Role Phone Dr. Jeovany Pineda III Primary Care Provider Allergies Allergen (clinical drug ingredient) Drug/Non Drug Allergy documented on EMR Reaction Allergy Type Onset Date Status No Known Drug Allergy Unknown Drug Allergy Active No Known Food Allergy Unknown Drug Allergy Active Results Component Value Reference Range Notes Complete Blood Count Auto Di ff Reviewed date:08/26/2024 10:09:04 AM Interpretation: Performing Lab:[facility], [address] [place] [phone] Notes/Report: White Blood Count 6.0 4.8-10.8 X10*3/uL [...] NRBC Abs Auto 0.000 0.0-0.012 X10*3/uL Comprehensive Union. Panel Fa st Reviewed date:08/26/2024 10:09:04 AM Interpretation: Performing Lab:[address] [address] Notes/Report: Sodium 139 135-145 mmol/L Potassium 4.4 [...] Panel Reviewed date:08/26/2024 10:09:04 AM Interpretation: Performing Lab:[address] [phone] Notes/Report: Triglycerides 105 <150 mg/dL Desirable Triglyceride: [...] Panel Reviewed date:09/03/2024 02:47:35 PM Interpretation: Performing Lab:[address] [address] Notes/Report: Bilirubin Total 0.4 0.0-1.0 mg/dL Bilirubin Direct 0.2 0.0-0.5 mg/dL Aspartate Amino Transferase 31 5-37 U/L Alanine Aminotransferase 22 0-40 U/L Total Protein 7.4 6.5-8.0 g/dL Albumin Level 4.2 3.5-5.0 g/dL Alkaline Phosphatase 44 39-117 U/L Hep C Viral Load Reviewed date:09/03/2024 02:47:35 PM Interpretation: Performing Lab:[address] [address] Notes/Report: HepC Viral Load <15 NOT DETECTED NOT DETECTED IU/mL HCV Log PCR <1.18 NOT DETECTED NOT DETECTED Log IU/mL For additional information, please refer to http://education.[employer]/faq/FA Q22v1 (This link is being provided for informational/ educational purposes only.) THIS TEST WAS PERFORMED AT: [facility] [address] [place] [phone] RJ PALACIOS MD Complete Blood Count Auto Di ff Reviewed date:02/25/2025 06:39:19 AM Interpretation: Performing Lab:[address] [address] Notes/Report: White Blood Count 7.7 4.8-10.8 X10*3/uL Red Blood Count 4.48 4.60-5.80 X10*6/uL Hemoglobin 13.9 14.0-18.0 g/dl Hematocrit 41.8 42.0-52.0 % Mean Corpuscular Volume 93.3 80.0-98.0 fL Mean Corpuscular Hemoglobin 31.0 27.0-33.0 pg Mean Corpuscular HGB Conc 33.3 31.0-36.0 g/dl Red Cell Distribution Width 12.6 11.0-16.0 % Platelet Count 183 160-400 X10*3/uL Mean Platelet Volume 10.2 9.4-12.4 fL Neutrophils Percent Auto 45.2 45-73 % Imm Gran Pct Auto 0.3 0.0-0.4 % Lymphocytes Percent Auto 39.5 20-40 % Monocytes Percent Auto 8.3 2-11 % Eosinophils Percent Auto 6.1 0-4 % Basophils Percent Auto 0.6 0-2 % NRBC Pct Auto 0.0 0.0-0.2 /100WBC Neutrophils Absolute Auto 3.5 2.0-8.3 x10*3/u L Imm Gran Abs Auto 0.02 0.00-0.03 X10*3/uL Lymphocytes Absolute Auto 3.0 1.2-4.9 X10*3/u L Monocytes Absolute Auto 0.6 0.1-1.2 X10*3/uL Eosinophils Absolute Auto 0.5 0.0-0.4 X10*3/u L Basophils Absolute Auto 0.1 0.0-0.2 X10*3/uL NRBC Abs Auto 0.000 0.0-0.012 X10*3/uL Comprehensive Union. Panel Fa st Reviewed date:02/25/2025 06:39:19 AM Interpretation: Performing Lab:[facility], [address] [place] [phone] Notes/Report: Sodium 141 135-145 mmol/L Potassium 4.3 3.3-5.1 mmol/L Chloride 106 96-108 mmol/L Carbon Dioxide 29 22-29 mmol/L Anion Gap 10 12-20 Blood Urea Nitrogen 14 9-16 mg/dL Creatinine 0.84 0.5-1.4 mg/dL Estimated Glomerular Filt Rate > 60 Chronic Kidney Disease: Estimated GFR < 60 mL/min/1.73m2 Severe Kidney Disease: Estimated GFR < 15 mL/min/1.73m2 Glucose Fasting 98 60-99 mg/dL Calcium 9.4 8.4-10.2 mg/dL Bilirubin Total 0.4 0.0-1.0 mg/dL Aspartate Amino Transferase 42 5-37 U/L Alanine Aminotransferase 25 0-40 U/L Total Protein 7.9 6.5-8.0 g/dL Albumin Level 4.5 3.5-5.0 g/dL Alkaline Phosphatase 47 39-117 U/L Lipid Panel Reviewed date:02/25/2025 06:39:19 AM Interpretation: Performing Lab:[facility], [address] [place] [id number] Notes/Report: Triglycerides 158 <150 mg/dL Desirable Triglyceride: less than 150 mg/dL Borderline High Triglyceride 150-199 mg/dL High Triglyceride: 200-499 mg/dL Very High Triglyceride: greater than or equal to 5OO mg/dL Cholesterol 204 <200 mg/dL Desirable Cholesterol: less than 200 mg/dL Borderline High Cholesterol: 200-239 mg/dL High Cholesterol: greater than 239 mg/dL LDL Cholesterol Calculated 136 <100 mg/dL Desirable LDL: less than 100 mg/dL Near Optimal/Above Optimal LDL: 110-129 mg/dL Borderline High LDL: 130-159 mg/dL High LDL: 160-189 mg/dL Very High LDL: greater than or equal to 190 mg/dL HDL Cholesterol 37 >40 mg/dL Desirable HDL: greater than 40 mg/dL Note: This HDL assay may give artificially low results in patients with liver disease. Prostate Specific Antigen Reviewed date:02/25/2025 06:39:19 AM Interpretation: Performing Lab:[facility], [address] [place] [phone] Notes/Report: Prostate Specific Antigen 2.14 <0.05-4.0 ng/mL PSA methodology: [place] Alinity i Chemiluminescent Microparticle Immunoassay (CMIA) Reason For Referral Reason Consult and Treat New lesion on tip of nose Diagnosis 1 Lesion of nose (J34. 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 Patient was made aware he does have to call and schedule his appointment, Ani Perez 08/27/2024 03:53:05 PM > Patient is scheduled for 09/16/24 @ 9am in the [facility] Referral Priority Routine Referral Appointment Date [...] COVID-19 Comirnaty Pfizer-BioNTech Unknown 01/01/2024 A dministered Flu-ccIIv3, p-free Unknown 01/01/2024 Administered Comirnaty Pfizer COVID-19 12+ Unknown 01/01/2024 Admini stered Comirnaty Pfizer COVID-19 12+ Unknown 01/23/2023 Admini stered Comirnaty Pfizer COVID-19 12+ Unknown 12/09/2024 Admini stered Social History Tobacco Use: Social History Observation [...] Problem Status W/U Status Risk Notes Problem 12014616 Excessive sweating (R61) Active confirmed He complains of mild elevations of temperature and occasional night sweats combined with feelings of warmth in his extremities. He has a decreased sex drive, but is able to get erections. He is going to have a sedimentation rate, testosterone level, thyroid function tests. We will discuss the results. There was no sign of a new malignancy today. Problem 3154147 Former smoker (Z87.891) Active confirmed He has a planned to prevent relapse and times of stress and illness. Problem Overweight (185005637) Overweight (E66.3) Active confirmed His body mass index is 27. He has gained 8 pounds. We reviewed his diet and nutrition and made a plan to lose weight at a rate of one half of a pound per week. Problem 367560519097673 Obesity (BMI 30.0-34.9) (E66.9) Active confirmed His body mass index is slightly over 30. We discussed diet and nutrition. We made a plan to lose weight at a rate of one half of a pound per week through a diet restricted in fat calories and sodium combined with regular physical activity. 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 He is not sure what the diagnosis is. Neither is the ophthalmologis ts. He apparently has some edema of the retinal vessels and is being treated with intraocular injections. Problem 63946254 Calculus of gallbladder without cholecystitis without obstruction (K80.20) Active confirmed He continues to be asymptomatic. Problem Benign prostatic hyperplasia (816658265) BPH (benign prostatic hyperplasia) (N40.0) Active confirmed He experiences nocturia at most once a night. We have discussed lifestyle modifications he could make to reduce this. Problem 132479895 Rectal cancer (C20) Active confirmed There was no sign of recurrent disease on today's examination. He was recently restaged by surgical oncology and remains in remission from the rectal cancer. Problem 988490286 Elevated total protein (R77.8) Active confirmed His total protein has returned to normal.He has remained normal and this problem will be removed from his problem list. Problem 41324027171942 History of hepatitis C (Z86.19) Active confirmed He has been treated and his viral titers are now 0. Problem 519772637 Basal cell carcinoma of nose (C44.311) Active confirmed The lesion mar s been removed without recurrence. Scarring is minimal. He has had a very good cosmetic result.There is now a scab on the tip of his nose . He was referred back to dermatology for evaluation.The y did not think this was residual cancer. Problem 404749527 Family history of prostate cancer (Z80.42) Active confirmed He has a strong family history of prostate cancer. His PSA is 4.4. This will be followed carefully. Vital Signs Heart Rate 67 /min 03/03/2025 Temperature 99.0 degrees Fahrenheit 03/03/2025 Blood pressure diastolic 81 mm Hg 03/03/2025 Height 67 in 03/03/2025 Blood pressure systolic 147 mm Hg 03/03/2025 Weight 176 lbs 03/03/2025 BMI 27.56 kg/m2 03/03/2025 Encounters Encounter Location Date Provider Diagnosis Jeovany Pineda III, MD [address] [place] [address] [place] [phone] 08/26/2024 Jeovany Pineda Basal cell carcinoma of nose C44.311 ; Overweight E66.3 ; Calculus of gallbladder without cholecystitis without obstruction K80.20 ; Rectal cancer C20 ; History of hepatitis C Z86.19 ; Elevated total protein R77.8 ; Former smoker Z87.891 and Retinal edema H35.81 Jeovany Pineda III, MD [address] [place] [address] [place] [phone] 10/28/2024 Jeovany Pineda Basal cell carcinoma of nose C44.311 ; Rectal cancer C20 ; Overweight E66.3 ; Calculus of gallbladder without cholecystitis without obstruction K80.20 ; BPH (benign prostatic hyperplasia) N40.0 ; History of hepatitis C Z86.19 ; Retinal edema H35.81 and Former smoker Z87.891 Jeovany Pineda III, MD [address] [place] [address] [place] [address] 03/03/2025 Jeovany Pineda Basal cell carcinoma of nose C44.311 ; Rectal cancer C20 ; BPH (benign prostatic hyperplasia) N40.0 ; Overweight E66.3 ; Former smoker Z87.891 ; Elevated total protein R77.8 and Excessive sweating R61 Assessments Encounter Date Diagnosis (ICD Code) Assessment Notes Treat ment Notes Treatment Clinical Notes 08/26/2024 Overweight (ICD-10 - E66.3) His body [...] in remission from the rectal cancer. 03/03/2025 Basal cell carcinoma of nose (ICD-10 - C44.311) The lesion has been removed without recurrence. Scarring is minimal. He has had a very good cosmetic result.There is now a scab on the tip of his nose . He was referred back to dermatology for evaluation.They did not think this was residual cancer. 08/26/2024 Calculus of gallbladder without cholecystitis without obstruction (ICD-10 - K80.20) He continues to be asymptomatic. 10/28/2024 Overweight (ICD-10 - E66.3) His body mass index is 26. He has gained 4 pounds. We reviewed his diet and nutrition and made a plan to lose weight at a rate of one half of a pound per week. 03/03/2025 BPH (benign prostatic hyperplasia) (ICD-10 - [...] - K80.20) He continues to be asymptomatic. 03/03/2025 Overweight (ICD-10 - E66.3) His body mass index is 27. He has gained 8 pounds. We reviewed his diet and nutrition and made a plan to lose weight at a rate of one half of a pound per week. 08/26/2024 History of hepatitis C (ICD-10 - Z86.19) He has been treated and his viral titers are now 0. 10/28/2024 BPH (benign prostatic hyperplasia) (ICD-10 - N40.0) He rises from sleep once a night on the average. We reviewed several lifestyle modifications he could make to reduce this. 03/03/2025 Former smoker (ICD-10 - Z87.891) He has a planned to prevent relapse and times of stress and illness. 08/26/2024 Elevated total protein (ICD-10 - R77.8) His total protein has returned to normal.He has remained normal and this problem will be removed from his problem list. 10/28/2024 History of hepatitis C (ICD-10 - Z86.19) He has been treated and his viral titers are now 0. 03/03/2025 Elevated total protein (ICD-10 - R77.8) [...] and is being treated with intraocular injections. 03/03/2025 Excessive sweating (ICD-10 - R61) He [...] no sign of a new malignancy today. 08/26/2024 Retinal edema (ICD-10 - H35.81) . [...] PANEL 03/10/2021 LIPID PANEL 11/21/2022 GGT 06/12/2023 TSH (THYROID STIMULATING HORMONE) 2024 FERRITIN 03/10/2021 PSA, TOTAL 02/14/2022 PSA, TOTAL 10/11/2021 PSA, TOTAL 10/28/2024 PSA, TOTAL 11/21/2022 PSA, TOTAL 03/10/2021 PSA, TOTAL+FREE 05/16/2022 CEA 03/10/2021 CBC w DIFF 04/14/2021 CBC w DIFF 11/21/2022 CBC w DIFF 06/12/2023 CBC w DIFF 03/10/2021 CBC w DIFF 05/16/2022 CBC w DIFF 03/03/2025 CBC w DIFF 02/14/2022 CBC w DIFF 10/11/2021 CBC w DIFF 10/28/2024 SED RATE (ESR) 03/03/2025 HEPATITIS A,B,C PROFILE 06/12/2023 US ABD 03/10/2021 VITAMIN D 25-OH TOTAL 03/10/2021 CBC WITH AUTO DIFF 02/20/2023 Lipid Panel 10/11/2021 Lipid Panel 10/28/2024 Lipid Panel 04/14/2021 Lipid Panel 02/20/2023 Free T4 (Free Thyroxine) 03/03/2025 Testosterone, Total 03/03/2025 Next Appt Details Provider Name:Jeovany Pineda , 03/11/2025 09:30:00 AM, [address] [place] [address] [address], [place], [phone], Provider Name:Jeovany Bernard Pineda , 03/05/2026 09:30:00 AM, [address] [place] [address] [address], [place], [address], Insurance Providers Payer Name Payer Address Payer Phone Subscriber Number Group Number Insured Name Patient Relationship to Insured Coverage Start Date Coverage End Date [facility] [address] [place], [place] [id number] [phone] [id number] Sukhjinder Rodríguez Self - patient is the insured Medical (General) History Medical History History ICD Code Cholelithiasis Basal cell carcinoma of the nose Obesity Benign prostatic hypertrophy Stage I adenocarcinoma of the rectum, tr ansanally removed Overweight Rectal cancer in remission Hepatitis C 2023 Former smoker Ocular injections Surgical History Surgery Date(Month/Year) rectal surgery 06/2021 [facility] Basal cell removal 07/31 022 colon surgery [facility] 06/2021 Hospitalization History Reason Date(Month/Year) Resection rectal cancer 06/2021
--- OUTSIDE RECORDS SUMMARY | 2025-03-04 07:40 | XMS_ITS | Encounter Summary ---
Author Organization [facility] Address [address] [facility] [address] [place] [address] Phone Care Team Providers Care Baggage Agent Name Role Phone Jeovany Pineda MD Primary Care Provider [phone] Encounter Details Date Type Department Care Team (Late st Contact Info) Description 06/14/2021 Ancillary Orders [facility],Outside Imaging [address] [place] [address] System, Provider Not In, [facility] [address] [address] Social History Tobacco Use Types Packs/Day Years [...] on filedocumented in this encounter Care Teams Baggage Agent Relationship Specialty Start Date End Date Jeovany Pineda MD [address] [place] [address] [place] [address] PCP - General Medical Oncology 06/11/21 documented as of this encounter Additional Source Comments The information contained in this document represents components of the legal health record. It is not the complete legal health record.[facility]
[2025-03-04 09:53] LABS: MANUAL DIFF FLAG NO
[2025-03-04 09:56] LABS: Hematocrit 43.1 % (42.0-52.0); Hemoglobin 14.6 g/dl (14.0-18.0); Imm Gran Abs Auto 0.01 X10*3/uL (0.00-0.03); Imm Gran Pct Auto 0.1 % (0.0-0.4); Lymphocytes Absolute Auto 3.8 X10*3/uL (1.2-4.9); Mean Corpuscular HGB Conc 33.9 g/dl (31.0-36.0); Mean Corpuscular Hemoglobin 31.3 pg (27.0-33.0); Mean Corpuscular Volume 92.5 fL (80.0-98.0); NRBC Abs Auto 0.000 X10*3/uL (0.0-0.012); NRBC Pct Auto 0.0 /100WBC (0.0-0.2); Platelet Count 179 X10*3/uL (160-400); Red Blood Count 4.66 X10*6/uL (4.60-5.80); White Blood Count 7.5 X10*3/uL (4.8-10.8)
[2025-03-04 10:32] LABS: Free T4 (Free Thyroxine) 0.82 ng/dL (0.71-1.85); Thyroid Stimulating Hormone 1.13 uIU/mL (0.32-4.0)
== END 2025-03-04 07:36 | disposition home or self-care (01) ==
LOC: HO.10HDL 07:35
PROVIDERS: Visit Provider Internal Medicine Medical Oncology
DX: Z00.00 Encounter for general adult medical examination without abnormal findings (principal); R77.8 Other specified abnormalities of plasma proteins; R79.89 Other specified abnormal findings of blood chemistry; N40.0 Benign prostatic hyperplasia without lower urinary tract symptoms; R53.83 Other fatigue; E66.3 Overweight
CPT/HCPCS: 36415; 84403; 84439; 84443; 85025; 85652

== ENCOUNTER 2025-03-31 09:00 | Outpatient (REF) | payer BC, SELFPAY ==
[2025-03-31 09:26] LABS: MANUAL DIFF FLAG NO
[2025-03-31 09:48] LABS: Hematocrit 39.5 % (42.0-52.0); Hemoglobin 13.5 g/dl (14.0-18.0); Imm Gran Abs Auto 0.01 X10*3/uL (0.00-0.03); Imm Gran Pct Auto 0.2 % (0.0-0.4); Lymphocytes Absolute Auto 3.0 X10*3/uL (1.2-4.9); Mean Corpuscular HGB Conc 34.2 g/dl (31.0-36.0); Mean Corpuscular Hemoglobin 31.4 pg (27.0-33.0); Mean Corpuscular Volume 91.9 fL (80.0-98.0); NRBC Abs Auto 0.000 X10*3/uL (0.0-0.012); NRBC Pct Auto 0.0 /100WBC (0.0-0.2); Platelet Count 157 X10*3/uL (160-400); Red Blood Count 4.30 X10*6/uL (4.60-5.80); White Blood Count 6.6 X10*3/uL (4.8-10.8)
== END 2025-03-31 09:01 | disposition home or self-care (01) ==
LOC: HO.LAB 09:00
PROVIDERS: PCP Internal Medicine Medical Oncology; Visit Provider Internal Medicine Medical Oncology
DX: D72.820 Lymphocytosis (symptomatic) (principal)
CPT/HCPCS: 36415; 85025